=== PATIENT | male | born 1950 | race Caucasian/White ===

== ENCOUNTER 2021-12-19 16:09 | Inpatient (IN) | payer MEDICARE, MEDICAID, SELFPAY ==
--- NOTE | ~2021-12-19 | XR_ITS ---
EXAMINATION: XR FOOT, LEFT CLINICAL INFORMATION: Left first toe trauma. Red, painful, rule out fracture. COMPARISON: None TECHNIQUE: AP, lateral, and oblique views of the left foot. FINDINGS: There is enthesopathy of the distal Achilles tendon attachment. Small plantar calcaneal osteophyte. No fracture seen. XR/XR foot LT min 3V IMPRESSION: No fracture seen.
[2021-12-19 16:20] VITALS: BP 110/80; BP 158/94; PULSE 71; PULSE 74; RESP 16; TEMP 36.6; O2SAT 95; O2SAT 98; BMI 36.0
--- NOTE | 2021-12-19 16:39 | ED_ITS ---
HPI - Psych General Chief Complaint: Psychiatric Symptoms Stated Complaint: section 12 Time Seen by Provider: 12/19/21 16:18 History of Present Illness HPI Narrative: Patient is a 71-year-old male with a history of bipolar disorder. Patient has not sleeping. Up all night. Not functioning well at home. Denies any suicidal homicidal ideation. Patient had thoughts about different subjects. He was in the question previously. Patient denies any coughing congestion decrea sed the symptoms. He is vaccinated for COVID. Patient was evaluated in the ED. sent in for admission. Related Data Home Medications Medication Instructions Recorded Confirmed amlodipine 10 mg tablet 10 mg PO DAILY 12/19/21 12/19/21 aspirin 81 mg capsule,delayed 81 mg PO DAILY 12/19/21 12/19/21 release citalopram 40 mg tablet 40 mg PO DAILY 12/19/21 12/19/21 fenofibrate 50 mg capsule 200 mg PO DAILY 12/19/21 12/19/21 gabapentin 300 mg tablet 300 mg PO BEDTIME 12/19/21 12/19/21 glimepiride 2 mg tablet 2 mg PO QAM 12/19/21 12/19/21 hydrochlorothiazide 12.5 mg tablet 12.5 mg PO QAM 12/19/21 12/19/21 levothyroxine 50 mcg capsule 50 mcg PO QAM 12/19/21 12/19/21 lisinopril 40 mg tablet 40 mg PO QAM 12/19/21 12/19/21 metformin 1,000 mg tablet 1,000 mg PO QAM 12/19/21 12/19/21 metformin 500 mg tablet 500 mg PO QPM 12/19/21 12/19/21 Allergies Allergy/AdvReac Type Severity Reaction Status Date / Time No Known Allergies Allergy Verified 12/19/21 16:24 Review of Systems Review of Systems: No fever no chills no cough no congestion or respiratory symptoms. All system reviewed otherwise negative Yes all other systems are reviewed and are negative PMFSH Past Medical History Attestation statement: The following information was validated with the patient. Physical Exam Vital Signs: Vital Signs: Last Vital Signs Temp 98 F 12/19/21 16:20 Pulse 71 12/19/21 16:20 Resp 16 12/19/21 16:20 BP 110/80 12/19/21 16:20 Pulse Ox 98 12/19/21 16:20 O2 Del Method 12/19/21 16:20 BMI result Body Mass Index 36.0 Appearance: Alert. Oriented X3. No acute distress. Eyes: Pupils equal, round and reactive to light. ENT: Pharynx normal. Neck: Normal inspection. Neck supple. No lymph nodes noted. No crepitus CVS: Normal heart rate and rhythm. Pulses normal. Normal S1 and S2 Respiratory: No respiratory distress. Breath sounds normal. No Wheezing. No rales Abdomen: Soft and nontender. No rigidity. No distention. good BS x4 Skin: Skin warm and dry. Normal skin color. Normal skin turgor. Extremities: No lower extremity edema. Neurovascular intact to all extremities. No Lacerations. No Rash Neuro: Oriented X 3. No motor deficit. No sensory deficit. Moving all extermities. No slurred speech. Cranial nerves 2-12 MDM - Psych MDM Narrative Medical decision making narrative: well-appearing no acute distress. Denies any suicidal homicidal ideation at this time. [facility] unaware. Patient is in place. Currently in stable condition. Discharge Plan Discharge Clinical Impression: Bipolar disorder Patient Disposition: Still a Patient Prescriptions: No Action citalopram 40 mg Tablet 40 mg PO DAILY amlodipine 10 mg Tablet 10 mg PO DAILY aspirin 81 mg Capsule,Delayed Release(Dr/Ec) 81 mg PO DAILY fenofibrate 50 mg Capsule 200 mg PO DAILY gabapentin 300 mg Tablet 300 mg PO BEDTIME glimepiride 2 mg Tablet 2 mg PO QAM Rx Instructions: administer with breakfast metformin 1,000 mg Tablet 1,000 mg PO QAM lisinopril 40 mg Tablet 40 mg PO QAM hydrochlorothiazide 12.5 mg Tablet 12.5 mg PO QAM levothyroxine 50 mcg Capsule 50 mcg PO QAM metformin 500 mg Tablet 500 mg PO QPM
[2021-12-19 16:54] LABS: MANUAL DIFF FLAG NO
[2021-12-19 16:55] LABS: COVID-19 Test Negative (Negative)
[2021-12-19 17:03] LABS: Basophils Absolute Auto 0.1 X10*3/uL (0.0-0.2); Basophils Percent Auto 0.8 % (0-2); Eosinophils Absolute Auto 0.4 X10*3/uL (0.0-0.4); Eosinophils Percent Auto 5.8 % (0-4); Hematocrit 35.6 % (42.0-52.0); Imm Gran Abs Auto 0.02 X10*3/uL (0.00-0.03); Imm Gran Pct Auto 0.3 % (0.0-0.4); Lymphocytes Absolute Auto 2.9 X10*3/uL (1.2-4.9); Lymphocytes Percent Auto 45.4 % (20-40); Mean Corpuscular HGB Conc 36.5 g/dl (31.0-36.0); Mean Corpuscular Hemoglobin 34.3 pg (27.0-33.0); Mean Corpuscular Volume 93.9 fL (80.0-98.0); Mean Platelet Volume 11.1 fL (9.4-12.4); Monocytes Absolute Auto 0.6 X10*3/uL (0.1-1.2); Monocytes Percent Auto 8.9 % (2-11); Neutrophils Absolute Auto 2.5 x10*3/uL (2.0-8.3); Neutrophils Percent Auto 38.8 % (45-73); Platelet Count 175 X10*3/uL (160-400); Red Blood Count 3.79 X10*6/uL (4.60-5.80); Red Cell Distribution Width 12.4 % (11.0-16.0); White Blood Count 6.4 X10*3/uL (4.8-10.8)
[2021-12-19 17:11] LABS: Alanine Aminotransferase 59 U/L (0-40); Albumin Level 4.6 g/dL (3.5-5.0); Alkaline Phosphatase 28 U/L (39-117); Anion Gap 18 (12-20); Aspartate Amino Transferase 85 U/L (5-37); Bilirubin Direct 0.2 mg/dL (0.0-0.5); Bilirubin Total 0.5 mg/dL (0.0-1.0); Blood Urea Nitrogen 27 mg/dL (9-16); Calcium 9.8 mg/dL (8.4-10.2); Carbon Dioxide 23 mmol/L (22-29); Chloride 105 mmol/L (96-108); Creatinine Clr Calc Pharmacy 58.5; Estimated Glomerular Filt Rate 52; Glucose Random 80 mg/dL (60-115); Potassium 4.3 mmol/L (3.3-5.1); Sodium 142 mmol/L (135-145); Total Protein 7.8 g/dL (6.5-8.0)
[2021-12-19 17:31] LABS: TSH reflex Free T4 1.84 uIU/mL (0.32-4.0)
--- OUTSIDE RECORDS SUMMARY | 2021-12-19 17:41 | XMS_ITS | Continuity of Care Document ---
:1950 Author Organization [facility] Address [address] [place] [address] Drive [address] [place] [address]- Care Team Providers Name Role Phone OsmanyhildaMadonna Bhandari DO Primary Care Physician [place] [facility] [place](s): 11/16/21 - 12/16/[address] [place], [place] [address] Attending Physician: Afia Mallory Admitting Physician: Afia Mallory Referring Physician: AdmtrAfia Allergies, Adverse Reactions, Alerts No Known Allergies Immunizations Given and Recorded Vaccine Date Status Refusal Reason tetanus/diphtheria/pertussis, acel(Tdap) 06/13/11 Given Medications amLODIPine 5 mg oral tablet 5 mg, 1, tablet, By Mouth, Daily, # 30 tablet, Refills 0, Maintenance, 05/17/21 13:56:00 EDT, Partial fill upon patient request if the prescription is for a schedule II opioid drug. Start Date: 05/17/21 Status: Orderedaspirin 81 mg oral delayed release tablet 81 mg, 1, tablet, By Mouth, Daily, # 30 tablet, Refills 0, Maintenance, 05/17/21 13:56:00 EDT, Partial fill upon patient request if the prescription is for a schedule II opioid drug. Start Date: 05/17/21 Status: Orderedcarbamazepine 200 mg oral capsule, extended release 1 capsule = 200 mg, By Mouth, Daily at bedtime, 0 Refills, Maintenance, 07/18/21 17:20:00 EDT, Partial fill upon patient request if the prescription is for a schedule II opioid drug. Start Date: 07/18/21 Status: Orderedcitalopram 20 mg oral tablet 20 mg, 1, tablet, By Mouth, Daily, # 90 tablet, Refills 0, Maintenance, 05/17/21 13:54:00 EDT, Partial fill upon patient request if the prescription is for a schedule II opioid drug. Start Date: 05/17/21 Status: Orderedfenofibrate 40 mg oral tablet 2 tablet = 80 mg, By Mouth, Daily, 0 Refills, Maintenance, 07/18/21 16:41:00 EDT, Partial fill upon patient request if the prescription is for a schedule II opioid drug. Start Date: 07/18/21 Status: OrderedFish Oil 500 mg oral capsule 2 capsule = 1,000 mg, By Mouth, 2 times a day, 0 Refills, Maintenance, 05/17/21 13:56:00 EDT, Capsule, Partial fill upon patient request if the prescription is for a schedule II opioid drug. Start Date: 05/17/21 Status: Orderedgabapentin 100 mg oral capsule See Instructions, 1 capsule by mouth daily x 1 wk, then 2 capsule daily x 1 wk , then 3 capsule daily, # 90 capsule, Refills 5, Tot. Refills 5, Maintenance, 11/01/21 9:41:00 EDT, Instructions Replace Required Details, Route to Pharmacy Electronic... Start Date: 11/01/21 Status: OrderedGlimepiride = 2 mg, By Mouth, Daily, 0 Refills, Maintenance, 07/18/21 16:46:00 EDT, Partial fill upon patient request if the prescription is for a schedule II opioid drug. Start Date: 07/18/21 Status: OrderedhydroCHLOROthiazide 12.5 mg oral capsule 1 capsule = 12.5 mg, By Mouth, Daily, # 30 capsule, 0 Refills, Maintenance, 05/17/21 13:57:00 EDT, Capsule, Partial fill upon patient request if the prescription is for a schedule II opioid drug. Start Date: 05/17/21 Status: Orderedlevothyroxine 0.05 mg oral tablet 1 tablet = 50 mcg, By Mouth, Daily, # 30 tablet, 0 Refills, Maintenance, 05/17/21 13:57:00 EDT, Tablet, Partial fill upon patient request if the prescription is for a schedule II opioid drug. Start Date: 05/17/21 Status: Orderedlisinopril 10 mg oral tablet 10 mg, 1, tablet, By Mouth, Daily, # 90 tablet, Refills 0, Maintenance, 05/17/21 13:55:00 EDT, Partial fill upon patient request if the prescription is for a schedule II opioid drug. Start Date: 05/17/21 Status: Orderedlisinopril 40 mg oral tablet 1 tablet = 40 mg, By Mouth, Daily, # 30 tablet, 0 Refills, Maintenance, 11/01/21 9:03:00 EDT, Tablet, Partial fill upon patient request if the prescription is for a schedule II opioid drug. Start Date: 11/01/21 Status: OrderedmetFORMIN 500 mg oral tablet 1 tablet = 500 mg, By Mouth, Daily, with meals, # 30 tablet, 0 Refills, Maintenance, 05/17/21 13:56:00 EDT, Tablet, Partial fill upon patient request if the prescription is for a schedule II opioid drug. Start Date: 05/17/21 Status: Orderedmetoprolol 200 mg oral tablet, extended release 1 tablet = 200 mg, By Mouth, Daily, # 30 tablet, 0 Refills, Maintenance, 11/01/21 9:04:00 EDT, ER Tablet, Partial fill upon patient request if the prescription is for a schedule II opioid drug. Start Date: 11/01/21 Status: Orderedmetoprolol 50 mg oral tablet 50 mg, 1, tablet, By Mouth, 2 times a day, # 60 tablet, Refills 0, Maintenance, 05/17/21 13:55:00 EDT, Partial fill upon patient request if the prescription is for a schedule II opioid drug. Start Date: 05/17/21 Status: OrderedQUEtiapine 50 mg oral tablet, extended release 2 tablet = 100 mg, By Mouth, Daily, # 60 tablet, 0 Refills, Maintenance, 05/17/21 13:54:00 EDT, ER Tablet, Partial fill upon patient request if the prescription is for a schedule II opioid drug. Start Date: 05/17/21 Status: Orderedsimvastatin 20 mg/5 mL oral suspension 5 mL = 20 mg, By Mouth, Daily in PM, on an empty stomach, # 150 mL, 0 Refills, Maintenance, 05/17/2212:56:00 EDT, Suspension, Partial fill upon patient request if the prescription is for a schedule IIopioid drug. Start Date: 05/17/21 Status: OrderedVitamin D3 400 intl units/mL oral liquid 1 mL = 10 mcg, By Mouth, Daily, with food, # 50 mL, 0 Refills, Maintenance, 05/17/21 13:57:00 EDT, Liquid, Partial fill upon patient request if the prescription is for a schedule II opioid drug. Start Date: 05/17/21 Status: Ordered Problem List Condition Confirmation Course Effective Status Health Informa nt Dates Status Bipolar disorder Confirmed Active Morbid obesity with BMI Confirmed Active of 40.0-44.9, adult Diabetes Confirmed Active GERD (gastroesophageal Confirmed Active reflux disease) HTN (hypertension) Confirmed Active Hypertriglyceridemia Confirmed Active Hypothyroidism Confirmed Active Severe obesity Confirmed Active Social History Social History Type Response Smoking Status Former smoker, quit more francisca n 30 days ago; Other: < 1 pack a day for 30 yrs; entered on: 06/05/21 Sex Implantable Device List Procedure Provider Procedure Date Device Type Site Repair Hernia Inguinal Tresa AMAYA, 07/20/21 Unknown Gr oin Left Laparoscopic Audi Device Serial Lot or Manufacturing Expiration Distinct MRI Implan table Assigning Identifier Number Batch Date Date Identification Safety Status Authority Number Code Unknown [id number] [email or web address] Unknown 10/21/25 Unknown Unknown Active Unknown [id number] Procedure Provider Procedure Date Device Type Site Repair Hernia Inguinal Tresa AMAYA, 07/20/21 Unknown Gr oin Right Laparoscopic Audi Device Serial Lot or Manufacturing Expiration Distinct MRI Implan table Assigning Identifier Number Batch Date Date Identification Safety Status Authority Number Code Unknown [id number] [email or web address] Unknown 10/21/25 Unknown Unknown Active Unknown [id number] Patient Care team information PersonnelName: Madonna Louis DO Address: Address: [address] [place] [address]
--- OUTSIDE RECORDS SUMMARY | 2021-12-19 17:41 | XMS_ITS | Continuity of Care Document ---
:1950 Author Organization [facility] Address Unavailable , Care Team Providers Name Role Phone NehalibiaMadonna Bhandari DO Primary Care Physician [place] [facility] [place] 06/12/21 - 07/12/21 [facility] Allergies, Adverse Reactions, Alerts No Known Allergies [...] II opioid drug. Start Date: 05/17/21 Status: Orderedcitalopram 20 mg oral tablet 20 mg, 1, tablet, By Mouth, Daily, # 90 tablet, Refills 0, Maintenance, 05/17/21 13:54:00 EDT, Partial fill upon patient request if the prescription is for a schedule II opioid drug. Start Date: 05/17/21 Status: OrderedFish Oil 500 mg oral capsule 2 capsule = 1,000 mg, By Mouth, 2 times a day, 0 Refills, Maintenance, 05/17/21 13:56:00 EDT, Capsule, Partial fill upon patient request if the prescription is for a schedule II opioid drug. Start Date: 05/17/21 Status: OrderedhydroCHLOROthiazide 12.5 mg oral capsule 1 [...] II opioid drug. Start Date: 05/17/21 Status: OrderedmetFORMIN 500 mg oral tablet 1 tablet = 500 mg, By Mouth, Daily, with meals, # 30 tablet, 0 Refills, Maintenance, 05/17/21 13:56:00 EDT, Tablet, Partial fill upon patient request if the prescription is for a schedule II opioid drug. Start Date: 05/17/21 Status: Orderedmetoprolol 50 mg oral tablet 50 [...] Date: 05/17/21 Status: Ordered Problem List Condition Effective Dates Status Health Status Informant Bipolar disorder(Confirmed) Active Morbid obesity with BMI of 40.0-44.9, Active adult(Confirmed) Diabetes(Confirmed) Active GERD (gastroesophageal reflux Active disease)(Confirmed) HTN (hypertension)(Confirmed) Active Hypertriglyceridemia(Confirmed) Active Hypothyroidism(Confirmed) Active Severe obesity(Confirmed) Active Social History Social History Type Response Smoking Status Former smoker, quit more francisca n 30 days ago; Other: < 1 pack a day for 30 yrs; entered on: 06/05/21 Sex
--- OUTSIDE RECORDS SUMMARY | 2021-12-19 17:41 | XMS_ITS | Continuity of Care Document ---
:1950 Author Organization [facility] Address [address] [facility], 3rd Floor, [address] [place] [address]- Care Team Providers Name Role Phone Madonna Louis DO Primary Care Physician [place] [facility] [place] 11/01/21 - 12/01/21 [facility] [address] [facility], [address]rd Floor, [address] [place] [id number] Attending Physician: Afia Mallory [...] Identification Safety Status Authority Number Code Unknown [id number] [email or web address] Unknown 10/21/25 Unknown Unknown Active Unknown [id number] Procedure Provider Procedure Date Device Type Site Repair Hernia Inguinal Tresa AMAYA, 07/20/21 Unknown Gr oin Right Laparoscopic Audi Device Serial Lot or Manufacturing Expiration Distinct MRI Implan table Assigning Identifier Number Batch Date Date Identification Safety Status Authority Number Code Unknown [id number] [email or web address] Unknown 10/21/25 Unknown Unknown Active Unknown [id number] Patient Care team information PersonnelName: Ryan Louis DOla Address: Address: [address] [place] [address]
--- OUTSIDE RECORDS SUMMARY | 2021-12-19 17:41 | XMS_ITS | Continuity of Care Document ---
:1950 Author Organization [facility] Address [address] [place] [address]- Care Team Providers Name Role Phone OsmanyhildaMadonna Bhandari DO Primary Care Physician Encounter [facility] [place] Date(s): 07/20/21 - 07/20/[address] [address] Discharge Disposition: A-D/C Home Attending Physician: Audi Gtz MD Admitting Physician: Audi Gtz MD Referring Physician: Audi Gtz MD Allergies, Adverse Reactions, Alerts No Known Allergies [...] II opioid drug. Start Date: 05/17/21 Status: OrderedGlimepiride = 2 mg, By Mouth, [...] II opioid drug. Start Date: 05/17/21 Status: Orderedibuprofen 800 mg oral tablet 800 mg, 1, tablet, By Mouth, 3 times a day, for 3 days, # 9 tablet, Refills 0, Tot. Refills 0, Acute07/23/21 11:30:00 EDT, 07/20/21 11:30:00 EDT, Print Requisition, Partial fill upon patient request if the prescription is for a schedule II opioid drug. Start Date: 07/20/21 Stop Date: 07/23/21 Status: Orderedlevothyroxine 0.05 mg oral tablet 1 [...] II opioid drug. Start Date: 05/17/21 Status: OrderedoxyCODONE 5 mg oral tablet 5 mg, 1, tablet, By Mouth, Every 6 hours, PRN, for 3 days, # 12 tablet, Refills 0, Tot. Refills 0, Acute 07/23/21 11:30:00 EDT, Pain , Severe, 07/20/21 11:30:00 EDT, Print Requisition, Partial fill upon patient request if the prescription is for a su... Start Date: 07/20/21 Stop Date: 07/23/21 Status: OrderedQUEtiapine 50 mg oral tablet, extended [...] schedule IIopioid drug. Start Date: 05/17/21 Status: OrderedTylenol 325 mg oral tablet 975 mg, 3, tablet, By Mouth, 3 times a day, for 3 days, # 27 tablet, Refills 0, Tot. Refills 0, Acute 07/23/21 11:30:00 EDT, 07/20/21 11:30:00 EDT, Print Requisition, Partial fill upon patient request if the prescription is for a schedule II opioid drug. Start Date: 07/20/21 Stop Date: 07/23/21 Status: OrderedVitamin D3 400 intl units/mL oral [...] Hypertriglyceridemia(Confirmed) Active Hypothyroidism(Confirmed) Active Severe obesity(Confirmed) Active Procedures Procedure Date Related Diagnosis Body Site Status Laparoscopy, surgical; repair initial Completed inguinal hernia bilateral Vital Signs Most recent to oldest 1 2 3 [Reference Range]: Height 170.18 cm 170.18 cm (07/20/21 6:34 AM) (07/18/21 4:35 PM) Weight 122.73 kg 122.73 kg (07/20/21 6:34 AM) (07/18/21 4:35 PM) Oxygen Saturation [94-100 95 % 95 % 92 % %] (07/20/21 12:30 PM) (07/20/21 12:15 PM) *L* (07/20/21 12:00 P M) Pulse Rate [55-90 bpm] 65 bpm (07/20/21 6:34 AM) Body Mass Index 42.38 42.38 [18.5-24.99] *>HHI* *>HHI* (07/20/21 6:34 AM) (07/18/21 4:35 PM) Blood Pressure 146/86 mm Hg 143/85 mm Hg 131/79 mm Hg [90-138/55-84 mm Hg] *H* *H* (07/20/21 12 :00 PM) (07/20/21 12:30 PM) (07/20/21 12:15 PM) Respiratory Rate [16-30 16 br/min 21 br/min 18 br/mi n br/min] (07/20/21 12:30 PM) (07/20/21 12:15 PM) (07/20/21 1 2:00 PM) Temperature [96.8-100.4 99.6 DegF 97.4 DegF 97.4 Deg F DegF] (07/20/21 2:00 PM) (07/20/21 11:30 AM) (07/20/21 6: 34 AM) Liters per Minute 3 L/min (07/20/21 11:45 AM) Mode of Delivery (Oxygen) Room air Nasal cannula Shovel mask (07/20/21 12:30 PM) (07/20/21 11:45 AM) (07/20/21 1 1:30 AM) Blood pressure sites Arm, left (07/20/21 6:34 AM) Temperature Route Temporal Temporal (07/20/21 11:30 AM) (07/20/21 6:34 AM) Dry Weight 122.73 kg (07/18/21 4:35 PM) Dry Weight Obtained Via Patient/family stated (07/18/21 4:35 PM) Social History Social History Type Response Smoking Status Former smoker, quit more francisca n 30 days ago; Other: < 1 pack a day for 30 yrs; entered on: 06/05/21 Sex Medical Equipment Implanted Date:07/20/21 Target Site:Groin Right Description Quantity MRI Core Oncology Model MESH 3D MAX MID LG RT 4X6IN - BARD ([id number]) 1 Bard Unknown EMMANUEL: No Information Assigning Authority: FDA Implanted Date:07/20/21 Target Site:Groin Left Description Quantity MRI Core Oncology Model MESH 3D MAX MID X-LG LT 5X7IN - BARD ([id number]) 1 Bard Unknown EMMANUEL: No Information Assigning Authority: FDA
--- OUTSIDE RECORDS SUMMARY | 2021-12-19 17:41 | XMS_ITS | Continuity of Care Document ---
:1950 Author Organization [facility] Address Unavailable , Care Team Providers Name Role Phone Madonna Louis DO Primary Care Physician Encounter [facility] [place] Date(s): 08/06/21 - 08/13/21 [facility] Attending Physician: Huang Martínez Referring Physician: Madonna Louis DO Allergies, Adverse Reactions, Alerts No Known Allergies [...] Hypertriglyceridemia(Confirmed) Active Hypothyroidism(Confirmed) Active Severe obesity(Confirmed) Active Vital Signs Most recent to oldest [Reference Range]: 1 Height 170.18 cm (08/06/21 10:32 AM) Weight 125.1 kg (08/06/21 10:32 AM) Pulse Rate [55-90 bpm] 62 bpm (08/06/21 10:32 AM) Body Mass Index [18.5-24.99] 43.2 *>HHI* (08/06/21 10:32 AM) Blood Pressure [90-138/55-84 mm Hg] 131/86 mm Hg (08/06/21 10:32 AM) Temperature [96.8-100.4 DegF] 97.5 DegF (08/06/21 10:32 AM) Blood pressure sites Arm, left (08/06/21 10:32 AM) Temperature Route Temporal (08/06/21 10:32 AM) Weight Obtained Via Standing scale (08/06/21 10:32 AM) Social History Social History Type Response Smoking Status Former smoker, quit more francisca n 30 days ago; Other: < 1 pack a day for 30 yrs; entered on: 06/05/21 Sex Medical Equipment Implanted Date:07/20/21 Target Site:Groin Right Description Quantity MRI [employer] Model MESH 3D MAX MID LG RT 4X6IN - BARD ([id number]) 1 Bard Unknown EMMANUEL: No Information Assigning Authority: FDA Implanted Date:07/20/21 Target Site:Groin Left Description Quantity MRI [employer] Model MESH 3D MAX MID X-LG LT 5X7IN - BARD ([id number]) 1 Bard Unknown EMMANUEL: No Information Assigning Authority: FDA
--- OUTSIDE RECORDS SUMMARY | 2021-12-19 17:41 | XMS_ITS | Continuity of Care Document ---
:1950 Author Organization [facility] Address Unavailable , Care Team Providers Name Role Phone Madonna Louis DO Primary Care Physician Encounter [facility] [place] Date(s): 05/17/21 - 06/16/21 [facility] Attending Physician: Afia Mallory Admitting Physician: Afia Mallory Referring Physician: Afia Mallory Allergies, Adverse Reactions, Alerts No Known Allergies [...]
--- OUTSIDE RECORDS SUMMARY | 2021-12-19 17:41 | XMS_ITS | Continuity of Care Document ---
:1950 Author Organization [facility] Address [address] [place] [address]- Care Team Providers Name Role Phone NehalibiaMadonna Bhandari DO Primary Care Physician Encounter [facility] [place] [place] Date(s): 06/05/21 - 07/05/21 [facility] [address] [place], [place] [address] Attending Physician: Afia Mallory Admitting Physician: [...]
--- OUTSIDE RECORDS SUMMARY | 2021-12-19 17:41 | XMS_ITS | Continuity of Care Document ---
:1950 Author Organization [facility] Address [address] [place] [address] Drive [address] [place] [address]- Care Team Providers Name Role Phone Brian Madonna Ferrara DO Primary Care Physician Encounter [facility] [place] Date(s): 11/16/21 - 11/23/[address] [place], [place] [address] Attending Physician: Huang Martníez Allergies, Adverse Reactions, Alerts No Known Allergies [...] Identification Safety Status Authority Number Code Unknown [id number] [email or web address] Unknown 10/21/25 Unknown Unknown Active Unknown [id number] Procedure Provider Procedure Date Device Type Site Repair Hernia Inguinal Tresa AMAYA, 07/20/21 Unknown Gr oin Right Laparoscopic Audi Device Serial Lot or Manufacturing Expiration Distinct MRI Implan table Assigning Identifier Number Batch Date Date Identification Safety Status Authority Number Code Unknown [id number] [email or web address] Unknown 10/21/25 Unknown Unknown Active Unknown [id number] Patient Care team information PersonnelName: Madonna Louis DO Address: Address: [address] [place] [address]
--- OUTSIDE RECORDS SUMMARY | 2021-12-19 17:42 | XMS_ITS | Continuity of Care Document ---
:1950 Author Organization [facility] Address Unavailable , Care Team Providers Name Role Phone Madonna Louis DO Primary Care Physician [place] [facility] [place](s): 08/06/21 - 10/12/21 [facility] Attending Physician: Huang Martínez Referring Physician: Madonna [...] Date:07/20/21 Target Site:Groin Right Description Quantity MRI Consulted Model MESH 3D MAX MID LG RT 4X6IN - BARD ([id number]) 1 Bard Unknown EMMANUEL: No Information Assigning Authority: FDA Implanted Date:07/20/21 Target Site:Groin Left Description Quantity MRI Consulted Model MESH 3D MAX MID X-LG LT 5X7IN - BARD ([id number]) 1 Bard Unknown EMMANUEL: No Information Assigning Authority: FDA
--- OUTSIDE RECORDS SUMMARY | 2021-12-19 17:42 | XMS_ITS | Continuity of Care Document ---
:1950 Author Organization [facility] Address [address] [place] [address] Drive [address] [place] [address]- Care Team Providers Name Role Phone Madonna Louis DO Primary Care Physician Encounter [facility] Date(s): 10/09/21 - 10/16/[address] [place], [place] [address] Attending Physician: Huang Martínez Referring Physician: Madonna [...] oldest [Reference Range]: 1 Height 170.18 cm (10/09/21 3:38 PM) Weight 126.5 kg (10/09/21 3:38 PM) Pulse Rate [55-90 bpm] 60 bpm (10/09/21 3:38 PM) Body Mass Index [18.5-24.99] 43.68 *>HHI* (10/09/21 3:38 PM) Blood Pressure [90-138/55-84 mm Hg] 132/82 mm Hg (10/09/21 3:38 PM) Temperature [96.8-100.4 DegF] 95.1 DegF *L* (10/09/21 3:38 PM) Blood pressure sites Arm, left (10/09/21 3:38 PM) Temperature Route Temporal (10/09/21 3:38 PM) Social History Social History Type Response Smoking Status Former smoker, quit more francisca n 30 days ago; Other: < 1 pack a day for 30 yrs; entered on: 06/05/21 Sex Medical Equipment Implanted Date:07/20/21 Target Site:Groin Right Description Quantity MRI Grocio Model MESH 3D MAX MID LG RT 4X6IN - BARD ([id number]) 1 Bard Unknown EMMANUEL: No Information Assigning Authority: FDA Implanted Date:07/20/21 Target Site:Groin Left Description Quantity MRI Grocio Model MESH 3D MAX MID X-LG LT 5X7IN - BARD ([id number]) 1 Bard Unknown EMMANUEL: No Information Assigning Authority: FDA
--- OUTSIDE RECORDS SUMMARY | 2021-12-19 17:42 | XMS_ITS | Continuity of Care Document ---
:1950 Author Organization [facility] Address Unavailable , Care Team Providers Name Role Phone Madonna Louis DO Primary Care Physician Encounter [facility] Date(s): 05/17/21 - 05/24/21 [facility] Encounter Diagnosis Bilateral inguinal hernia (Discharge Diagnosis) - 05/17/21 Attending Physician: Huang Martínez Referring Physician: Ruben Lozano MD Allergies, Adverse Reactions, Alerts No Known [...] Hypertriglyceridemia(Confirmed) Active Hypothyroidism(Confirmed) Active Severe obesity(Confirmed) Active Diagnosis Diagnosis Type Effective Dates Health Status Clinical In formant Service Bilateral Discharge 05/17/21 inguinal hernia Diagnosis Vital Signs Most recent to oldest [Reference Range]: 1 Height 173.00 cm (05/17/21 1:49 PM) Weight 124 kg (05/17/21 1:49 PM) Pulse Rate [55-90 bpm] 61 bpm (05/17/21 1:49 PM) Body Mass Index [18.5-24.99] 41.43 *>HHI* (05/17/21 1:49 PM) Blood Pressure [90-138/55-84 mm Hg] 146/96 mm Hg *H* (05/17/21 1:49 PM) Temperature [96.8-100.4 DegF] 97.1 DegF (05/17/21 1:49 PM) Blood pressure sites Arm, left (05/17/21 1:49 PM) Temperature Route Temporal (05/17/21 1:49 PM) Social History Social History Type Response Smoking Status Never (less than 100 in life time) entered on: 05/17/21 Sex
--- OUTSIDE RECORDS SUMMARY | 2021-12-19 17:42 | XMS_ITS | Continuity of Care Document ---
:1950 Author Organization [facility] Address Unavailable , Care Team Providers Name Role Phone NehalibiaMadonna Bhandari DO Primary Care Physician Encounter [facility] Date(s): 06/15/21 - 07/15/21 [facility] Allergies, Adverse Reactions, Alerts No Known [...]
[2021-12-19 21:15] LABS: Amphetamine Screen Urine Not Detected (Not Detect); Barbiturates, Urine Not Detected (Not Detect); Benzodiazepines Screen Urine Not Detected (Not Detect); Cannabinoid Screen Urine Not Detected (Not Detect); Cocaine Screen Urine Not Detected (Not Detect); Fentanyl, urine Not Detected (Not Detect); Opiate Screen Urine Not Detected (Not Detect); Phencyclidine Screen Urine Not Detected (Not Detect)
[2021-12-19 21:21] VITALS: BP 140/70; PULSE 77; RESP 18; O2SAT 95
[2021-12-19] MEDS: Metoprolol Succinate ER 100 MG TAB.ER.24H 200 MG PO (21:26)
[2021-12-19] MEDS: Atorvastatin Calcium 10 MG TABLET PO (21:26)
[2021-12-19] MEDS: QUEtiapine Fumarate 300 MG TABLET 600 MG PO (21:26)
[2021-12-19] MEDS: Gabapentin 300 MG CAPSULE PO (21:26)
[2021-12-20 02:25] VITALS: BP 116/69; PULSE 68; RESP 17; TEMP 36.9; O2SAT 97
[2021-12-20] MEDS: Levothyroxine Sodium 50 MCG TABLET PO (06:48)
--- NOTE | 2021-12-20 07:11 | PC.NURSE ---
Patient remained awake most part of the night, no distress observed/reported, medication compliant, disposition per [facility] is section 12 inpatient bed search, VSS, behavior non concerning, will continue to monitor.
[2021-12-20] MEDS: lisinopriL 40 MG TABLET PO (08:47)
[2021-12-20] MEDS: Aspirin Enteric Coated 81 MG TABLET.DR PO (08:48)
[2021-12-20] MEDS: metFORMIN HCl 1,000 MG TABLET 1000 MG PO (08:48)
[2021-12-20] MEDS: Cholecalciferol (Vitamin D3) 25 MCG TABLET PO (08:48)
[2021-12-20] MEDS: amLODIPine Besylate 10 MG TABLET PO (08:48)
[2021-12-20] MEDS: Escitalopram Oxalate 20 MG TABLET PO (08:48)
[2021-12-20] MEDS: hydroCHLOROthiazide 12.5 MG TABLET PO (08:48)
--- NOTE | 2021-12-20 09:15 | PC.NURSE ---
pt seen by N. Inpatient bed search recommended. pt aware of plan. no behavioral issues observed/reported.
[2021-12-20] MEDS: Fenofibrate 160 MG TABLET PO (09:34)
[2021-12-20] MEDS: glipiZIDE 5 MG TABLET PO (09:34)
--- NOTE | 2021-12-20 09:48 | ECG_ITS ---
Test Reason : med clearance Blood Pressure : / mmHG Vent. Rate : 059 BPM Atrial Rate : 059 BPM P-R Int : 206 ms QRS Dur : 116 ms QT Int : 452 ms P-R-T Axes : 050 -35 020 degrees QTc Int : 447 ms Sinus bradycardia Left anterior fascicular block Abnormal ECG No previous ECGs available Referred By: Cinda Izquierdo Electronically Signed By:SANTA FIELD MD
[2021-12-20 11:16] VITALS: BP 142/77; PULSE 67; TEMP 36.8; O2SAT 97
[2021-12-20 14:27] LABS: Glucose, Whole Blood 151 mg/dL (60-115)
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
[2021-12-20 21:30] VITALS: BP 142/77; PULSE 67; TEMP 36.8; O2SAT 97
[2021-12-20] MEDS: Metoprolol Succinate ER 100 MG TAB.ER.24H 200 MG PO (21:42)
[2021-12-20] MEDS: QUEtiapine Fumarate 300 MG TABLET 600 MG PO (21:42)
[2021-12-20] MEDS: Gabapentin 300 MG CAPSULE PO (21:42)
[2021-12-20] MEDS: Atorvastatin Calcium 10 MG TABLET PO (21:44)
[2021-12-21] MEDS: hydrOXYzine HCL 25 MG TABLET PO ×3 (00:59→21:14)
[2021-12-21] MEDS: traZODone HCL 50 MG TABLET PO ×2 (00:59→21:14)
[2021-12-21] MEDS: Mineral Oil/Petrolatum,White 106 GM Tube 1 APPL TOPICAL ×3 (04:14→21:13)
[2021-12-21 09:08] LABS: Glucose, Whole Blood 169 mg/dL (60-115)
[2021-12-21] MEDS: metFORMIN HCl 1,000 MG TABLET 1000 MG PO (09:08)
[2021-12-21] MEDS: Cholecalciferol (Vitamin D3) 25 MCG TABLET PO (09:08)
[2021-12-21] MEDS: Levothyroxine Sodium 50 MCG TABLET PO (09:08)
[2021-12-21] MEDS: glipiZIDE 5 MG TABLET PO (09:09)
[2021-12-21] MEDS: amLODIPine Besylate 10 MG TABLET PO (09:09)
[2021-12-21] MEDS: Aspirin Enteric Coated 81 MG TABLET.DR PO (09:09)
[2021-12-21] MEDS: Fenofibrate 160 MG TABLET PO (09:09)
[2021-12-21] MEDS: hydroCHLOROthiazide 12.5 MG TABLET PO (09:09)
[2021-12-21] MEDS: lisinopriL 40 MG TABLET PO (09:09)
[2021-12-21] MEDS: Escitalopram Oxalate 5 MG TABLET 15 MG PO (09:09)
[2021-12-21 09:26] LABS: Estimated Average Glucose 148 mg/dL; Hemoglobin A1c % 6.8 %
[2021-12-21 09:48] LABS: Alanine Aminotransferase 54 U/L (0-40); Albumin Level 4.2 g/dL (3.5-5.0); Alkaline Phosphatase 26 U/L (39-117); Anion Gap 15 (12-20); Aspartate Amino Transferase 71 U/L (5-37); Bilirubin Direct 0.3 mg/dL (0.0-0.5); Bilirubin Total 0.5 mg/dL (0.0-1.0); Blood Urea Nitrogen 22 mg/dL (9-16); Calcium 9.6 mg/dL (8.4-10.2); Carbon Dioxide 25 mmol/L (22-29); Chloride 102 mmol/L (96-108); Cholesterol 114 mg/dL; Creatinine Clr Calc Pharmacy 55.3; Estimated Glomerular Filt Rate 48; Glucose Fasting 201 mg/dL (60-99); HDL Cholesterol 25 mg/dL; LDL Cholesterol Calculated 56 mg/dl; Potassium 4.3 mmol/L (3.3-5.1); Sodium 138 mmol/L (135-145); Total Protein 7.1 g/dL (6.5-8.0); Triglycerides 169 mg/dL
[2021-12-21 10:08] LABS: Free T4 (Free Thyroxine) 0.76 ng/dL (0.71-1.85); Thyroid Stimulating Hormone 3.28 uIU/mL (0.32-4.0)
[2021-12-21 10:59] LABS: Vitamin B12 382 pg/mL (200-900)
[2021-12-21 11:15] VITALS: BP 125/72; PULSE 67; RESP 16; TEMP 36.2; O2SAT 95
[2021-12-21] MEDS: carBAMazepine ER 200 MG TAB.ER.12H PO (11:24)
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
[2021-12-21] MEDS: Magnesium Hydrox/Alum Hydrox 30 ML ORAL.SUSP PO ×2 (16:44→20:27)
[2021-12-21] MEDS: carBAMazepine ER 200 MG TAB.ER.12H 400 MG PO (21:14)
[2021-12-21] MEDS: Gabapentin 300 MG CAPSULE PO (21:14)
[2021-12-21] MEDS: Metoprolol Succinate ER 100 MG TAB.ER.24H 200 MG PO (21:14)
[2021-12-21] MEDS: Atorvastatin Calcium 10 MG TABLET PO (21:14)
[2021-12-21] MEDS: QUEtiapine Fumarate 300 MG TABLET 600 MG PO (21:14)
[2021-12-21 21:30] VITALS: BP 123/78; PULSE 74; RESP 18; TEMP 35.9; O2SAT 97
[2021-12-21 21:58] LABS: Glucose, Whole Blood 125 mg/dL (60-115)
[2021-12-22 08:13] LABS: Glucose, Whole Blood 168 mg/dL (60-115)
[2021-12-22] MEDS: Escitalopram Oxalate 5 MG TABLET 15 MG PO (08:41)
[2021-12-22] MEDS: Levothyroxine Sodium 50 MCG TABLET PO (08:41)
[2021-12-22] MEDS: Aspirin Enteric Coated 81 MG TABLET.DR PO (08:42)
[2021-12-22] MEDS: metFORMIN HCl 1,000 MG TABLET 1000 MG PO (08:42)
[2021-12-22] MEDS: carBAMazepine ER 200 MG TAB.ER.12H PO (08:42)
[2021-12-22] MEDS: glipiZIDE 5 MG TABLET PO (08:42)
[2021-12-22] MEDS: Cholecalciferol (Vitamin D3) 25 MCG TABLET PO (08:42)
[2021-12-22] MEDS: hydroCHLOROthiazide 12.5 MG TABLET PO (08:42)
[2021-12-22] MEDS: amLODIPine Besylate 10 MG TABLET PO (08:42)
[2021-12-22] MEDS: Fenofibrate 160 MG TABLET PO (08:42)
[2021-12-22] MEDS: lisinopriL 40 MG TABLET PO (08:43)
[2021-12-22 09:05] VITALS: BP 120/73; PULSE 67; RESP 16; TEMP 36.3; O2SAT 97
[2021-12-22] MEDS: Mineral Oil/Petrolatum,White 106 GM Tube 1 APPL TOPICAL ×2 (09:14→21:55)
--- NOTE | 2021-12-22 14:50 | HO.PSYCHPN ---
Subjective Subjective Date of Service: 12/22/21 Reason For Visit: perla Subjective Notes: Conditional Voluntary Interim History: Pt writing on journal. 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 He draws timeline of times he has been in hospital throughout his life. Pt irritable at times. He states I'm in custodial. I don't need to be here. Per staff, pt slept through the night. He continues on one to one due to poor boundaries, especially with females. He stayed mostly in his room. Medication Compliance: Yes Side effects from medications: No Review of Systems Review of Systems CVS: No c/o chest pain, palpitations, no SOB HEADSTART TEACHER: No c/o dizziness, headache GI: No c/o Nausea, Vomiting, diarrhea, constipation or heartburn Yes all other systems are reviewed and are negative Mental Status Exam Mental Status Exam Narrative: Alert. He is overweight/ obese, adequately dressed and groomed. poor eye contact, attentive. No Tics or Tremors. No abnormal involuntary movements. calm, cooperative. Non-pressured speech, spontaneous with regular rate and rhythm, normal volume and prosody. No prolonged speech latency or dysarthria. Affect is irritable. no SI/SIB/HI/AVH expressed. Thoughts are linear in brief interaction. Insight/ Judgment impaired x 2. Diagnostics Vital Signs (24Hr): Vital Signs - 24 hr 12/23/21 09:33 12/23/21 21:00 Temperature 97.6 F 97.1 F Pulse Rate 61 70 Respiratory Rate 15 18 Blood Pressure 144/70 H 125/60 Pulse Oximetry 95 97 Oxygen Delivery Method Room Air Room Air BMI result Body Mass Index 36.0 Labs Results: 12/19/21 16:50 12/21/21 08:40 Labs: Laboratory Results - last 48 hr 12/22/21 12/22/21 12/23/21 07:58 22:02 08:47 POC Glucose 168 H 193 H 131 H 12/23/21 21:11 POC Glucose 162 H Imaging Radiology Impressions: ITS Impressions Foot X-Ray 12/21/21 13:55 IMPRESSION: No fracture seen. Medications Medications Current Medications Acetaminophen (Acetaminophen 325 Mg Tablet) 650 mg PO Q6H PRN PRN Reason: Headache/Pain Mild Scale (1-3) Al Hydroxide/Mg Hydroxide (Magnesium Hydrox/Alum Hydrox 30 Ml Oral.Susp) 30 ml PO Q6H PRN PRN Reason: Heartburn/Nausea Last Admin: 12/21/21 20:27 Dose: 30 ml Amlodipine Besylate (Amlodipine Besylate 10 Mg Tablet) 10 mg PO DAILY [facility]; Protocol Last Admin: 12/23/21 09:40 Dose: 10 mg Aspirin (Aspirin Enteric Coated 81 Mg Tablet.Dr) 81 mg PO DAILY [facility] Last Admin: 12/23/21 09:40 Dose: 81 mg Atorvastatin Calcium (Atorvastatin Calcium 10 Mg Tablet) 10 mg PO BEDTIME [facility] Last Admin: 12/23/21 21:04 Dose: 10 mg Carbamazepine (Carbamazepine Er 200 Mg Tab.Er.12h) 200 mg PO DAILY [facility] Last Admin: 12/23/21 09:40 Dose: 200 mg Carbamazepine (Carbamazepine Er 200 Mg Tab.Er.12h) 400 mg PO BEDTIME [facility] Last Admin: 12/23/21 21:05 Dose: 400 mg Fenofibrate (Fenofibrate 160 Mg Tablet) 160 mg PO DAILY [facility] Last Admin: 12/23/21 09:41 Dose: 160 mg Gabapentin (Gabapentin 300 Mg Capsule) 300 mg PO BEDTIME [facility] Last Admin: 12/23/21 21:05 Dose: 300 mg Glipizide (Glipizide 5 Mg Tablet) 5 mg PO DAILY [facility] Last Admin: 12/23/21 09:40 Dose: 5 mg Hydrochlorothiazide (Hydrochlorothiazide 12.5 Mg Tablet) 12.5 mg PO DAILY [facility]; Protocol Last Admin: 12/23/21 09:40 Dose: 12.5 mg Hydroxyzine HCl (Hydroxyzine Hcl 25 Mg Tablet) 25 mg PO Q6H PRN PRN Reason: Anxiety Last Admin: 12/22/21 21:56 Dose: 25 mg Levothyroxine Sodium (Levothyroxine Sodium 50 Mcg Tablet) 50 mcg PO DAILY@0630 [facility] Last Admin: 12/23/21 09:41 Dose: 50 mcg Lisinopril (Lisinopril 40 Mg Tablet) 40 mg PO DAILY [facility]; Protocol Last Admin: 12/23/21 09:40 Dose: 40 mg Magnesium Hydroxide (Milk Of Magnesia 30 Ml Oral.Susp) 30 ml PO DAILY PRN PRN Reason: Constipation Metformin HCl (Metformin Hcl 1,000 Mg Tablet) 1,000 mg PO DAILY [facility] Last Admin: 12/23/21 09:40 Dose: 1,000 mg Metoprolol Succinate (Metoprolol Succinate Er 100 Mg Tab.Er.24h) 200 mg PO BEDTIME ED; Protocol Last Admin: 12/23/21 21:04 Dose: 200 mg Multi-Ingred Cream/Lotion/Oil/Oint (Mineral Oil/Petrolatum,White 106 Gm Tube) 1 appl TOPICAL BID ED Last Admin: 12/23/21 21:44 Dose: Not Given Nicotine Polacrilex (Nicotine Polacrilex 2 Mg Gum) 2 mg BUCCAL Q2H PRN PRN Reason: Nicotine Cravings Quetiapine Fumarate (Quetiapine Fumarate 300 Mg Tablet) 600 mg PO BEDTIME ED Last Admin: 12/23/21 21:04 Dose: 600 mg Trazodone HCl (Trazodone Hcl 50 Mg Tablet) 50 mg PO BEDTIME PRN PRN Reason: Insomnia Last Admin: 12/22/21 21:55 Dose: 50 mg Vitamin D (Cholecalciferol (Vitamin D3) 25 Mcg Tablet) 25 mcg PO DAILY ED Last Admin: 12/23/21 09:41 Dose: 25 mcg Allergies Allergies Allergy/AdvReac Type Severity Reaction Status Date / Time No Known Allergies Allergy Verified 12/19/21 16:24 Assessment & Plan Assessment & Plan (1) Bipolar 1 disorder: Status: Acute Code(s): F31.9 - Bipolar disorder, unspecified Plan Wade is a 71 y.o. male who carries a dx of bipolar I disorder. He is [place]ibian speaking. He presented to [facility] on 12/19/21 upon son?s request due to manic presentation x 1 week i.e. not sleeping, up all night, hyperactive, bizarre behaviors (flooded the bathroom, rearranging things in the home, talking to his family as if 30 years have passed, drawing on the [place]), and disinhibition. He has been med adherent. Unclear precipitating factor. Hx of multiple psych inpatient admissions and long hx of bipolar symptomatology. 12/20: obtain MOCA from OT once perla has resolved. decreased lexapro to 15 mg HS due to relative contraindication for bipolar spectrum disorder. Obtain further collateral info. 12/21: pt Rxed tegretol 200/400 outpt, which he apparently has not been taking. restart. watch cells counts, Na, and LFTs. some renal impairment as well. 10/29 stop lexapro. continue other medications I spent minutes with the patient and/or on the patient floor today, greater than?50% of which was spent counseling/coordinating care. Reason for contiued inpatient stay Substantial Risk for: harm to others and inability to function
[2021-12-22] MEDS: traZODone HCL 50 MG TABLET PO (21:55)
[2021-12-22] MEDS: QUEtiapine Fumarate 300 MG TABLET 600 MG PO (21:55)
[2021-12-22] MEDS: Gabapentin 300 MG CAPSULE PO (21:55)
[2021-12-22] MEDS: carBAMazepine ER 200 MG TAB.ER.12H 400 MG PO (21:55)
[2021-12-22] MEDS: Metoprolol Succinate ER 100 MG TAB.ER.24H 200 MG PO (21:56)
[2021-12-22] MEDS: hydrOXYzine HCL 25 MG TABLET PO (21:56)
[2021-12-22] MEDS: Atorvastatin Calcium 10 MG TABLET PO (21:56)
[2021-12-22 22:06] LABS: Glucose, Whole Blood 193 mg/dL (60-115)
[2021-12-22 22:09] VITALS: BP 131/86; PULSE 71; RESP 16; TEMP 35.9; O2SAT 95
[2021-12-23 08:52] LABS: Glucose, Whole Blood 131 mg/dL (60-115)
[2021-12-23 09:33] VITALS: BP 144/70; PULSE 61; RESP 15; TEMP 36.4; O2SAT 95
[2021-12-23] MEDS: lisinopriL 40 MG TABLET PO (09:40)
[2021-12-23] MEDS: Escitalopram Oxalate 5 MG TABLET 15 MG PO (09:40)
[2021-12-23] MEDS: glipiZIDE 5 MG TABLET PO (09:40)
[2021-12-23] MEDS: metFORMIN HCl 1,000 MG TABLET 1000 MG PO (09:40)
[2021-12-23] MEDS: hydroCHLOROthiazide 12.5 MG TABLET PO (09:40)
[2021-12-23] MEDS: amLODIPine Besylate 10 MG TABLET PO (09:40)
[2021-12-23] MEDS: Aspirin Enteric Coated 81 MG TABLET.DR PO (09:40)
[2021-12-23] MEDS: carBAMazepine ER 200 MG TAB.ER.12H PO (09:40)
[2021-12-23] MEDS: Fenofibrate 160 MG TABLET PO (09:41)
[2021-12-23] MEDS: Cholecalciferol (Vitamin D3) 25 MCG TABLET PO (09:41)
[2021-12-23] MEDS: Levothyroxine Sodium 50 MCG TABLET PO (09:41)
[2021-12-23] MEDS: Mineral Oil/Petrolatum,White 106 GM Tube 1 APPL TOPICAL (09:45)
--- NOTE | 2021-12-23 13:34 | HO.PSYCHPN ---
Subjective Subjective Date of Service: 12/23/21 Reason For Visit: perla Subjective Notes: Conditional Voluntary Interim History: Pt calmer, less intrusive behaviors towards female individuals. Pt continues on due to inappropriate boundaries. Pt somewhat irritable but less than days prior. He is taking medications as prescribed. No SI/HI. Slept last night. Taking medications. Medication Compliance: Yes Side effects from medications: No Attending Groups: No Review of Systems Review of Systems CVS: No c/o chest pain, palpitations, no SOB INTERMEDIATE MANAGER: No c/o dizziness, headache GI: No c/o Nausea, Vomiting, diarrhea, constipation or heartburn Yes all other systems are reviewed and are negative Mental Status Exam Mental Status Exam Narrative: Alert. He is overweight/ obese, adequately dressed and groomed. poor eye contact, attentive. No Tics or Tremors. No abnormal involuntary movements. calm, cooperative. Non-pressured speech, spontaneous with regular rate and rhythm, normal volume and prosody. No prolonged speech latency or dysarthria. Affect is irritable. no SI/SIB/HI/AVH expressed. Thoughts are linear in brief interaction. Insight/ Judgment impaired x 2. Diagnostics Vital Signs (24Hr): Vital Signs - 24 hr 12/23/21 09:33 12/23/21 21:00 Temperature 97.6 F 97.1 F Pulse Rate 61 70 Respiratory Rate 15 18 Blood Pressure 144/70 H 125/60 Pulse Oximetry 95 97 Oxygen Delivery Method Room Air Room Air BMI result Body Mass Index 36.0 Labs Results: 12/19/21 16:50 12/21/21 08:40 Labs: Laboratory Results - last 48 hr 12/22/21 12/22/21 12/23/21 07:58 22:02 08:47 POC Glucose 168 H 193 H 131 H 12/23/21 21:11 POC Glucose 162 H Imaging Radiology Impressions: ITS Impressions Foot X-Ray 12/21/21 13:55 IMPRESSION: No fracture seen. Medications Medications Current Medications Acetaminophen (Acetaminophen 325 Mg Tablet) 650 mg PO Q6H PRN PRN Reason: Headache/Pain Mild Scale (1-3) Al Hydroxide/Mg Hydroxide (Magnesium Hydrox/Alum Hydrox 30 Ml Oral.Susp) 30 ml PO Q6H PRN PRN Reason: Heartburn/Nausea Last Admin: 12/21/21 20:27 Dose: 30 ml Amlodipine Besylate (Amlodipine Besylate 10 Mg Tablet) 10 mg PO DAILY [facility]; Protocol Last Admin: 12/23/21 09:40 Dose: 10 mg Aspirin (Aspirin Enteric Coated 81 Mg Tablet.Dr) 81 mg PO DAILY [facility] Last Admin: 12/23/21 09:40 Dose: 81 mg Atorvastatin Calcium (Atorvastatin Calcium 10 Mg Tablet) 10 mg PO BEDTIME [facility] Last Admin: 12/23/21 21:04 Dose: 10 mg Carbamazepine (Carbamazepine Er 200 Mg Tab.Er.12h) 200 mg PO DAILY [facility] Last Admin: 12/23/21 09:40 Dose: 200 mg Carbamazepine (Carbamazepine Er 200 Mg Tab.Er.12h) 400 mg PO BEDTIME ED Last Admin: 12/23/21 21:05 Dose: 400 mg Fenofibrate (Fenofibrate 160 Mg Tablet) 160 mg PO DAILY [facility] Last Admin: 12/23/21 09:41 Dose: 160 mg Gabapentin (Gabapentin 300 Mg Capsule) 300 mg PO BEDTIME [facility] Last Admin: 12/23/21 21:05 Dose: 300 mg Glipizide (Glipizide 5 Mg Tablet) 5 mg PO DAILY [facility] Last Admin: 12/23/21 09:40 Dose: 5 mg Hydrochlorothiazide (Hydrochlorothiazide 12.5 Mg Tablet) 12.5 mg PO DAILY [facility]; Protocol Last Admin: 12/23/21 09:40 Dose: 12.5 mg Hydroxyzine HCl (Hydroxyzine Hcl 25 Mg Tablet) 25 mg PO Q6H PRN PRN Reason: Anxiety Last Admin: 12/22/21 21:56 Dose: 25 mg Levothyroxine Sodium (Levothyroxine Sodium 50 Mcg Tablet) 50 mcg PO DAILY@0630 [facility] Last Admin: 12/23/21 09:41 Dose: 50 mcg Lisinopril (Lisinopril 40 Mg Tablet) 40 mg PO DAILY [facility]; Protocol Last Admin: 12/23/21 09:40 Dose: 40 mg Magnesium Hydroxide (Milk Of Magnesia 30 Ml Oral.Susp) 30 ml PO DAILY PRN PRN Reason: Constipation Metformin HCl (Metformin Hcl 1,000 Mg Tablet) 1,000 mg PO DAILY [facility] Last Admin: 12/23/21 09:40 Dose: 1,000 mg Metoprolol Succinate (Metoprolol Succinate Er 100 Mg Tab.Er.24h) 200 mg PO BEDTIME [facility]; Protocol Last Admin: 12/23/21 21:04 Dose: 200 mg Multi-Ingred Cream/Lotion/Oil/Oint (Mineral Oil/Petrolatum,White 106 Gm Tube) 1 appl TOPICAL BID [facility] Last Admin: 12/23/21 21:44 Dose: Not Given Nicotine Polacrilex (Nicotine Polacrilex 2 Mg Gum) 2 mg BUCCAL Q2H PRN PRN Reason: Nicotine Cravings Quetiapine Fumarate (Quetiapine Fumarate 300 Mg Tablet) 600 mg PO BEDTIME [facility] Last Admin: 12/23/21 21:04 Dose: 600 mg Trazodone HCl (Trazodone Hcl 50 Mg Tablet) 50 mg PO BEDTIME PRN PRN Reason: Insomnia Last Admin: 12/22/21 21:55 Dose: 50 mg Vitamin D (Cholecalciferol (Vitamin D3) 25 Mcg Tablet) 25 mcg PO DAILY [facility] Last Admin: 12/23/21 09:41 Dose: 25 mcg Allergies Allergies Allergy/AdvReac Type Severity Reaction Status Date / Time No Known Allergies Allergy Verified 12/19/21 16:24 Assessment & Plan Assessment & Plan (1) Bipolar 1 disorder: Status: Acute Code(s): F31.9 - Bipolar disorder, unspecified Plan Wade is a 71 y.o. male who carries a dx of bipolar I disorder. He is [place]ore[place] speaking. He presented to [facility] on 12/19/21 upon son?s request due to manic presentation x 1 week i.e. not sleeping, up all night, hyperactive, bizarre behaviors (flooded the bathroom, rearranging things in the home, talking to his family as if 30 years have passed, drawing on the medina), and disinhibition. He has been med adherent. Unclear precipitating factor. Hx of multiple psych inpatient admissions and long hx of bipolar symptomatology. 12/20: obtain MOCA from OT once perla has resolved. decreased lexapro to 15 mg HS due to relative contraindication for bipolar spectrum disorder. Obtain further collateral info. 12/21: pt Rxed tegretol 200/400 outpt, which he apparently has not been taking. restart. watch cells counts, Na, and LFTs. some renal impairment as well. 12/22 stop lexapro. continue other medications 12/23 continue tx. I spent minutes with the patient and/or on the patient floor today, greater than?50% of which was spent counseling/coordinating care. Reason for contiued inpatient stay Substantial Risk for: harm to others and inability to function
[2021-12-23 21:00] VITALS: BP 125/60; PULSE 70; RESP 18; TEMP 36.2; O2SAT 97
[2021-12-23] MEDS: QUEtiapine Fumarate 300 MG TABLET 600 MG PO (21:04)
[2021-12-23] MEDS: Metoprolol Succinate ER 100 MG TAB.ER.24H 200 MG PO (21:04)
[2021-12-23] MEDS: Atorvastatin Calcium 10 MG TABLET PO (21:04)
[2021-12-23] MEDS: Gabapentin 300 MG CAPSULE PO (21:05)
[2021-12-23] MEDS: carBAMazepine ER 200 MG TAB.ER.12H 400 MG PO (21:05)
[2021-12-23 21:39] LABS: Glucose, Whole Blood 162 mg/dL (60-115)
[2021-12-24 08:15] VITALS: BP 136/65; PULSE 61; RESP 16; TEMP 35.7; O2SAT 99
[2021-12-24] MEDS: lisinopriL 40 MG TABLET PO (08:30)
[2021-12-24] MEDS: carBAMazepine ER 200 MG TAB.ER.12H PO (08:31)
[2021-12-24] MEDS: Fenofibrate 160 MG TABLET PO (08:31)
[2021-12-24] MEDS: amLODIPine Besylate 10 MG TABLET PO (08:31)
[2021-12-24] MEDS: hydroCHLOROthiazide 12.5 MG TABLET PO (08:31)
[2021-12-24] MEDS: Cholecalciferol (Vitamin D3) 25 MCG TABLET PO (08:32)
[2021-12-24] MEDS: glipiZIDE 5 MG TABLET PO (08:32)
[2021-12-24] MEDS: Levothyroxine Sodium 50 MCG TABLET PO (08:32)
[2021-12-24] MEDS: metFORMIN HCl 1,000 MG TABLET 1000 MG PO (08:32)
[2021-12-24] MEDS: Aspirin Enteric Coated 81 MG TABLET.DR PO (08:33)
[2021-12-24] MEDS: Mineral Oil/Petrolatum,White 106 GM Tube 1 APPL TOPICAL (08:35)
[2021-12-24 09:40] LABS: Glucose, Whole Blood 176 mg/dL (60-115)
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
[2021-12-24] MEDS: Magnesium Hydrox/Alum Hydrox 30 ML ORAL.SUSP PO (17:54)
[2021-12-24 20:52] LABS: Glucose, Whole Blood 213 mg/dL (60-115)
[2021-12-24] MEDS: QUEtiapine Fumarate 300 MG TABLET 600 MG PO (20:59)
[2021-12-24] MEDS: carBAMazepine ER 200 MG TAB.ER.12H 400 MG PO (20:59)
[2021-12-24 21:00] VITALS: BP 125/67; PULSE 70; RESP 18; TEMP 36.7; O2SAT 97
[2021-12-24] MEDS: Gabapentin 300 MG CAPSULE PO (21:00)
[2021-12-24] MEDS: Atorvastatin Calcium 10 MG TABLET PO (21:00)
[2021-12-24] MEDS: Metoprolol Succinate ER 100 MG TAB.ER.24H 200 MG PO (21:00)
[2021-12-25 08:35] VITALS: BP 147/87; PULSE 58; RESP 17; TEMP 36.1; O2SAT 99
[2021-12-25] MEDS: metFORMIN HCl 1,000 MG TABLET 1000 MG PO (08:37)
[2021-12-25] MEDS: Fenofibrate 160 MG TABLET PO (08:37)
[2021-12-25] MEDS: hydroCHLOROthiazide 12.5 MG TABLET PO (08:37)
[2021-12-25] MEDS: Levothyroxine Sodium 50 MCG TABLET PO (08:37)
[2021-12-25] MEDS: Aspirin Enteric Coated 81 MG TABLET.DR PO (08:38)
[2021-12-25] MEDS: carBAMazepine ER 200 MG TAB.ER.12H PO (08:38)
[2021-12-25] MEDS: amLODIPine Besylate 10 MG TABLET PO (08:38)
[2021-12-25] MEDS: lisinopriL 40 MG TABLET PO (08:38)
[2021-12-25] MEDS: glipiZIDE 5 MG TABLET PO (08:38)
[2021-12-25] MEDS: Cholecalciferol (Vitamin D3) 25 MCG TABLET PO (08:39)
[2021-12-25 09:37] LABS: Glucose, Whole Blood 116 mg/dL (60-115)
--- NOTE | 2021-12-25 12:13 | P.PNPSI_ITS ---
Subjective Subjective Date of Service: 12/25/21 Reason For Visit: perla Interim History: calm, cooperative. smelling some cream he has in his possession, offers for MD and GIACOMO to smell. states he feels imprisoned and wants to go home. ambivalent when told he needs to stay. props his de-stockinged foot on the table and asserts his left great toe is crooked (it appears normal to GIACOMO thebrandi and this display card writer) due to a trip and fall about a week ago. record reviewed, negative xray discussed, pt appeared reassured and was advised to take NSAIDs as needed. no other requests or complaints. per staff, remains on 1:1 for inappropriate language with female staff. requiring redirection. demanding and rude at times. did not touch anyone yesterday. refused MoCA with OT. Mental Status Exam Mental Status Exam Narrative: Alert. He is overweight/ obese, adequately dressed and groomed. good eye contact, attentive. No Tics or Tremors. No abnormal involuntary movements. calm, cooperative. Non-pressured speech, spontaneous with regular rate and rhythm, normal volume and prosody. No prolonged speech latency or dysarthria. Mood is down, affect is consistent. no SI/SIB/HI/AVH expressed. Thoughts are linear in brief interaction. cognitive impairment is suspected but has not been diagnosed. Insight/ Judgment poor. Diagnostics Vital Signs (24Hr): Vital Signs - 24 hr 12/24/21 21:00 12/25/21 08:35 Temperature 98.1 F 96.9 F Pulse Rate 70 58 Respiratory Rate 18 17 Blood Pressure 125/67 147/87 H Pulse Oximetry 97 99 Oxygen Delivery Method Room Air Room Air BMI result Body Mass Index 36.0 Labs Results: 12/19/21 16:50 12/21/21 08:40 Labs: Laboratory Results - last 48 hr 12/23/21 12/24/21 12/24/21 21:11 09:37 20:46 POC Glucose 162 H 176 H 213 H 12/25/21 09:34 POC Glucose 116 H Imaging Radiology Impressions: ITS Impressions Foot X-Ray 12/21/21 13:55 IMPRESSION: No fracture seen. Medications Medications Current Medications Acetaminophen (Acetaminophen 325 Mg Tablet) 650 mg PO Q6H PRN PRN Reason: Headache/Pain Mild Scale (1-3) Al Hydroxide/Mg Hydroxide (Magnesium Hydrox/Alum Hydrox 30 Ml Oral.Susp) 30 ml PO Q6H PRN PRN Reason: Heartburn/Nausea Last Admin: 12/24/21 17:54 Dose: 30 ml Amlodipine Besylate (Amlodipine Besylate 10 Mg Tablet) 10 mg PO DAILY [facility]; Protocol Last Admin: 12/25/21 08:38 Dose: 10 mg Aspirin (Aspirin Enteric Coated 81 Mg Tablet.Dr) 81 mg PO DAILY [facility] Last Admin: 12/25/21 08:38 Dose: 81 mg Atorvastatin Calcium (Atorvastatin Calcium 10 Mg Tablet) 10 mg PO BEDTIME [facility] Last Admin: 12/24/21 21:00 Dose: 10 mg Carbamazepine (Carbamazepine Er 200 Mg Tab.Er.12h) 200 mg PO DAILY [facility] Last Admin: 12/25/21 08:38 Dose: 200 mg Carbamazepine (Carbamazepine Er 200 Mg Tab.Er.12h) 400 mg PO BEDTIME [facility] Last Admin: 12/24/21 20:59 Dose: 400 mg Fenofibrate (Fenofibrate 160 Mg Tablet) 160 mg PO DAILY [facility] Last Admin: 12/25/21 08:37 Dose: 160 mg Gabapentin (Gabapentin 300 Mg Capsule) 300 mg PO BEDTIME [facility] Last Admin: 12/24/21 21:00 Dose: 300 mg Glipizide (Glipizide 5 Mg Tablet) 5 mg PO DAILY [facility] Last Admin: 12/25/21 08:38 Dose: 5 mg Hydrochlorothiazide (Hydrochlorothiazide 12.5 Mg Tablet) 12.5 mg PO DAILY [facility]; Protocol Last Admin: 12/25/21 08:37 Dose: 12.5 mg Hydroxyzine HCl (Hydroxyzine Hcl 25 Mg Tablet) 25 mg PO Q6H PRN PRN Reason: Anxiety Last Admin: 12/22/21 21:56 Dose: 25 mg Levothyroxine Sodium (Levothyroxine Sodium 50 Mcg Tablet) 50 mcg PO DAILY@0630 [facility] Last Admin: 12/25/21 08:37 Dose: 50 mcg Lisinopril (Lisinopril 40 Mg Tablet) 40 mg PO DAILY [facility]; Protocol Last Admin: 12/25/21 08:38 Dose: 40 mg Magnesium Hydroxide (Milk Of Magnesia 30 Ml Oral.Susp) 30 ml PO DAILY PRN PRN Reason: Constipation Metformin HCl (Metformin Hcl 1,000 Mg Tablet) 1,000 mg PO DAILY [facility] Last Admin: 12/25/21 08:37 Dose: 1,000 mg Metoprolol Succinate (Metoprolol Succinate Er 100 Mg Tab.Er.24h) 200 mg PO BEDTIME [facility]; Protocol Last Admin: 12/24/21 21:00 Dose: 200 mg Multi-Ingred Cream/Lotion/Oil/Oint (Mineral Oil/Petrolatum,White 106 Gm Tube) 1 appl TOPICAL BID [facility] Last Admin: 12/25/21 10:07 Dose: Not Given Nicotine Polacrilex (Nicotine Polacrilex 2 Mg Gum) 2 mg BUCCAL Q2H PRN PRN Reason: Nicotine Cravings Quetiapine Fumarate (Quetiapine Fumarate 300 Mg Tablet) 600 mg PO BEDTIME ED Last Admin: 12/24/21 20:59 Dose: 600 mg Trazodone HCl (Trazodone Hcl 50 Mg Tablet) 50 mg PO BEDTIME PRN PRN Reason: Insomnia Last Admin: 12/22/21 21:55 Dose: 50 mg Vitamin D (Cholecalciferol (Vitamin D3) 25 Mcg Tablet) 25 mcg PO DAILY [facility] Last Admin: 12/25/21 08:39 Dose: 25 mcg Allergies Allergies Allergy/AdvReac Type Severity Reaction Status Date / Time No Known Allergies Allergy Verified 12/19/21 16:24 Assessment & Plan Assessment & Plan (1) Bipolar 1 disorder: Status: Acute Code(s): F31.9 - Bipolar disorder, unspecified Plan Wade is a 71 y.o. male who carries a dx of bipolar I disorder. He is Mozambican speaking. He presented to [facility] on 12/19/21 upon son?s request due to manic presentation x 1 week i.e. not sleeping, up all night, hyperactive, bizarre behaviors (flooded the bathroom, rearranging things in the home, talking to his family as if 30 years have passed, drawing on the medina), and disinhibition. He has been med adherent. Unclear precipitating factor. Hx of multiple psych inpatient admissions and long hx of bipolar symptomatology. 12/20: obtain MOCA from OT once perla has resolved. decreased lexapro to 15 mg HS due to relative contraindication for bipolar spectrum disorder. Obtain further collateral info. 12/21: pt Rxed tegretol 200/400 outpt, which he apparently has not been taking. watch cells counts, Na, and LFTs. some renal impairment as well. 12/22 stop lexapro. continue other medications 12/23 continue tx. 12/24: continue current mgmt. contact collateral for opinion of nearness to baseline. remains impulsive with poor boundaries, apparently having touched male peer's abd and asked him if he is . 12/25: yesterday pt made inappropriate comments to SW regarding her physical person. no touching in the past 24H. calm and cooperative. declined MoCA with OT. I spent ___25___ minutes with the patient and/or on the patient floor today, greater than?50% of which was spent counseling/coordinating care. Patient educated on: diagnosis and medication risk/benefits Reason for contiued inpatient stay Substantial Risk for: harm to self, harm to others, inability to function and rapid decompensation
[2021-12-25] MEDS: QUEtiapine Fumarate 300 MG TABLET 600 MG PO (21:33)
[2021-12-25] MEDS: Metoprolol Succinate ER 100 MG TAB.ER.24H 200 MG PO (21:33)
[2021-12-25] MEDS: carBAMazepine ER 200 MG TAB.ER.12H 400 MG PO (21:33)
[2021-12-25] MEDS: Gabapentin 300 MG CAPSULE PO (21:34)
[2021-12-25] MEDS: Atorvastatin Calcium 10 MG TABLET PO (21:34)
[2021-12-25 21:37] VITALS: BP 149/76; PULSE 64; TEMP 36.5; O2SAT 95
[2021-12-25] MEDS: Mineral Oil/Petrolatum,White 106 GM Tube 1 APPL TOPICAL (21:45)
[2021-12-25 21:48] LABS: Glucose, Whole Blood 181 mg/dL (60-115)
[2021-12-26 06:00] VITALS: BP 147/78; PULSE 62; RESP 20; TEMP 36.6; O2SAT 97
[2021-12-26] MEDS: Cholecalciferol (Vitamin D3) 25 MCG TABLET PO (09:23)
[2021-12-26] MEDS: hydroCHLOROthiazide 12.5 MG TABLET PO (09:23)
[2021-12-26] MEDS: Fenofibrate 160 MG TABLET PO (09:23)
[2021-12-26] MEDS: Aspirin Enteric Coated 81 MG TABLET.DR PO (09:23)
[2021-12-26] MEDS: amLODIPine Besylate 10 MG TABLET PO (09:23)
[2021-12-26] MEDS: glipiZIDE 5 MG TABLET PO (09:23)
[2021-12-26] MEDS: carBAMazepine ER 200 MG TAB.ER.12H PO (09:23)
[2021-12-26] MEDS: Levothyroxine Sodium 50 MCG TABLET PO (09:23)
[2021-12-26] MEDS: lisinopriL 40 MG TABLET PO (09:23)
[2021-12-26] MEDS: metFORMIN HCl 1,000 MG TABLET 1000 MG PO (09:24)
[2021-12-26 11:29] LABS: Glucose, Whole Blood 112 mg/dL (60-115)
[2021-12-26] MEDS: Mineral Oil/Petrolatum,White 106 GM Tube 1 APPL TOPICAL (11:50)
--- NOTE | 2021-12-26 13:36 | P.PNPSI_ITS ---
Subjective Subjective Date of Service: 12/26/21 Reason For Visit: perla Interim History: calm, cooperative. asking about discharge, educated re 3-day notice process. says he will think about it. was hoping for friday discharge, accuses MD of playing with his mind, saying he is sure MD told him before that he would be discharged on friday. MD tells him he will have labs drawn on friday. no other notable complaints or requests. per staff, remains on 1:1. remains sexually inappropriate, trying to get female staff alone withhim in his room with the door closed. threatened to punch 1:1 staff on eves for redirecting him from female peers. entered peer's room and refused to leave. Mental Status Exam Mental Status Exam Narrative: Alert. He is overweight/ obese, adequately dressed and groomed. good eye contact, attentive. No Tics or Tremors. No abnormal involuntary movements. calm, cooperative. Non-pressured speech, spontaneous with regular rate and rhythm, normal volume and prosody. No prolonged speech latency or dysarthria. Mood is down, affect is consistent. no SI/SIB/HI/AVH expressed. Thoughts are linear in brief interaction. cognitive impairment is suspected but has not been diagnosed. Insight/ Judgment poor. Diagnostics Vital Signs (24Hr): Vital Signs - 24 hr 12/25/21 21:37 12/26/21 06:00 Temperature 97.7 F 97.8 F Pulse Rate 64 62 Respiratory Rate 20 Blood Pressure 149/76 H 147/78 H Pulse Oximetry 95 97 Oxygen Delivery Method Room Air Room Air BMI result Body Mass Index 36.0 Labs Results: 12/19/21 16:50 12/21/21 08:40 Labs: Laboratory Results - last 48 hr 12/24/21 12/25/21 12/25/21 20:46 09:34 21:43 POC Glucose 213 H 116 H 181 H 12/26/21 11:25 POC Glucose 112 Imaging Radiology Impressions: ITS Impressions Foot X-Ray 12/21/21 13:55 IMPRESSION: No fracture seen. Medications Medications Current Medications Acetaminophen (Acetaminophen 325 Mg Tablet) 650 mg PO Q6H PRN PRN Reason: Headache/Pain Mild Scale (1-3) Al Hydroxide/Mg Hydroxide (Magnesium Hydrox/Alum Hydrox 30 Ml Oral.Susp) 30 ml PO Q6H PRN PRN Reason: Heartburn/Nausea Last Admin: 12/24/21 17:54 Dose: 30 ml Amlodipine Besylate (Amlodipine Besylate 10 Mg Tablet) 10 mg PO DAILY [facility]; Protocol Last Admin: 12/26/21 09:23 Dose: 10 mg Aspirin (Aspirin Enteric Coated 81 Mg Tablet.Dr) 81 mg PO DAILY [facility] Last Admin: 12/26/21 09:23 Dose: 81 mg Atorvastatin Calcium (Atorvastatin Calcium 10 Mg Tablet) 10 mg PO BEDTIME [facility] Last Admin: 12/25/21 21:34 Dose: 10 mg Carbamazepine (Carbamazepine Er 200 Mg Tab.Er.12h) 200 mg PO DAILY [facility] Last Admin: 12/26/21 09:23 Dose: 200 mg Carbamazepine (Carbamazepine Er 200 Mg Tab.Er.12h) 400 mg PO BEDTIME [facility] Last Admin: 12/25/21 21:33 Dose: 400 mg Fenofibrate (Fenofibrate 160 Mg Tablet) 160 mg PO DAILY [facility] Last Admin: 12/26/21 09:23 Dose: 160 mg Gabapentin (Gabapentin 300 Mg Capsule) 300 mg PO BEDTIME [facility] Last Admin: 12/25/21 21:34 Dose: 300 mg Glipizide (Glipizide 5 Mg Tablet) 5 mg PO DAILY [facility] Last Admin: 12/26/21 09:23 Dose: 5 mg Hydrochlorothiazide (Hydrochlorothiazide 12.5 Mg Tablet) 12.5 mg PO DAILY [facility]; Protocol Last Admin: 12/26/21 09:23 Dose: 12.5 mg Hydroxyzine HCl (Hydroxyzine Hcl 25 Mg Tablet) 25 mg PO Q6H PRN PRN Reason: Anxiety Last Admin: 12/22/21 21:56 Dose: 25 mg Levothyroxine Sodium (Levothyroxine Sodium 50 Mcg Tablet) 50 mcg PO DAILY@0630 [facility] Last Admin: 12/26/21 09:23 Dose: 50 mcg Lisinopril (Lisinopril 40 Mg Tablet) 40 mg PO DAILY [facility]; Protocol Last Admin: 12/26/21 09:23 Dose: 40 mg Magnesium Hydroxide (Milk Of Magnesia 30 Ml Oral.Susp) 30 ml PO DAILY PRN PRN Reason: Constipation Metformin HCl (Metformin Hcl 1,000 Mg Tablet) 1,000 mg PO DAILY [facility] Last Admin: 12/26/21 09:24 Dose: 1,000 mg Metoprolol Succinate (Metoprolol Succinate Er 100 Mg Tab.Er.24h) 200 mg PO BEDTIME ED; Protocol Last Admin: 12/25/21 21:33 Dose: 200 mg Multi-Ingred Cream/Lotion/Oil/Oint (Mineral Oil/Petrolatum,White 106 Gm Tube) 1 appl TOPICAL BID ED Last Admin: 12/26/21 11:50 Dose: 1 appl Nicotine Polacrilex (Nicotine Polacrilex 2 Mg Gum) 2 mg BUCCAL Q2H PRN PRN Reason: Nicotine Cravings Quetiapine Fumarate (Quetiapine Fumarate 300 Mg Tablet) 600 mg PO BEDTIME ED Last Admin: 12/25/21 21:33 Dose: 600 mg Trazodone HCl (Trazodone Hcl 50 Mg Tablet) 50 mg PO BEDTIME PRN PRN Reason: Insomnia Last Admin: 12/22/21 21:55 Dose: 50 mg Vitamin D (Cholecalciferol (Vitamin D3) 25 Mcg Tablet) 25 mcg PO DAILY [facility] Last Admin: 12/26/21 09:23 Dose: 25 mcg Allergies Allergies Allergy/AdvReac Type Severity Reaction Status Date / Time No Known Allergies Allergy Verified 12/19/21 16:24 Assessment & Plan Assessment & Plan (1) Bipolar 1 disorder: Status: Acute Code(s): F31.9 - Bipolar disorder, unspecified Plan Wade is a 71 y.o. male who carries a dx of bipolar I disorder. He is Syrian speaking. He presented to [facility] on 12/19/21 upon son?s request due to manic presentation x 1 week i.e. not sleeping, up all night, hyperactive, bizarre behaviors (flooded the bathroom, rearranging things in the home, talking to his family as if 30 years have passed, drawing on the [place]), and disinhibition. He has been med adherent. Unclear precipitating factor. Hx of multiple psych inpatient admissions and long hx of bipolar symptomatology. 12/20: obtain MOCA from OT once perla has resolved. decreased lexapro to 15 mg HS due to relative contraindication for bipolar spectrum disorder. Obtain further collateral info. 12/21: pt Rxed tegretol 200/400 outpt, which he apparently has not been taking. watch cells counts, Na, and LFTs. some renal impairment as well. 12/22 stop lexapro. continue other medications 12/23 continue tx. 12/24: continue current mgmt. contact collateral for opinion of nearness to baseline. remains impulsive with poor boundaries, apparently having touched male peer's abd and asked him if he is . 12/25: yesterday pt made inappropriate comments to SW regarding her physical person. no touching in the past 24H. calm and cooperative. declined MoCA with OT. 12/26: stable, hypersexual approach to females continues. med-compliant. threatened to punch male staff who was on 1:1 with him for remaining within [address] of him. check labs friday. I spent ___25___ minutes with the patient and/or on the patient floor today, greater than?50% of which was spent counseling/coordinating care. Reason for contiued inpatient stay Substantial Risk for: harm to self, harm to others, inability to function and rapid decompensation
[2021-12-26] MEDS: carBAMazepine ER 200 MG TAB.ER.12H 400 MG PO (21:16)
[2021-12-26] MEDS: Metoprolol Succinate ER 100 MG TAB.ER.24H 200 MG PO (21:16)
[2021-12-26] MEDS: QUEtiapine Fumarate 300 MG TABLET 600 MG PO (21:16)
[2021-12-26] MEDS: Atorvastatin Calcium 10 MG TABLET PO (21:16)
[2021-12-26] MEDS: traZODone HCL 50 MG TABLET PO (21:16)
[2021-12-26] MEDS: Gabapentin 300 MG CAPSULE PO (21:16)
[2021-12-26 21:19] VITALS: BP 183/88; PULSE 72; TEMP 36.6; O2SAT 98
[2021-12-26 21:56] LABS: Glucose, Whole Blood 138 mg/dL (60-115)
--- NOTE | 2021-12-26 22:55 | PC.NURSE ---
PT ASKED THIS PEAR PICKER IF THEY HAD SEX LATELY AND IF THEY WOULD LIKE TO HAVE SEX. IF
--- NOTE | 2021-12-26 22:59 | PC.NURSE ---
PT ASKED THIS VISUAL AID EXPERT IF THEY HAVE HAD SEX RECENTLY AND ASKED IF THEY WANTED TO HAVE SEX. THIS VISUAL AID EXPERT REDIRECTED PT AND TOLD THIS VISUAL AID EXPERT THAT IT WAS INAPPROPRIATE FOR HIM TO ASK STAFF THAT QUESTION. PT TOLD THIS VISUAL AID EXPERT THAT ALL WOMEN ARE STUPID AND THAT IT WAS STUPID THAT THIS VISUAL AID EXPERT TOLD HIM THAT THE QUESTIONS THAT HE ASKED WERE PERSONAL.
[2021-12-27 08:50] VITALS: BP 166/82; PULSE 64; RESP 20; TEMP 36.5; O2SAT 98
[2021-12-27 08:53] LABS: Glucose, Whole Blood 129 mg/dL (60-115)
[2021-12-27] MEDS: Levothyroxine Sodium 50 MCG TABLET PO (09:03)
[2021-12-27] MEDS: metFORMIN HCl 1,000 MG TABLET 1000 MG PO (09:03)
[2021-12-27] MEDS: hydroCHLOROthiazide 12.5 MG TABLET PO (09:03)
[2021-12-27] MEDS: amLODIPine Besylate 10 MG TABLET PO (09:04)
[2021-12-27] MEDS: glipiZIDE 5 MG TABLET PO (09:04)
[2021-12-27] MEDS: Aspirin Enteric Coated 81 MG TABLET.DR PO (09:04)
[2021-12-27] MEDS: carBAMazepine ER 200 MG TAB.ER.12H PO (09:04)
[2021-12-27] MEDS: lisinopriL 40 MG TABLET PO (09:05)
[2021-12-27] MEDS: Fenofibrate 160 MG TABLET PO (09:05)
[2021-12-27] MEDS: Cholecalciferol (Vitamin D3) 25 MCG TABLET PO (09:05)
[2021-12-27 10:30] VITALS: BMI 41.1
[2021-12-27] MEDS: Mineral Oil/Petrolatum,White 106 GM Tube 1 APPL TOPICAL ×2 (11:54→21:52)
--- NOTE | 2021-12-27 15:35 | P.PNPSI_ITS ---
Subjective Subjective Date of Service: 12/27/21 Reason For Visit: perla Interim History: calm, cooperative. no overt change in presentation. asks MD about his jew and ethnic background. MD does observe pt commenting inappropriately on female staff's physical appearance (something along the lines of, your legs, oh what beautiful legs ). per staff, pleasant. mostly keeping to himself. wondering why he has 1:1 staffing. feeling spied on. some redirection required regarding approaching women. sleeps naked, exposed himself to roommate and female RN who was present to care for his roommate. Mental Status Exam Mental Status Exam Narrative: Alert. He is overweight/ obese, adequately dressed and groomed. good eye contact, attentive. No Tics or Tremors. No abnormal involuntary movements. calm, cooperative. Non-pressured speech, spontaneous with regular rate and rhythm, normal volume and prosody. No prolonged speech latency or dysarthria. Mood is normally bad, affect is inconsistent, normo-intense, flexible and full range. no SI/SIB/HI/AVH expressed. Thoughts are linear in brief interaction. cognitive impairment is suspected but has not been diagnosed. Insight/ Judgment poor. Diagnostics Vital Signs (24Hr): Vital Signs - 24 hr 12/26/21 21:19 12/27/21 08:50 Temperature 97.8 F 97.7 F Pulse Rate 72 64 Respiratory Rate 20 Blood Pressure 183/88 H 166/82 H Pulse Oximetry 98 98 Oxygen Delivery Method Room Air Room Air BMI result Body Mass Index 41.1 Labs Results: 12/19/21 16:50 12/21/21 08:40 Labs: Laboratory Results - last 48 hr 12/25/21 12/26/21 12/26/21 21:43 11:25 21:02 POC Glucose 181 H 112 138 H 12/27/21 08:48 POC Glucose 129 H Imaging Radiology Impressions: ITS Impressions Foot X-Ray 12/21/21 13:55 IMPRESSION: No fracture seen. Medications Medications Current Medications Acetaminophen (Acetaminophen 325 Mg Tablet) 650 mg PO Q6H PRN PRN Reason: Headache/Pain Mild Scale (1-3) Al Hydroxide/Mg Hydroxide (Magnesium Hydrox/Alum Hydrox 30 Ml Oral.Susp) 30 ml PO Q6H PRN PRN Reason: Heartburn/Nausea Last Admin: 12/24/21 17:54 Dose: 30 ml Amlodipine Besylate (Amlodipine Besylate 10 Mg Tablet) 10 mg PO DAILY [facility]; Protocol Last Admin: 12/27/21 09:04 Dose: 10 mg Aspirin (Aspirin Enteric Coated 81 Mg Tablet.Dr) 81 mg PO DAILY [facility] Last Admin: 12/27/21 09:04 Dose: 81 mg Atorvastatin Calcium (Atorvastatin Calcium 10 Mg Tablet) 10 mg PO BEDTIME ED Last Admin: 12/26/21 21:16 Dose: 10 mg Carbamazepine (Carbamazepine Er 200 Mg Tab.Er.12h) 200 mg PO DAILY [facility] Last Admin: 12/27/21 09:04 Dose: 200 mg Carbamazepine (Carbamazepine Er 200 Mg Tab.Er.12h) 400 mg PO BEDTIME ED Last Admin: 12/26/21 21:16 Dose: 400 mg Fenofibrate (Fenofibrate 160 Mg Tablet) 160 mg PO DAILY [facility] Last Admin: 12/27/21 09:05 Dose: 160 mg Gabapentin (Gabapentin 300 Mg Capsule) 300 mg PO BEDTIME ED Last Admin: 12/26/21 21:16 Dose: 300 mg Glipizide (Glipizide 5 Mg Tablet) 5 mg PO DAILY [facility] Last Admin: 12/27/21 09:04 Dose: 5 mg Hydrochlorothiazide (Hydrochlorothiazide 25 Mg Tablet) 25 mg PO DAILY [facility]; Protocol Hydroxyzine HCl (Hydroxyzine Hcl 25 Mg Tablet) 25 mg PO Q6H PRN PRN Reason: Anxiety Last Admin: 12/22/21 21:56 Dose: 25 mg Levothyroxine Sodium (Levothyroxine Sodium 50 Mcg Tablet) 50 mcg PO DAILY@0630 [facility] Last Admin: 12/27/21 09:03 Dose: 50 mcg Lisinopril (Lisinopril 40 Mg Tablet) 40 mg PO DAILY [facility]; Protocol Last Admin: 12/27/21 09:05 Dose: 40 mg Magnesium Hydroxide (Milk Of Magnesia 30 Ml Oral.Susp) 30 ml PO DAILY PRN PRN Reason: Constipation Metformin HCl (Metformin Hcl 1,000 Mg Tablet) 1,000 mg PO DAILY [facility] Last Admin: 12/27/21 09:03 Dose: 1,000 mg Metoprolol Succinate (Metoprolol Succinate Er 100 Mg Tab.Er.24h) 200 mg PO BEDTIME [facility]; Protocol Last Admin: 12/26/21 21:16 Dose: 200 mg Multi-Ingred Cream/Lotion/Oil/Oint (Mineral Oil/Petrolatum,White 106 Gm Tube) 1 appl TOPICAL BID [facility] Last Admin: 12/27/21 11:54 Dose: 1 appl Nicotine Polacrilex (Nicotine Polacrilex 2 Mg Gum) 2 mg BUCCAL Q2H PRN PRN Reason: Nicotine Cravings Quetiapine Fumarate (Quetiapine Fumarate 300 Mg Tablet) 600 mg PO BEDTIME ED Last Admin: 12/26/21 21:16 Dose: 600 mg Trazodone HCl (Trazodone Hcl 50 Mg Tablet) 50 mg PO BEDTIME PRN PRN Reason: Insomnia Last Admin: 12/26/21 21:16 Dose: 50 mg Vitamin D (Cholecalciferol (Vitamin D3) 25 Mcg Tablet) 25 mcg PO DAILY [facility] Last Admin: 12/27/21 09:05 Dose: 25 mcg Allergies Allergies Allergy/AdvReac Type Severity Reaction Status Date / Time No Known Allergies Allergy Verified 12/19/21 16:24 Assessment & Plan Assessment & Plan (1) Bipolar 1 disorder: Status: Acute Code(s): F31.9 - Bipolar disorder, unspecified Plan Wade is a 71 y.o. male who carries a dx of bipolar I disorder. He is Citizen [place] speaking. [place] [facility] [place] upon son?s request due to manic presentation x 1 week i.e. not sleeping, up all night, hyperactive, bizarre behaviors (flooded the bathroom, rearranging things in the home, talking to his family as if 30 years have passed, drawing on the [place]), and disinhibition. He has been med adherent. Unclear precipitating factor. Hx of multiple psych inpatient admissions and long hx of bipolar symptomatology. 12/20: obtain MOCA from OT once perla has resolved. decreased lexapro to 15 mg HS due to relative contraindication for bipolar spectrum disorder. Obtain further collateral info. 12/21: pt Rxed tegretol 200/400 outpt, which he apparently has not been taking. watch cells counts, Na, and LFTs. some renal impairment as well. 12/22 stop lexapro. continue other medications 12/23 continue tx. 12/24: continue current mgmt. contact collateral for opinion of nearness to baseline. remains impulsive with poor boundaries, apparently having touched male peer's abd and asked him if he is . 12/25: yesterday pt made inappropriate comments to SW regarding her physical person. no touching in the past 24H. calm and cooperative. declined MoCA with OT. 12/26: stable, hypersexual approach to females continues. med-compliant. threatened to punch male staff who was on 1:1 with him for remaining within 1 meter of him. check labs friday. 12/27: inappropriate comments to female staff re her body, exposed himself to roommate and female RN last night. single room with 1:1 when outside of room, otherwise continue current mgmt. check tegretol level and associated labs tomorrow. I spent ___25___ minutes with the patient and/or on the patient floor today, greater than?50% of which was spent counseling/coordinating care. Reason for contiued inpatient stay Substantial Risk for: harm to self, harm to others and rapid decompensation
[2021-12-27 21:37] VITALS: BP 138/72; PULSE 76; RESP 18; TEMP 36.6; O2SAT 93
[2021-12-27 21:38] LABS: Glucose, Whole Blood 154 mg/dL (60-115)
[2021-12-27] MEDS: traZODone HCL 50 MG TABLET PO (21:41)
[2021-12-27] MEDS: carBAMazepine ER 200 MG TAB.ER.12H 400 MG PO (21:41)
[2021-12-27] MEDS: Gabapentin 300 MG CAPSULE PO (21:41)
[2021-12-27] MEDS: Atorvastatin Calcium 10 MG TABLET PO (21:42)
[2021-12-27] MEDS: Metoprolol Succinate ER 100 MG TAB.ER.24H 200 MG PO (21:42)
[2021-12-27] MEDS: QUEtiapine Fumarate 300 MG TABLET 600 MG PO (21:42)
[2021-12-28] MEDS: Cholecalciferol (Vitamin D3) 25 MCG TABLET PO (08:27)
[2021-12-28] MEDS: Levothyroxine Sodium 50 MCG TABLET PO (08:27)
[2021-12-28] MEDS: Aspirin Enteric Coated 81 MG TABLET.DR PO (08:27)
[2021-12-28] MEDS: hydroCHLOROthiazide 25 MG TABLET PO (08:27)
[2021-12-28] MEDS: amLODIPine Besylate 10 MG TABLET PO (08:28)
[2021-12-28] MEDS: Fenofibrate 160 MG TABLET PO (08:28)
[2021-12-28] MEDS: carBAMazepine ER 200 MG TAB.ER.12H PO ×2 (08:28→13:38)
[2021-12-28] MEDS: glipiZIDE 5 MG TABLET PO (08:29)
[2021-12-28] MEDS: metFORMIN HCl 1,000 MG TABLET 1000 MG PO (08:29)
[2021-12-28] MEDS: lisinopriL 40 MG TABLET PO (08:29)
[2021-12-28 08:44] LABS: Glucose, Whole Blood 128 mg/dL (60-115)
[2021-12-28 09:00] VITALS: BP 156/86; PULSE 60; RESP 18; TEMP 36.3; O2SAT 96
[2021-12-28 09:04] LABS: MANUAL DIFF FLAG NO
[2021-12-28 09:06] LABS: Basophils Percent Auto 0.6 % (0-2); Eosinophils Absolute Auto 0.3 X10*3/uL (0.0-0.4); Eosinophils Percent Auto 4.1 % (0-4); Hematocrit 40.8 % (42.0-52.0); Hemoglobin 14.1 g/dl (14.0-18.0); Imm Gran Abs Auto 0.02 X10*3/uL (0.00-0.03); Imm Gran Pct Auto 0.3 % (0.0-0.4); Lymphocytes Absolute Auto 3.1 X10*3/uL (1.2-4.9); Lymphocytes Percent Auto 49.4 % (20-40); Mean Corpuscular HGB Conc 34.6 g/dl (31.0-36.0); Mean Corpuscular Hemoglobin 32.1 pg (27.0-33.0); Mean Corpuscular Volume 92.9 fL (80.0-98.0); Mean Platelet Volume 10.5 fL (9.4-12.4); Monocytes Absolute Auto 0.6 X10*3/uL (0.1-1.2); Monocytes Percent Auto 9.2 % (2-11); Neutrophils Absolute Auto 2.3 x10*3/uL (2.0-8.3); Neutrophils Percent Auto 36.4 % (45-73); Platelet Count 235 X10*3/uL (160-400); Red Blood Count 4.39 X10*6/uL (4.60-5.80); Red Cell Distribution Width 12.4 % (11.0-16.0); White Blood Count 6.3 X10*3/uL (4.8-10.8)
[2021-12-28 10:14] LABS: Alanine Aminotransferase 51 U/L (0-40); Albumin Level 4.5 g/dL (3.5-5.0); Alkaline Phosphatase 30 U/L (39-117); Anion Gap 16 (12-20); Aspartate Amino Transferase 44 U/L (5-37); Bilirubin Direct 0.2 mg/dL (0.0-0.5); Bilirubin Total 0.5 mg/dL (0.0-1.0); Blood Urea Nitrogen 23 mg/dL (9-16); Calcium 9.2 mg/dL (8.4-10.2); Carbon Dioxide 26 mmol/L (22-29); Chloride 102 mmol/L (96-108); Creatinine Clr Calc Pharmacy 59.4; Estimated Glomerular Filt Rate 48; Glucose Random 129 mg/dL (60-115); Potassium 4.5 mmol/L (3.3-5.1); Sodium 139 mmol/L (135-145); Total Protein 7.7 g/dL (6.5-8.0)
[2021-12-28 10:55] LABS: Carbamazepine Tegretol 7.7 mcg/mL (5.0-12.0)
--- NOTE | 2021-12-28 15:43 | P.PNPSI_ITS ---
Subjective Subjective Date of Service: 12/28/21 Reason For Visit: perla Interim History: greets pt in [place] as pt ambulates past. he replies, fuck you, to , explaining MD promised to discharge him today (inaccurate) but didn't and is a liar. pt met with GIACOMO and later and repeated his accusation but broadened it to a class-wide trait: all doctors are liars. lab results reviewed, intent to increase tegretol dosing stated. pt was ambivalent. per staff, not attending groups. irritable re 1:1. sleeping, eating well. family visits. VS OK. slept 10 p to 8 am. Mental Status Exam Mental Status Exam Narrative: Alert. He is overweight/ obese, adequately dressed and groomed. good eye contact, attentive. No Tics or Tremors. No abnormal involuntary movements. calm, cooperative. Non-pressured speech, spontaneous with regular rate and rhythm, normal volume and prosody. No prolonged speech latency or dysarthria. affect is flexible, normo-intense, insoucient, and full range. no SI/SIB/HI/AVH expressed. Thoughts are linear in brief interaction. cognitive impairment is suspected but has not been diagnosed. Insight/ Judgment poor. Diagnostics Vital Signs (24Hr): Vital Signs - 24 hr 12/27/21 21:37 12/28/21 09:00 Temperature 97.9 F 97.3 F Pulse Rate 76 60 Respiratory Rate 18 18 Blood Pressure 138/72 156/86 H Pulse Oximetry 93 96 Oxygen Delivery Method Room Air Room Air BMI result Body Mass Index 41.1 Labs Results: 12/28/21 08:44 12/28/21 08:44 Labs: Laboratory Results - last 48 hr 12/26/21 12/27/21 12/27/21 21:02 08:48 21:31 WBC RBC Hgb Hct MCV MCH MCHC RDW Plt Count MPV Immature Gran % (Auto) Neut % (Auto) Lymph % (Auto) Barron % (Auto) Eos % (Auto) Baso % (Auto) Lymph # (Auto) Barron # (Auto) Eos # (Auto) Baso # (Auto) Abs Immat Gran (auto) Absolute Neuts (auto) Absolute Nucleated RBC Nucleated RBC % (auto) Sodium Potassium Chloride Carbon Dioxide Anion Gap BUN Creatinine Estim Creat Clear Calc Estimated GFR POC Glucose 138 H 129 H 154 H Random Glucose Calcium Total Bilirubin Direct Bilirubin AST ALT Alkaline Phosphatase Total Protein Albumin Carbamazepine 12/28/21 12/28/21 12/28/21 08:38 08:44 08:44 WBC 6.3 RBC 4.39 L Hgb 14.1 Hct 40.8 L MCV 92.9 MCH 32.1 MCHC 34.6 RDW 12.4 Plt Count 235 D MPV 10.5 Immature Gran % (Auto) 0.3 Neut % (Auto) 36.4 L Lymph % (Auto) 49.4 H Barron % (Auto) 9.2 Eos % (Auto) 4.1 H Baso % (Auto) 0.6 Lymph # (Auto) 3.1 Barron # (Auto) 0.6 Eos # (Auto) 0.3 Baso # (Auto) 0.0 Abs Immat Gran (auto) 0.02 Absolute Neuts (auto) 2.3 Absolute Nucleated RBC 0.000 Nucleated RBC % (auto) 0.0 Sodium 139 Potassium 4.5 Chloride 102 Carbon Dioxide 26 Anion Gap 16 BUN 23 H Creatinine 1.45 H Estim Creat Clear Calc 59.4 Estimated GFR 48 POC Glucose 128 H Random Glucose 129 H D Calcium 9.2 Total Bilirubin 0.5 Direct Bilirubin 0.2 AST 44 H ALT 51 H Alkaline Phosphatase 30 L Total Protein 7.7 Albumin 4.5 Carbamazepine 7.7 Imaging Radiology Impressions: ITS Impressions Foot X-Ray 12/21/21 13:55 IMPRESSION: No fracture seen. Medications Medications Current Medications Acetaminophen (Acetaminophen 325 Mg Tablet) 650 mg PO Q6H PRN PRN Reason: Headache/Pain Mild Scale (1-3) Al Hydroxide/Mg Hydroxide (Magnesium Hydrox/Alum Hydrox 30 Ml Oral.Susp) 30 ml PO Q6H PRN PRN Reason: Heartburn/Nausea Last Admin: 12/24/21 17:54 Dose: 30 ml Amlodipine Besylate (Amlodipine Besylate 10 Mg Tablet) 10 mg PO DAILY [facility]; Protocol Last Admin: 12/28/21 08:28 Dose: 10 mg Aspirin (Aspirin Enteric Coated 81 Mg Tablet.Dr) 81 mg PO DAILY [facility] Last Admin: 12/28/21 08:27 Dose: 81 mg Atorvastatin Calcium (Atorvastatin Calcium 10 Mg Tablet) 10 mg PO BEDTIME [facility] Last Admin: 12/27/21 21:42 Dose: 10 mg Carbamazepine (Carbamazepine Er 200 Mg Tab.Er.12h) 400 mg PO BID [facility] Fenofibrate (Fenofibrate 160 Mg Tablet) 160 mg PO DAILY [facility] Last Admin: 12/28/21 08:28 Dose: 160 mg Gabapentin (Gabapentin 300 Mg Capsule) 300 mg PO BEDTIME ED Last Admin: 12/27/21 21:41 Dose: 300 mg Glipizide (Glipizide 5 Mg Tablet) 5 mg PO DAILY [facility] Last Admin: 12/28/21 08:29 Dose: 5 mg Hydrochlorothiazide (Hydrochlorothiazide 25 Mg Tablet) 25 mg PO DAILY [facility]; Protocol Last Admin: 12/28/21 08:27 Dose: 25 mg Hydroxyzine HCl (Hydroxyzine Hcl 25 Mg Tablet) 25 mg PO Q6H PRN PRN Reason: Anxiety Last Admin: 12/22/21 21:56 Dose: 25 mg Levothyroxine Sodium (Levothyroxine Sodium 50 Mcg Tablet) 50 mcg PO DAILY@0630 [facility] Last Admin: 12/28/21 08:27 Dose: 50 mcg Lisinopril (Lisinopril 40 Mg Tablet) 40 mg PO DAILY [facility]; Protocol Last Admin: 12/28/21 08:29 Dose: 40 mg Magnesium Hydroxide (Milk Of Magnesia 30 Ml Oral.Susp) 30 ml PO DAILY PRN PRN Reason: Constipation Metformin HCl (Metformin Hcl 1,000 Mg Tablet) 1,000 mg PO DAILY [facility] Last Admin: 12/28/21 08:29 Dose: 1,000 mg Metoprolol Succinate (Metoprolol Succinate Er 100 Mg Tab.Er.24h) 200 mg PO BEDTIME [facility]; Protocol Last Admin: 12/27/21 21:42 Dose: 200 mg Multi-Ingred Cream/Lotion/Oil/Oint (Mineral Oil/Petrolatum,White 106 Gm Tube) 1 appl TOPICAL BID [facility] Last Admin: 12/28/21 12:35 Dose: Not Given Nicotine Polacrilex (Nicotine Polacrilex 2 Mg Gum) 2 mg BUCCAL Q2H PRN PRN Reason: Nicotine Cravings Quetiapine Fumarate (Quetiapine Fumarate 300 Mg Tablet) 600 mg PO BEDTIME [facility] Last Admin: 12/27/21 21:42 Dose: 600 mg Trazodone HCl (Trazodone Hcl 50 Mg Tablet) 50 mg PO BEDTIME PRN PRN Reason: Insomnia Last Admin: 12/27/21 21:41 Dose: 50 mg Vitamin D (Cholecalciferol (Vitamin D3) 25 Mcg Tablet) 25 mcg PO DAILY ED Last Admin: 12/28/21 08:27 Dose: 25 mcg Allergies Allergies Allergy/AdvReac Type Severity Reaction Status Date / Time No Known Allergies Allergy Verified 12/19/21 16:24 Assessment & Plan Assessment & Plan (1) Bipolar 1 disorder: Status: Acute Code(s): F31.9 - Bipolar disorder, unspecified Plan Wade is a 71 y.o. male who carries a dx of bipolar I disorder. He is [place] speaking. [place] [facility] [place] son?s request due to manic presentation x 1 week i.e. not sleeping, up all night, hyperactive, bizarre behaviors (flooded the bathroom, rearranging things in the home, talking to his family as if 30 years have passed, drawing on the [place]), and disinhibition. He has been med adherent. Unclear precipitating factor. Hx of multiple psych inpatient admissions and long hx of bipolar symptomatology. 12/20: obtain MOCA from OT once perla has resolved. decreased lexapro to 15 mg HS due to relative contraindication for bipolar spectrum disorder. Obtain further collateral info. 12/21: pt Rxed tegretol 200/400 outpt, which he apparently has not been taking. watch cells counts, Na, and LFTs. some renal impairment as well. 12/22 stop lexapro. continue other medications 12/23 continue tx. 12/24: continue current mgmt. contact collateral for opinion of nearness to baseline. remains impulsive with poor boundaries, apparently having touched male peer's abd and asked him if he is . 12/25: yesterday pt made inappropriate comments to SW regarding her physical person. no touching in the past 24H. calm and cooperative. declined MoCA with OT. 12/26: stable, hypersexual approach to females continues. med-compliant. threatened to punch male staff who was on 1:1 with him for remaining within 1 meter of him. check labs friday. 12/27: inappropriate comments to female staff re her body, exposed himself to roommate and female RN last night. single room with 1:1 when outside of room, otherwise continue current mgmt. check tegretol level and associated labs tomorrow. 12/28: labs trending improved from admission labs, tegretol level 7+. increase tegretol to 400 BID. inappropriate remarks to females regarding the attractiveness of their bodies continue. I spent ___35___ minutes with the patient and/or on the patient floor today, greater than?50% of which was spent counseling/coordinating care. Reason for contiued inpatient stay Substantial Risk for: harm to self, inability to function and rapid decompensation
[2021-12-28 20:54] VITALS: BP 154/77; PULSE 70; TEMP 36.6; O2SAT 98
[2021-12-28 20:55] LABS: Glucose, Whole Blood 210 mg/dL (60-115)
[2021-12-28] MEDS: Metoprolol Succinate ER 100 MG TAB.ER.24H 200 MG PO (20:58)
[2021-12-28] MEDS: Gabapentin 300 MG CAPSULE PO (20:58)
[2021-12-28] MEDS: QUEtiapine Fumarate 300 MG TABLET 600 MG PO (20:58)
[2021-12-28] MEDS: carBAMazepine ER 200 MG TAB.ER.12H 400 MG PO (20:59)
[2021-12-28] MEDS: traZODone HCL 50 MG TABLET PO (20:59)
[2021-12-28] MEDS: Mineral Oil/Petrolatum,White 106 GM Tube 1 APPL TOPICAL (21:02)
[2021-12-28] MEDS: Atorvastatin Calcium 10 MG TABLET PO (22:35)
[2021-12-29 09:14] LABS: Glucose, Whole Blood 187 mg/dL (60-115)
[2021-12-29 09:27] VITALS: BP 163/79; PULSE 66; RESP 17; TEMP 36.2; O2SAT 99
[2021-12-29] MEDS: lisinopriL 40 MG TABLET PO (09:29)
[2021-12-29] MEDS: glipiZIDE 5 MG TABLET PO (09:29)
[2021-12-29] MEDS: hydroCHLOROthiazide 25 MG TABLET PO (09:29)
[2021-12-29] MEDS: carBAMazepine ER 200 MG TAB.ER.12H 400 MG PO ×2 (09:29→21:04)
[2021-12-29] MEDS: metFORMIN HCl 1,000 MG TABLET 1000 MG PO (09:30)
[2021-12-29] MEDS: Cholecalciferol (Vitamin D3) 25 MCG TABLET PO (09:30)
[2021-12-29] MEDS: Fenofibrate 160 MG TABLET PO (09:30)
[2021-12-29] MEDS: amLODIPine Besylate 10 MG TABLET PO (09:30)
[2021-12-29] MEDS: Levothyroxine Sodium 50 MCG TABLET PO (09:31)
[2021-12-29] MEDS: Aspirin Enteric Coated 81 MG TABLET.DR PO (09:31)
--- NOTE | 2021-12-29 10:26 | HO.PSYCHPN ---
Subjective Subjective Date of Service: 12/29/21 Reason For Visit: perla Interim History: Pt presenting angry, irritable. Making racist comments. isolative; no insight. denies SI or HI . not attending groups. irritable re 1:1. sleeping well , eating well. family visits. VS OK. slept through the night Medication Compliance: Yes Side effects from medications: No Attending Groups: No Review of Systems Acute medical concerns: No Medical Review of Systems: unchanged Review of Systems Review of Systems CVS: No c/o chest pain, palpitations, no SOB ORTHOTIST PROSTHETIST: No c/o dizziness, headache GI: No c/o Nausea, Vomiting, diarrhea, constipation or heartburn Yes all other systems are reviewed and are negative Mental Status Exam Mental Status Exam Narrative: Alert. He is overweight/ obese, adequately dressed and groomed. good eye contact, attentive. No Tics or Tremors. No abnormal involuntary movements. calm, cooperative. Non-pressured speech, spontaneous with regular rate and rhythm, normal volume and prosody. No prolonged speech latency or dysarthria. affect is flexible, normo-intense, insoucient, and full range. no SI/SIB/HI/AVH expressed. Thoughts are linear in brief interaction. cognitive impairment is suspected but has not been diagnosed. Insight/ Judgment poor. Diagnostics Vital Signs (24Hr): Vital Signs - 24 hr 12/28/21 20:54 12/29/21 09:27 Temperature 97.9 F 97.2 F Pulse Rate 70 66 Respiratory Rate 17 Blood Pressure 154/77 H 163/79 H Pulse Oximetry 98 99 Oxygen Delivery Method Room Air Room Air BMI result Body Mass Index 41.1 Labs Results: 12/28/21 08:44 12/28/21 08:44 Labs: Laboratory Results - last 48 hr 12/27/21 12/28/21 12/28/21 21:31 08:38 08:44 WBC 6.3 RBC 4.39 L Hgb 14.1 Hct 40.8 L MCV 92.9 MCH 32.1 MCHC 34.6 RDW 12.4 Plt Count 235 D MPV 10.5 Immature Gran % (Auto) 0.3 Neut % (Auto) 36.4 L Lymph % (Auto) 49.4 H [place] % (Auto) 9.2 Eos % (Auto) 4.1 H Baso % (Auto) 0.6 Lymph # (Auto) 3.1 [place] # (Auto) 0.6 Eos # (Auto) 0.3 Baso # (Auto) 0.0 Abs Immat Gran (auto) 0.02 Absolute Neuts (auto) 2.3 Absolute Nucleated RBC 0.000 Nucleated RBC % (auto) 0.0 Sodium Potassium Chloride Carbon Dioxide Anion Gap BUN Creatinine Estim Creat Clear Calc Estimated GFR POC Glucose 154 H 128 H Random Glucose Calcium Total Bilirubin Direct Bilirubin AST ALT Alkaline Phosphatase Total Protein Albumin Carbamazepine 12/28/21 12/28/21 12/29/21 08:44 20:48 09:10 WBC RBC Hgb Hct MCV MCH MCHC RDW Plt Count MPV Immature Gran % (Auto) Neut % (Auto) Lymph % (Auto) [place] % (Auto) Eos % (Auto) Baso % (Auto) Lymph # (Auto) [place] # (Auto) Eos # (Auto) Baso # (Auto) Abs Immat Gran (auto) Absolute Neuts (auto) Absolute Nucleated RBC Nucleated RBC % (auto) Sodium 139 Potassium 4.5 Chloride 102 Carbon Dioxide 26 Anion Gap 16 BUN 23 H Creatinine 1.45 H Estim Creat Clear Calc 59.4 Estimated GFR 48 POC Glucose 210 H 187 H Random Glucose 129 H D Calcium 9.2 Total Bilirubin 0.5 Direct Bilirubin 0.2 AST 44 H ALT 51 H Alkaline Phosphatase 30 L Total Protein 7.7 Albumin 4.5 Carbamazepine 7.7 Imaging Radiology Impressions: ITS Impressions Foot X-Ray 12/21/21 13:55 IMPRESSION: No fracture seen. Medications Medications Current Medications Acetaminophen (Acetaminophen 325 Mg Tablet) 650 mg PO Q6H PRN PRN Reason: Headache/Pain Mild Scale (1-3) Al Hydroxide/Mg Hydroxide (Magnesium Hydrox/Alum Hydrox 30 Ml Oral.Susp) 30 ml PO Q6H PRN PRN Reason: Heartburn/Nausea Last Admin: 12/24/21 17:54 Dose: 30 ml Amlodipine Besylate (Amlodipine Besylate 10 Mg Tablet) 10 mg PO DAILY [facility]; Protocol Last Admin: 12/29/21 09:30 Dose: 10 mg Aspirin (Aspirin Enteric Coated 81 Mg Tablet.) 81 mg PO DAILY [facility] Last Admin: 12/29/21 09:31 Dose: 81 mg Atorvastatin Calcium (Atorvastatin Calcium 10 Mg Tablet) 10 mg PO BEDTIME [facility] Last Admin: 12/28/21 22:35 Dose: 10 mg Carbamazepine (Carbamazepine Er 200 Mg Tab.Er.12h) 400 mg PO BID [facility] Last Admin: 12/29/21 09:29 Dose: 400 mg Fenofibrate (Fenofibrate 160 Mg Tablet) 160 mg PO DAILY [facility] Last Admin: 12/29/21 09:30 Dose: 160 mg Gabapentin (Gabapentin 300 Mg Capsule) 300 mg PO BEDTIME [facility] Last Admin: 12/28/21 20:58 Dose: 300 mg Glipizide (Glipizide 5 Mg Tablet) 5 mg PO DAILY [facility] Last Admin: 12/29/21 09:29 Dose: 5 mg Hydrochlorothiazide (Hydrochlorothiazide 25 Mg Tablet) 25 mg PO DAILY [facility]; Protocol Last Admin: 12/29/21 09:29 Dose: 25 mg Hydroxyzine HCl (Hydroxyzine Hcl 25 Mg Tablet) 25 mg PO Q6H PRN PRN Reason: Anxiety Last Admin: 12/22/21 21:56 Dose: 25 mg Levothyroxine Sodium (Levothyroxine Sodium 50 Mcg Tablet) 50 mcg PO DAILY@0630 [facility] Last Admin: 12/29/21 09:31 Dose: 50 mcg Lisinopril (Lisinopril 40 Mg Tablet) 40 mg PO DAILY [facility]; Protocol Last Admin: 12/29/21 09:29 Dose: 40 mg Magnesium Hydroxide (Milk Of Magnesia 30 Ml Oral.Susp) 30 ml PO DAILY PRN PRN Reason: Constipation Metformin HCl (Metformin Hcl 1,000 Mg Tablet) 1,000 mg PO DAILY [facility] Last Admin: 12/29/21 09:30 Dose: 1,000 mg Metoprolol Succinate (Metoprolol Succinate Er 100 Mg Tab.Er.24h) 200 mg PO BEDTIME [facility]; Protocol Last Admin: 12/28/21 20:58 Dose: 200 mg Multi-Ingred Cream/Lotion/Oil/Oint (Mineral Oil/Petrolatum,White 106 Gm Tube) 1 appl TOPICAL BID [facility] Last Admin: 12/29/21 09:32 Dose: Not Given Nicotine Polacrilex (Nicotine Polacrilex 2 Mg Gum) 2 mg BUCCAL Q2H PRN PRN Reason: Nicotine Cravings Quetiapine Fumarate (Quetiapine Fumarate 300 Mg Tablet) 600 mg PO BEDTIME [facility] Last Admin: 12/28/21 20:58 Dose: 600 mg Trazodone HCl (Trazodone Hcl 50 Mg Tablet) 50 mg PO BEDTIME PRN PRN Reason: Insomnia Last Admin: 12/28/21 20:59 Dose: 50 mg Vitamin D (Cholecalciferol (Vitamin D3) 25 Mcg Tablet) 25 mcg PO DAILY ED Last Admin: 12/29/21 09:30 Dose: 25 mcg Allergies Allergies Allergy/AdvReac Type Severity Reaction Status Date / Time No Known Allergies Allergy Verified 12/19/21 16:24 Assessment & Plan Assessment & Plan (1) Bipolar 1 disorder: Status: Acute Code(s): F31.9 - Bipolar disorder, unspecified Plan Wade is a 71 y.o. male who carries a dx of bipolar I disorder. He is Indian speaking. He presented to [facility] on 12/19/21 upon son?s request due to manic presentation x 1 week i.e. not sleeping, up all night, hyperactive, bizarre behaviors (flooded the bathroom, rearranging things in the home, talking to his family as if 30 years have passed, drawing on the medina), and disinhibition. He has been med adherent. Unclear precipitating factor. Hx of multiple psych inpatient admissions and long hx of bipolar symptomatology. 12/20: obtain MOCA from OT once perla has resolved. decreased lexapro to 15 mg HS due to relative contraindication for bipolar spectrum disorder. Obtain further collateral info. 12/21: pt Rxed tegretol 200/400 outpt, which he apparently has not been taking. watch cells counts, Na, and LFTs. some renal impairment as well. 12/22 stop lexapro. continue other medications 12/23 continue tx. 12/24: continue current mgmt. contact collateral for opinion of nearness to baseline. remains impulsive with poor boundaries, apparently having touched male peer's abd and asked him if he is . 12/25: yesterday pt made inappropriate comments to SW regarding her physical person. no touching in the past 24H. calm and cooperative. declined MoCA with OT. 12/26: stable, hypersexual approach to females continues. med-compliant. threatened to punch male staff who was on 1:1 with him for remaining within 1 meter of him. check labs friday. 12/27: inappropriate comments to female staff re her body, exposed himself to roommate and female RN last night. single room with 1:1 when outside of room, otherwise continue current mgmt. check tegretol level and associated labs tomorrow. 12/28: labs trending improved from admission labs, tegretol level 7+. increase tegretol to 400 BID. inappropriate remarks to females regarding the attractiveness of their bodies continue. 12/29 Continue current treatment plan I spent ____15__ minutes with the patient and/or on the patient floor today, greater than?50% of which was spent counseling/coordinating care. Reason for contiued inpatient stay Substantial Risk for: harm to self, harm to others, inability to function and rapid decompensation
[2021-12-29 20:31] LABS: Glucose, Whole Blood 188 mg/dL (60-115)
[2021-12-29] MEDS: Gabapentin 300 MG CAPSULE PO (21:01)
[2021-12-29] MEDS: QUEtiapine Fumarate 300 MG TABLET 600 MG PO (21:04)
[2021-12-29] MEDS: Metoprolol Succinate ER 100 MG TAB.ER.24H 200 MG PO (21:05)
[2021-12-29] MEDS: Atorvastatin Calcium 10 MG TABLET PO (21:05)
[2021-12-29 21:09] VITALS: BP 138/77; PULSE 83; TEMP 36.6; O2SAT 96
[2021-12-30 08:12] VITALS: BP 127/75; PULSE 60; RESP 18; TEMP 36.6; O2SAT 98
[2021-12-30] MEDS: hydroCHLOROthiazide 25 MG TABLET PO (08:13)
[2021-12-30] MEDS: Cholecalciferol (Vitamin D3) 25 MCG TABLET PO (08:13)
[2021-12-30] MEDS: Aspirin Enteric Coated 81 MG TABLET.DR PO (08:13)
[2021-12-30] MEDS: Fenofibrate 160 MG TABLET PO (08:13)
[2021-12-30] MEDS: lisinopriL 40 MG TABLET PO (08:13)
[2021-12-30] MEDS: Levothyroxine Sodium 50 MCG TABLET PO (08:14)
[2021-12-30] MEDS: amLODIPine Besylate 10 MG TABLET PO (08:14)
[2021-12-30] MEDS: carBAMazepine ER 200 MG TAB.ER.12H 400 MG PO ×2 (08:14→20:59)
[2021-12-30] MEDS: metFORMIN HCl 1,000 MG TABLET 1000 MG PO (08:14)
[2021-12-30] MEDS: glipiZIDE 5 MG TABLET PO (08:15)
[2021-12-30 08:29] LABS: Glucose, Whole Blood 138 mg/dL (60-115)
--- NOTE | 2021-12-30 17:58 | P.PNPSI_ITS ---
Subjective Subjective Date of Service: 12/30/21 Reason For Visit: perla Interim History: Pt presenting still irritable. isolative; no insight. denies SI or HI . not attending groups. irritable re 1:1. sleeping well , eating well. medication adherent. VS OK. 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 He is overweight/ obese, adequately dressed and groomed. good eye contact, attentive. No Tics or Tremors. No abnormal involuntary movements. calm, cooperative. Non-pressured speech, spontaneous with regular rate and rhythm, normal volume and prosody. No prolonged speech latency or dysarthria. affect is flexible, normo-intense, insoucient, and full range. no SI/SIB/HI/AVH expressed. Thoughts are linear in brief interaction. cognitive impairment is suspected but has not been diagnosed. Insight/ Judgment poor. Diagnostics Vital Signs (24Hr): Vital Signs - 24 hr 12/29/21 21:09 12/30/21 08:12 Temperature 97.8 F 97.8 F Pulse Rate 83 60 Respiratory Rate 18 Blood Pressure 138/77 127/75 Pulse Oximetry 96 98 Oxygen Delivery Method Room Air Room Air BMI result Body Mass Index 41.1 Labs Results: 12/28/21 08:44 12/28/21 08:44 Labs: Laboratory Results - last 48 hr 12/28/21 12/29/21 12/29/21 20:48 09:10 20:23 POC Glucose 210 H 187 H 188 H 12/30/21 08:23 POC Glucose 138 H Imaging Radiology Impressions: ITS Impressions Foot X-Ray 12/21/21 13:55 IMPRESSION: No fracture seen. Medications Medications Current Medications Acetaminophen (Acetaminophen 325 Mg Tablet) 650 mg PO Q6H PRN PRN Reason: Headache/Pain Mild Scale (1-3) Al Hydroxide/Mg Hydroxide (Magnesium Hydrox/Alum Hydrox 30 Ml Oral.Susp) 30 ml PO Q6H PRN PRN Reason: Heartburn/Nausea Last Admin: 12/24/21 17:54 Dose: 30 ml Amlodipine Besylate (Amlodipine Besylate 10 Mg Tablet) 10 mg PO DAILY [facility]; Protocol Last Admin: 12/30/21 08:14 Dose: 10 mg Aspirin (Aspirin Enteric Coated 81 Mg Tablet.Dr) 81 mg PO DAILY [facility] Last Admin: 12/30/21 08:13 Dose: 81 mg Atorvastatin Calcium (Atorvastatin Calcium 10 Mg Tablet) 10 mg PO BEDTIME [facility] Last Admin: 12/29/21 21:05 Dose: 10 mg Carbamazepine (Carbamazepine Er 200 Mg Tab.Er.12h) 400 mg PO BID [facility] Last Admin: 12/30/21 08:14 Dose: 400 mg Fenofibrate (Fenofibrate 160 Mg Tablet) 160 mg PO DAILY [facility] Last Admin: 12/30/21 08:13 Dose: 160 mg Gabapentin (Gabapentin 300 Mg Capsule) 300 mg PO BEDTIME [facility] Last Admin: 12/29/21 21:01 Dose: 300 mg Glipizide (Glipizide 5 Mg Tablet) 5 mg PO DAILY [facility] Last Admin: 12/30/21 08:15 Dose: 5 mg Hydrochlorothiazide (Hydrochlorothiazide 25 Mg Tablet) 25 mg PO DAILY [facility]; Protocol Last Admin: 12/30/21 08:13 Dose: 25 mg Hydroxyzine HCl (Hydroxyzine Hcl 25 Mg Tablet) 25 mg PO Q6H PRN PRN Reason: Anxiety Last Admin: 12/22/21 21:56 Dose: 25 mg Levothyroxine Sodium (Levothyroxine Sodium 50 Mcg Tablet) 50 mcg PO DAILY@0630 [facility] Last Admin: 12/30/21 08:14 Dose: 50 mcg Lisinopril (Lisinopril 40 Mg Tablet) 40 mg PO DAILY [facility]; Protocol Last Admin: 12/30/21 08:13 Dose: 40 mg Magnesium Hydroxide (Milk Of Magnesia 30 Ml Oral.Susp) 30 ml PO DAILY PRN PRN Reason: Constipation Metformin HCl (Metformin Hcl 1,000 Mg Tablet) 1,000 mg PO DAILY [facility] Last Admin: 12/30/21 08:14 Dose: 1,000 mg Metoprolol Succinate (Metoprolol Succinate Er 100 Mg Tab.Er.24h) 200 mg PO BE DTIME [facility]; Protocol Last Admin: 12/29/21 21:05 Dose: 200 mg Multi-Ingred Cream/Lotion/Oil/Oint (Mineral Oil/Petrolatum,White 106 Gm Tube) 1 appl TOPICAL BID ED Last Admin: 12/30/21 08:15 Dose: Not Given Nicotine Polacrilex (Nicotine Polacrilex 2 Mg Gum) 2 mg BUCCAL Q2H PRN PRN Reason: Nicotine Cravings Quetiapine Fumarate (Quetiapine Fumarate 300 Mg Tablet) 600 mg PO BEDTIME ED Last Admin: 12/29/21 21:04 Dose: 600 mg Trazodone HCl (Trazodone Hcl 50 Mg Tablet) 50 mg PO BEDTIME PRN PRN Reason: Insomnia Last Admin: 12/28/21 20:59 Dose: 50 mg Vitamin D (Cholecalciferol (Vitamin D3) 25 Mcg Tablet) 25 mcg PO DAILY ED Last Admin: 12/30/21 08:13 Dose: 25 mcg Allergies Allergies Allergy/AdvReac Type Severity Reaction Status Date / Time No Known Allergies Allergy Verified 12/19/21 16:24 Assessment & Plan Assessment & Plan (1) Bipolar 1 disorder: Status: Acute Code(s): F31.9 - Bipolar disorder, unspecified Plan Wade is a 71 y.o. male who carries a dx of bipolar I disorder. He is Montene[place]in speaking. He presented to [facility] on 12/19/21 upon son?s request due to manic presentation x 1 week i.e. not sleeping, up all night, hyperactive, bizarre behaviors (flooded the bathroom, rearranging things in the home, talking to his family as if 30 years have passed, drawing on the [place]), and disinhibition. He has been med adherent. Unclear precipitating factor. Hx of multiple psych inpatient admissions and long hx of bipolar symptomatology. 12/20: obtain MOCA from OT once perla has resolved. decreased lexapro to 15 mg HS due to relative contraindication for bipolar spectrum disorder. Obtain further collateral info. 12/21: pt Rxed tegretol 200/400 outpt, which he apparently has not been taking. watch cells counts, Na, and LFTs. some renal impairment as well. 12/22 stop lexapro. continue other medications 12/23 continue tx. 12/24: continue current mgmt. contact collateral for opinion of nearness to baseline. remains impulsive with poor boundaries, apparently having touched male peer's abd and asked him if he is . 12/25: yesterday pt made inappropriate comments to SW regarding her physical person. no touching in the past 24H. calm and cooperative. declined MoCA with OT. 12/26: stable, hypersexual approach to females continues. med-compliant. threatened to punch male staff who was on 1:1 with him for remaining within 1 meter of him. check labs friday. 12/27: inappropriate comments to female staff re her body, exposed himself to roommate and female RN last night. single room with 1:1 when outside of room, otherwise continue current mgmt. check tegretol level and associated labs tomorrow. 12/28: labs trending improved from admission labs, tegretol level 7+. increase tegretol to 400 BID. inappropriate remarks to females regarding the attractiveness of their bodies continue. 12/29 Continue current treatment plan 12/30 Continue with treatment plan I spent __15____ minutes with the patient and/or on the patient floor today, greater than?50% of which was spent counseling/coordinating care. Reason for contiued inpatient stay Substantial Risk for: harm to self, harm to others, inability to function and rapid decompensation
[2021-12-30 20:50] VITALS: BP 175/89; PULSE 65; RESP 18; TEMP 36.3; O2SAT 100
[2021-12-30] MEDS: QUEtiapine Fumarate 300 MG TABLET 600 MG PO (20:59)
[2021-12-30] MEDS: Atorvastatin Calcium 10 MG TABLET PO (20:59)
[2021-12-30] MEDS: Gabapentin 300 MG CAPSULE PO (20:59)
[2021-12-30] MEDS: Metoprolol Succinate ER 100 MG TAB.ER.24H 200 MG PO (20:59)
[2021-12-30 21:02] LABS: Glucose, Whole Blood 195 mg/dL (60-115)
[2021-12-31 08:29] VITALS: BP 130/83; PULSE 66; RESP 18; TEMP 36.2; O2SAT 98
[2021-12-31] MEDS: metFORMIN HCl 1,000 MG TABLET 1000 MG PO (08:31)
[2021-12-31] MEDS: amLODIPine Besylate 10 MG TABLET PO (08:31)
[2021-12-31] MEDS: Aspirin Enteric Coated 81 MG TABLET.DR PO (08:31)
[2021-12-31] MEDS: lisinopriL 40 MG TABLET PO (08:31)
[2021-12-31] MEDS: Fenofibrate 160 MG TABLET PO (08:32)
[2021-12-31] MEDS: glipiZIDE 5 MG TABLET PO (08:32)
[2021-12-31] MEDS: Cholecalciferol (Vitamin D3) 25 MCG TABLET PO (08:32)
[2021-12-31] MEDS: hydroCHLOROthiazide 25 MG TABLET PO (08:32)
[2021-12-31] MEDS: carBAMazepine ER 200 MG TAB.ER.12H 400 MG PO ×2 (08:32→22:21)
[2021-12-31] MEDS: Levothyroxine Sodium 50 MCG TABLET PO (08:33)
[2021-12-31 09:02] LABS: Glucose, Whole Blood 132 mg/dL (60-115)
--- NOTE | 2021-12-31 15:56 | HO.PSYCHPN ---
Subjective Subjective Date of Service: 12/31/21 Reason For Visit: perla Interim History: calm, cooperative. complaining about being on 1:1, denying any problem with his salacious proposals and comments. son called MD and let MD know this behavior is very uncharacteristic for his father, whom he describes as normally extremely reserved. per staff, saying this morning he is going to rape females on the unit, angry about 1:1. irritable, pacing. agitated the TV was turned off during group time. guarded. not attending groups. minimal engagement. eves happier. proposed to shag female staff, also saying, i'm hungry, can i bite you? overnight RNs also reporting inappropriate language. med-compliant, sleeping well. Mental Status Exam Mental Status Exam Narrative: Alert. He is overweight/ obese, adequately dressed and groomed. good eye contact, attentive. No Tics or Tremors. No abnormal involuntary movements. calm, cooperative. Non-pressured speech, spontaneous with regular rate and rhythm, normal volume and prosody. No prolonged speech latency or dysarthria. affect is flexible, normo-intense, insoucient, and full range. no SI/SIB/HI/AVH expressed. Thoughts are linear in brief interaction, hypersexual. cognitive impairment is suspected but has not been diagnosed. Insight/ Judgment poor. Diagnostics Vital Signs (24Hr): Vital Signs - 24 hr 12/30/21 20:50 12/31/21 08:29 Temperature 97.4 F 97.2 F Pulse Rate 65 66 Respiratory Rate 18 18 Blood Pressure 175/89 H 130/83 Pulse Oximetry 100 98 Oxygen Delivery Method Room Air Room Air BMI result Body Mass Index 41.1 Labs Results: 12/28/21 08:44 12/28/21 08:44 Labs: Laboratory Results - last 48 hr 12/29/21 12/30/21 12/30/21 20:23 08:23 20:54 POC Glucose 188 H 138 H 195 H 12/31/21 08:46 POC Glucose 132 H Imaging Radiology Impressions: ITS Impressions Foot X-Ray 12/21/21 13:55 IMPRESSION: No fracture seen. Medications Medications Current Medications Acetaminophen (Acetaminophen 325 Mg Tablet) 650 mg PO Q6H PRN PRN Reason: Headache/Pain Mild Scale (1-3) Al Hydroxide/Mg Hydroxide (Magnesium Hydrox/Alum Hydrox 30 Ml Oral.Susp) 30 ml PO Q6H PRN PRN Reason: Heartburn/Nausea Last Admin: 12/24/21 17:54 Dose: 30 ml Amlodipine Besylate (Amlodipine Besylate 10 Mg Tablet) 10 mg PO DAILY [facility]; Protocol Last Admin: 12/31/21 08:31 Dose: 10 mg Aspirin (Aspirin Enteric Coated 81 Mg Tablet.Dr) 81 mg PO DAILY [facility] Last Admin: 12/31/21 08:31 Dose: 81 mg Atorvastatin Calcium (Atorvastatin Calcium 10 Mg Tablet) 10 mg PO BEDTIME ED Last Admin: 12/30/21 20:59 Dose: 10 mg Carbamazepine (Carbamazepine Er 200 Mg Tab.Er.12h) 400 mg PO BID [facility] Last Admin: 12/31/21 08:32 Dose: 400 mg Fenofibrate (Fenofibrate 160 Mg Tablet) 160 mg PO DAILY [facility] Last Admin: 12/31/21 08:32 Dose: 160 mg Gabapentin (Gabapentin 300 Mg Capsule) 300 mg PO BEDTIME [facility] Last Admin: 12/30/21 20:59 Dose: 300 mg Glipizide (Glipizide 5 Mg Tablet) 5 mg PO DAILY [facility] Last Admin: 12/31/21 08:32 Dose: 5 mg Hydrochlorothiazide (Hydrochlorothiazide 25 Mg Tablet) 25 mg PO DAILY [facility]; Protocol Last Admin: 12/31/21 08:32 Dose: 25 mg Hydroxyzine HCl (Hydroxyzine Hcl 25 Mg Tablet) 25 mg PO Q6H PRN PRN Reason: Anxiety Last Admin: 12/22/21 21:56 Dose: 25 mg Levothyroxine Sodium (Levothyroxine Sodium 50 Mcg Tablet) 50 mcg PO DAILY@0630 [facility] Last Admin: 12/31/21 08:33 Dose: 50 mcg Lisinopril (Lisinopril 40 Mg Tablet) 40 mg PO DAILY [facility]; Protocol Last Admin: 12/31/21 08:31 Dose: 40 mg Magnesium Hydroxide (Milk Of Magnesia 30 Ml Oral.Susp) 30 ml PO DAILY PRN PRN Reason: Constipation Metformin HCl (Metformin Hcl 1,000 Mg Tablet) 1,000 mg PO DAILY [facility] Last Admin: 12/31/21 08:31 Dose: 1,000 mg Metoprolol Succinate (Metoprolol Succinate Er 100 Mg Tab.Er.24h) 200 mg PO BEDTIME [facility]; Protocol Last Admin: 12/30/21 20:59 Dose: 200 mg Multi-Ingred Cream/Lotion/Oil/Oint (Mineral Oil/Petrolatum,White 106 Gm Tube) 1 appl TOPICAL BID [facility] Last Admin: 12/31/21 08:33 Dose: Not Given Nicotine Polacrilex (Nicotine Polacrilex 2 Mg Gum) 2 mg BUCCAL Q2H PRN PRN Reason: Nicotine Cravings Quetiapine Fumarate (Quetiapine Fumarate 300 Mg Tablet) 600 mg PO BEDTIME [facility] Last Admin: 12/30/21 20:59 Dose: 600 mg Trazodone HCl (Trazodone Hcl 50 Mg Tablet) 50 mg PO BEDTIME PRN PRN Reason: Insomnia Last Admin: 12/28/21 20:59 Dose: 50 mg Vitamin D (Cholecalciferol (Vitamin D3) 25 Mcg Tablet) 25 mcg PO DAILY [facility] Last Admin: 12/31/21 08:32 Dose: 25 mcg Allergies Allergies Allergy/AdvReac Type Severity Reaction Status Date / Time No Known Allergies Allergy Verified 12/19/21 16:24 Assessment & Plan Assessment & Plan (1) Bipolar 1 disorder: Status: Acute Code(s): F31.9 - Bipolar disorder, unspecified Plan Wade is a 71 y.o. male who carries a dx of bipolar I disorder. He is Norwegian speaking. He presented to [facility] on 12/19/21 upon son?s request due to manic presentation x 1 week i.e. not sleeping, up all night, hyperactive, bizarre behaviors (flooded the bathroom, rearranging things in the home, talking to his family as if 30 years have passed, drawing on the [place]), and disinhibition. He has been med adherent. Unclear precipitating factor. Hx of multiple psych inpatient admissions and long hx of bipolar symptomatology. 12/20: obtain MOCA from OT once perla has resolved. decreased lexapro to 15 mg HS due to relative contraindication for bipolar spectrum disorder. Obtain further collateral info. 12/21: pt Rxed tegretol 200/400 outpt, which he apparently has not been taking. watch cells counts, Na, and LFTs. some renal impairment as well. 12/22 stop lexapro. continue other medications 12/23 continue tx. 12/24: continue current mgmt. contact collateral for opinion of nearness to baseline. remains impulsive with poor boundaries, apparently having touched male peer's abd and asked him if he is . 12/25: yesterday pt made inappropriate comments to SW regarding her physical person. no touching in the past 24H. calm and cooperative. declined MoCA with OT. 12/26: stable, hypersexual approach to females continues. med-compliant. threatened to punch male staff who was on 1:1 with him for remaining within 1 meter of him. check labs friday. 12/27: inappropriate comments to female staff re her body, exposed himself to roommate and female RN last night. single room with 1:1 when outside of room, otherwise continue current mgmt. check tegretol level and associated labs tomorrow. 12/28: labs trending improved from admission labs, tegretol level 7+. increase tegretol to 400 BID. inappropriate remarks to females regarding the attractiveness of their bodies continue. 12/29 Continue current treatment plan 12/30 Continue with treatment plan 12/31: continue current mgmt. son sharonda provided collateral info to . salacious proposals and comments continue. I spent __25____ minutes with the patient and/or on the patient floor today, greater than?50% of which was spent counseling/coordinating care. Reason for contiued inpatient stay Substantial Risk for: harm to self, harm to others, inability to function and rapid decompensation
[2021-12-31 22:10] VITALS: BP 140/87; PULSE 80; RESP 18; TEMP 36.2; O2SAT 99
[2021-12-31] MEDS: Atorvastatin Calcium 10 MG TABLET PO (22:21)
[2021-12-31] MEDS: QUEtiapine Fumarate 300 MG TABLET 600 MG PO (22:21)
[2021-12-31] MEDS: Gabapentin 300 MG CAPSULE PO (22:21)
[2021-12-31] MEDS: Metoprolol Succinate ER 100 MG TAB.ER.24H 200 MG PO (22:21)
[2022-01-01 08:45] VITALS: BP 131/81; PULSE 63; RESP 16; TEMP 36.4; O2SAT 100
[2022-01-01 08:55] LABS: Glucose, Whole Blood 109 mg/dL (60-115)
[2022-01-01] MEDS: carBAMazepine ER 200 MG TAB.ER.12H 400 MG PO ×2 (09:13→20:50)
[2022-01-01] MEDS: Levothyroxine Sodium 50 MCG TABLET PO (09:13)
[2022-01-01] MEDS: hydroCHLOROthiazide 25 MG TABLET PO (09:14)
[2022-01-01] MEDS: metFORMIN HCl 1,000 MG TABLET 1000 MG PO (09:14)
[2022-01-01] MEDS: amLODIPine Besylate 10 MG TABLET PO (09:14)
[2022-01-01] MEDS: Fenofibrate 160 MG TABLET PO (09:14)
[2022-01-01] MEDS: Aspirin Enteric Coated 81 MG TABLET.DR PO (09:14)
[2022-01-01] MEDS: glipiZIDE 5 MG TABLET PO (09:14)
[2022-01-01] MEDS: Cholecalciferol (Vitamin D3) 25 MCG TABLET PO (09:14)
[2022-01-01] MEDS: lisinopriL 40 MG TABLET PO (09:14)
--- NOTE | 2022-01-01 15:50 | P.PNPSI_ITS ---
Subjective Subjective Date of Service: 01/01/22 Reason For Visit: perla Interim History: calm, cooperative. angry. seeking out MD fuchs he says MD promised him something yesterday. MD reviews RN notes, no mention of sexualized behaviors in the past 24H; agrees to decrease obs level to CO for now. pt asking why he remains in the hospital, notes for safety and stability. pt states he will lobby his son, sharonda, for discharge. per staff, pt was noted to have said something shay to i'm going to rape all the girls on the unit yesterday (he reported today it was a sarcastic comment). attending groups. worse than long-term. guarded, isolative. threatened to throw shoe at staff. eating, sleeping, irritable. Mental Status Exam Mental Status Exam Narrative: Alert. He is overweight/ obese, adequately dressed and groomed. good eye contact, attentive. No Tics or Tremors. No abnormal involuntary movements. calm, cooperative. Non-pressured speech, spontaneous with regular rate and rhythm, normal volume and prosody. No prolonged speech latency or dysarthria. affect is flexible, normo-intense, insoucient, and full range. no SI/SIB/HI/AVH expressed. Thoughts are linear and logical. cognitive impairment is suspected but has not been diagnosed; pt does not recall his concerning behaviors of earlier in the stay. Insight/ Judgment poor. Diagnostics Vital Signs (24Hr): Vital Signs - 24 hr 12/31/21 22:10 01/01/22 08:45 Temperature 97.2 F 97.5 F Pulse Rate 80 63 Respiratory Rate 18 16 Blood Pressure 140/87 H 131/81 Pulse Oximetry 99 100 Oxygen Delivery Method Room Air Room Air BMI result Body Mass Index 41.1 Labs Results: 12/28/21 08:44 12/28/21 08:44 Labs: Laboratory Results - last 48 hr 12/30/21 12/31/21 01/01/22 20:54 08:46 08:48 POC Glucose 195 H 132 H 109 Imaging Radiology Impressions: ITS Impressions Foot X-Ray 12/21/21 13:55 IMPRESSION: No fracture seen. Medications Medications Current Medications Acetaminophen (Acetaminophen 325 Mg Tablet) 650 mg PO Q6H PRN PRN Reason: Headache/Pain Mild Scale (1-3) Al Hydroxide/Mg Hydroxide (Magnesium Hydrox/Alum Hydrox 30 Ml Oral.Susp) 30 ml PO Q6H PRN PRN Reason: Heartburn/Nausea Last Admin: 12/24/21 17:54 Dose: 30 ml Amlodipine Besylate (Amlodipine Besylate 10 Mg Tablet) 10 mg PO DAILY [facility]; Protocol Last Admin: 01/01/22 09:14 Dose: 10 mg Aspirin (Aspirin Enteric Coated 81 Mg Tablet.Dr) 81 mg PO DAILY [facility] Last Admin: 01/01/22 09:14 Dose: 81 mg Atorvastatin Calcium (Atorvastatin Calcium 10 Mg Tablet) 10 mg PO BEDTIME ED Last Admin: 12/31/21 22:21 Dose: 10 mg Carbamazepine (Carbamazepine Er 200 Mg Tab.Er.12h) 400 mg PO BID [facility] Last Admin: 01/01/22 09:13 Dose: 400 mg Fenofibrate (Fenofibrate 160 Mg Tablet) 160 mg PO DAILY [facility] Last Admin: 01/01/22 09:14 Dose: 160 mg Gabapentin (Gabapentin 300 Mg Capsule) 300 mg PO BEDTIME ED Last Admin: 12/31/21 22:21 Dose: 300 mg Glipizide (Glipizide 5 Mg Tablet) 5 mg PO DAILY [facility] Last Admin: 01/01/22 09:14 Dose: 5 mg Hydrochlorothiazide (Hydrochlorothiazide 25 Mg Tablet) 25 mg PO DAILY [facility]; Protocol Last Admin: 01/01/22 09:14 Dose: 25 mg Hydroxyzine HCl (Hydroxyzine Hcl 25 Mg Tablet) 25 mg PO Q6H PRN PRN Reason: Anxiety Last Admin: 12/22/21 21:56 Dose: 25 mg Levothyroxine Sodium (Levothyroxine Sodium 50 Mcg Tablet) 50 mcg PO DAILY@0630 [facility] Last Admin: 01/01/22 09:13 Dose: 50 mcg Lisinopril (Lisinopril 40 Mg Tablet) 40 mg PO DAILY [facility]; Protocol Last Admin: 01/01/22 09:14 Dose: 40 mg Magnesium Hydroxide (Milk Of Magnesia 30 Ml Oral.Susp) 30 ml PO DAILY PRN PRN Reason: Constipation Metformin HCl (Metformin Hcl 1,000 Mg Tablet) 1,000 mg PO DAILY [facility] Last Admin: 01/01/22 09:14 Dose: 1,000 mg Metoprolol Succinate (Metoprolol Succinate Er 100 Mg Tab.Er.24h) 200 mg PO BEDTIME [facility]; Protocol Last Admin: 12/31/21 22:21 Dose: 200 mg Multi-Ingred Cream/Lotion/Oil/Oint (Mineral Oil/Petrolatum,White 106 Gm Tube) 1 appl TOPICAL BID [facility] Last Admin: 01/01/22 09:49 Dose: Not Given Nicotine Polacrilex (Nicotine Polacrilex 2 Mg Gum) 2 mg BUCCAL Q2H PRN PRN Reason: Nicotine Cravings Quetiapine Fumarate (Quetiapine Fumarate 300 Mg Tablet) 600 mg PO BEDTIME [facility] Last Admin: 12/31/21 22:21 Dose: 600 mg Trazodone HCl (Trazodone Hcl 50 Mg Tablet) 50 mg PO BEDTIME PRN PRN Reason: Insomnia Last Admin: 12/28/21 20:59 Dose: 50 mg Vitamin D (Cholecalciferol (Vitamin D3) 25 Mcg Tablet) 25 mcg PO DAILY [facility] Last Admin: 01/01/22 09:14 Dose: 25 mcg Allergies Allergies Allergy/AdvReac Type Severity Reaction Status Date / Time No Known Allergies Allergy Verified 12/19/21 16:24 Assessment & Plan Assessment & Plan (1) Bipolar 1 disorder: Status: Acute Code(s): F31.9 - Bipolar disorder, unspecified Plan Wade is a 71 y.o. male who carries a dx of bipolar I disorder. He is [place] speaking. He presented to [facility] on 12/19/21 upon son?s request due to manic presentation x 1 week i.e. not sleeping, up all night, hyperactive, bizarre behaviors (flooded the bathroom, rearranging things in the home, talking to his family as if 30 years have passed, drawing on the [place]), and disinhibition. He has been med adherent. Unclear precipitating factor. Hx of multiple psych inpatient admissions and long hx of bipolar symptomatology. 12/20: obtain MOCA from OT once perla has resolved. decreased lexapro to 15 mg HS due to relative contraindication for bipolar spectrum disorder. Obtain further collateral info. 12/21: pt Rxed tegretol 200/400 outpt, which he apparently has not been taking. watch cells counts, Na, and LFTs. some renal impairment as well. 12/22 stop lexapro. continue other medications 12/23 continue tx. 12/24: continue current mgmt. contact collateral for opinion of nearness to baseline. remains impulsive with poor boundaries, apparently having touched male peer's abd and asked him if he is . 12/25: yesterday pt made inappropriate comments to SW regarding her physical person. no touching in the past 24H. calm and cooperative. declined MoCA with OT. 12/26: stable, hypersexual approach to females continues. med-compliant. threatened to punch male staff who was on 1:1 with him for remaining within 1 meter of him. check labs friday. 12/27: inappropriate comments to female staff re her body, exposed himself to roommate and female RN last night. single room with 1:1 when outside of room, otherwise continue current mgmt. check tegretol level and associated labs tomorrow. 12/28: labs trending improved from admission labs, tegretol level 7+. increase tegretol to 400 BID. inappropriate remarks to females regarding the attractiveness of their bodies continue. 12/29 Continue current treatment plan 12/30 Continue with treatment plan 12/31: continue current mgmt. son sharonda provided collateral info to . salacious proposals and comments continue. 01/01: change OBS to CO. otherwise continue current mgmt. no sexualized talk/behavior in the past day. I spent ___25___ minutes with the patient and/or on the patient floor today, greater than?50% of which was spent counseling/coordinating care. Reason for contiued inpatient stay Substantial Risk for: harm to self, harm to others, inability to function and rapid decompensation
[2022-01-01 20:47] VITALS: BP 120/65; PULSE 83; TEMP 36.4; O2SAT 98
[2022-01-01] MEDS: Atorvastatin Calcium 10 MG TABLET PO (20:51)
[2022-01-01] MEDS: Metoprolol Succinate ER 100 MG TAB.ER.24H 200 MG PO (20:51)
[2022-01-01] MEDS: QUEtiapine Fumarate 300 MG TABLET 600 MG PO (20:51)
[2022-01-01] MEDS: traZODone HCL 50 MG TABLET PO (20:51)
[2022-01-01] MEDS: Gabapentin 300 MG CAPSULE PO (20:53)
[2022-01-01 21:01] LABS: Glucose, Whole Blood 180 mg/dL (60-115)
[2022-01-01] MEDS: Mineral Oil/Petrolatum,White 106 GM Tube 1 APPL TOPICAL (22:15)
[2022-01-02 08:45] VITALS: BP 162/77; PULSE 64; RESP 20; TEMP 36.1; O2SAT 99
[2022-01-02] MEDS: amLODIPine Besylate 10 MG TABLET PO (08:46)
[2022-01-02] MEDS: lisinopriL 40 MG TABLET PO (08:46)
[2022-01-02] MEDS: Aspirin Enteric Coated 81 MG TABLET.DR PO (08:46)
[2022-01-02] MEDS: glipiZIDE 5 MG TABLET PO (08:46)
[2022-01-02] MEDS: carBAMazepine ER 200 MG TAB.ER.12H 400 MG PO ×2 (08:46→21:25)
[2022-01-02] MEDS: Levothyroxine Sodium 50 MCG TABLET PO (08:46)
[2022-01-02] MEDS: hydroCHLOROthiazide 25 MG TABLET PO (08:46)
[2022-01-02] MEDS: Cholecalciferol (Vitamin D3) 25 MCG TABLET PO (08:46)
[2022-01-02] MEDS: metFORMIN HCl 1,000 MG TABLET 1000 MG PO (08:46)
[2022-01-02 08:55] LABS: Glucose, Whole Blood 119 mg/dL (60-115)
[2022-01-02] MEDS: Fenofibrate 160 MG TABLET PO (09:30)
--- NOTE | 2022-01-02 14:10 | HO.PSYCHPN ---
Subjective Subjective Date of Service: 01/02/22 Reason For Visit: perla Interim History: calm, cooperative. appears bored, annoyed. states as much. acknowledges that he has not approached anyone sexually in the past 24H. per staff, refused 1:1 contact in the a.m. pacing halls, watching TV. less inappropriate. isolative. less labile. eating and sleeping. Mental Status Exam Mental Status Exam Narrative: Alert. He is overweight/ obese, adequately dressed and groomed. good eye contact, attentive. No Tics or Tremors. No abnormal involuntary movements. calm, cooperative. Non-pressured speech, spontaneous with regular rate and rhythm, normal volume and prosody. No prolonged speech latency or dysarthria. affect is flexible, normo-intense, insoucient, and full range. no SI/SIB/HI/AVH expressed. Thoughts are linear and logical. cognitive impairment is suspected but has not been diagnosed; pt does not recall his concerning behaviors of earlier in the stay. Insight/ Judgment poor. Diagnostics Vital Signs (24Hr): Vital Signs - 24 hr 01/01/22 20:47 01/02/22 08:45 Temperature 97.6 F 96.9 F Pulse Rate 83 64 Respiratory Rate 20 Blood Pressure 120/65 162/77 H Pulse Oximetry 98 99 Oxygen Delivery Method Room Air Room Air BMI result Body Mass Index 41.1 Labs Results: 12/28/21 08:44 12/28/21 08:44 Labs: Laboratory Results - last 48 hr 01/01/22 01/01/22 01/02/22 08:48 20:50 08:35 POC Glucose 109 180 H 119 H Imaging Radiology Impressions: ITS Impressions Foot X-Ray 12/21/21 13:55 IMPRESSION: No fracture seen. Medications Medications Current Medications Acetaminophen (Acetaminophen 325 Mg Tablet) 650 mg PO Q6H PRN PRN Reason: Headache/Pain Mild Scale (1-3) Al Hydroxide/Mg Hydroxide (Magnesium Hydrox/Alum Hydrox 30 Ml Oral.Susp) 30 ml PO Q6H PRN PRN Reason: Heartburn/Nausea Last Admin: 12/24/21 17:54 Dose: 30 ml Amlodipine Besylate (Amlodipine Besylate 10 Mg Tablet) 10 mg PO DAILY [facility]; Protocol Last Admin: 01/02/22 08:46 Dose: 10 mg Aspirin (Aspirin Enteric Coated 81 Mg Tablet.Dr) 81 mg PO DAILY [facility] Last Admin: 01/02/22 08:46 Dose: 81 mg Atorvastatin Calcium (Atorvastatin Calcium 10 Mg Tablet) 10 mg PO BEDTIME [facility] Last Admin: 01/01/22 20:51 Dose: 10 mg Carbamazepine (Carbamazepine Er 200 Mg Tab.Er.12h) 400 mg PO BID [facility] Last Admin: 01/02/22 08:46 Dose: 400 mg Fenofibrate (Fenofibrate 160 Mg Tablet) 160 mg PO DAILY [facility] Last Admin: 01/02/22 09:30 Dose: 160 mg Gabapentin (Gabapentin 300 Mg Capsule) 300 mg PO BEDTIME [facility] Last Admin: 01/01/22 20:53 Dose: 300 mg Glipizide (Glipizide 5 Mg Tablet) 5 mg PO DAILY [facility] Last Admin: 01/02/22 08:46 Dose: 5 mg Hydrochlorothiazide (Hydrochlorothiazide 25 Mg Tablet) 25 mg PO DAILY [facility]; Protocol Last Admin: 01/02/22 08:46 Dose: 25 mg Hydroxyzine HCl (Hydroxyzine Hcl 25 Mg Tablet) 25 mg PO Q6H PRN PRN Reason: Anxiety Last Admin: 12/22/21 21:56 Dose: 25 mg Levothyroxine Sodium (Levothyroxine Sodium 50 Mcg Tablet) 50 mcg PO DAILY@0630 [facility] Last Admin: 01/02/22 08:46 Dose: 50 mcg Lisinopril (Lisinopril 40 Mg Tablet) 40 mg PO DAILY [facility]; Protocol Last Admin: 01/02/22 08:46 Dose: 40 mg Magnesium Hydroxide (Milk Of Magnesia 30 Ml Oral.Susp) 30 ml PO DAILY PRN PRN Reason: Constipation Metformin HCl (Metformin Hcl 1,000 Mg Tablet) 1,000 mg PO DAILY [facility] Last Admin: 01/02/22 08:46 Dose: 1,000 mg Metoprolol Succinate (Metoprolol Succinate Er 100 Mg Tab.Er.24h) 200 mg PO BEDTIME [facility]; Protocol Last Admin: 01/01/22 20:51 Dose: 200 mg Multi-Ingred Cream/Lotion/Oil/Oint (Mineral Oil/Petrolatum,White 106 Gm Tube) 1 appl TOPICAL BID [facility] Last Admin: 01/02/22 10:07 Dose: Not Given Nicotine Polacrilex (Nicotine Polacrilex 2 Mg Gum) 2 mg BUCCAL Q2H PRN PRN Reason: Nicotine Cravings Quetiapine Fumarate (Quetiapine Fumarate 300 Mg Tablet) 600 mg PO BEDTIME ED Last Admin: 01/01/22 20:51 Dose: 600 mg Trazodone HCl (Trazodone Hcl 50 Mg Tablet) 50 mg PO BEDTIME PRN PRN Reason: Insomnia Last Admin: 01/01/22 20:51 Dose: 50 mg Vitamin D (Cholecalciferol (Vitamin D3) 25 Mcg Tablet) 25 mcg PO DAILY ED Last Admin: 01/02/22 08:46 Dose: 25 mcg Allergies Allergies Allergy/AdvReac Type Severity Reaction Status Date / Time No Known Allergies Allergy Verified 12/19/21 16:24 Assessment & Plan Assessment & Plan (1) Bipolar 1 disorder: Status: Acute Code(s): F31.9 - Bipolar disorder, unspecified Plan Wade is a 71 y.o. male who carries a dx of bipolar I disorder. He is [place] speaking. He presented [place] [facility] on [place] upon son?s request due to manic presentation x 1 week i.e. not sleeping, up all night, hyperactive, bizarre behaviors (flooded the bathroom, rearranging things in the home, talking to his family as if 30 years have passed, drawing on the [place]), and disinhibition. He has been med adherent. Unclear precipitating factor. Hx of multiple psych inpatient admissions and long hx of bipolar symptomatology. 12/20: obtain MOCA from OT once perla has resolved. decreased lexapro to 15 mg HS due to relative contraindication for bipolar spectrum disorder. Obtain further collateral info. 12/21: pt Rxed tegretol 200/400 outpt, which he apparently has not been taking. watch cells counts, Na, and LFTs. some renal impairment as well. 12/22 stop lexapro. continue other medications 12/23 continue tx. 12/24: continue current mgmt. contact collateral for opinion of nearness to baseline. remains impulsive with poor boundaries, apparently having touched male peer's abd and asked him if he is . 12/25: yesterday pt made inappropriate comments to SW regarding her physical person. no touching in the past 24H. calm and cooperative. declined MoCA with OT. 12/26: stable, hypersexual approach to females continues. med-compliant. threatened to punch male staff who was on 1:1 with him for remaining within 1 meter of him. check labs friday. 12/27: inappropriate comments to female staff re her body, exposed himself to roommate and female RN last night. single room with 1:1 when outside of room, otherwise continue current mgmt. check tegretol level and associated labs tomorrow. 12/28: labs trending improved from admission labs, tegretol level 7+. increase tegretol to 400 BID. inappropriate remarks to females regarding the attractiveness of their bodies continue. 12/29 Continue current treatment plan 12/30 Continue with treatment plan 12/31: continue current mgmt. son sharonda provided collateral info to . salacious proposals and comments continue. 01/01: change OBS to CO. otherwise continue current mgmt. no sexualized talk/behavior in the past day. 01/02: continue CO with plan to move to Q5 min checks tomorrow if current trajectory holds. otherwise continue current mgmt. no sexualized talk/behavior in the past day (now 2 day streak). I spent ___25___ minutes with the patient and/or on the patient floor today, greater than?50% of which was spent counseling/coordinating care. Reason for contiued inpatient stay Substantial Risk for: inability to function and rapid decompensation
[2022-01-02 21:20] VITALS: BP 150/76; PULSE 75; RESP 18; TEMP 36.1; O2SAT 97
[2022-01-02] MEDS: Metoprolol Succinate ER 100 MG TAB.ER.24H 200 MG PO (21:25)
[2022-01-02] MEDS: Gabapentin 300 MG CAPSULE PO (21:25)
[2022-01-02] MEDS: Atorvastatin Calcium 10 MG TABLET PO (21:25)
[2022-01-02] MEDS: QUEtiapine Fumarate 300 MG TABLET 600 MG PO (21:25)
[2022-01-02 21:33] LABS: Glucose, Whole Blood 163 mg/dL (60-115)
[2022-01-03 07:00] VITALS: BMI 40.9
[2022-01-03 09:22] VITALS: BP 133/84; PULSE 61; RESP 20; TEMP 36.3; O2SAT 97
[2022-01-03] MEDS: carBAMazepine ER 200 MG TAB.ER.12H 400 MG PO ×2 (09:23→20:40)
[2022-01-03] MEDS: Cholecalciferol (Vitamin D3) 25 MCG TABLET PO (09:23)
[2022-01-03] MEDS: Fenofibrate 160 MG TABLET PO (09:23)
[2022-01-03] MEDS: hydroCHLOROthiazide 25 MG TABLET PO (09:23)
[2022-01-03] MEDS: Aspirin Enteric Coated 81 MG TABLET.DR PO (09:23)
[2022-01-03] MEDS: amLODIPine Besylate 10 MG TABLET PO (09:23)
[2022-01-03] MEDS: metFORMIN HCl 1,000 MG TABLET 1000 MG PO (09:23)
[2022-01-03] MEDS: lisinopriL 40 MG TABLET PO (09:23)
[2022-01-03] MEDS: glipiZIDE 5 MG TABLET PO (09:23)
[2022-01-03] MEDS: Levothyroxine Sodium 50 MCG TABLET PO (09:24)
[2022-01-03 09:37] LABS: Glucose, Whole Blood 126 mg/dL (60-115)
[2022-01-03] MEDS: Mineral Oil/Petrolatum,White 106 GM Tube 1 APPL TOPICAL (09:47)
--- NOTE | 2022-01-03 13:58 | HO.PSYCHPN ---
Subjective Subjective Date of Service: 01/03/22 Reason For Visit: perla Interim History: calm, cooperative. wanting discharge but agrees with plan to remain into next week. will see son tomorrow. informed labs ordered for tomorrow. per tj, irritable. pacing, safe, withdrawn. no inappropriate behavior noted in the past day. eating and sleeping well. Mental Status Exam Mental Status Exam Narrative: Alert. He is overweight/ obese, adequately dressed and groomed. good eye contact, attentive. No Tics or Tremors. No abnormal involuntary movements. calm, cooperative. Non-pressured speech, spontaneous with regular rate and rhythm, normal volume and prosody. No prolonged speech latency or dysarthria. affect is flexible, normo-intense, insoucient, and full range. no SI/SIB/HI/AVH expressed. Thoughts are linear and logical. cognitive impairment is suspected but has not been diagnosed; pt does not recall his concerning behaviors of earlier in the stay. Insight/ Judgment poor. Diagnostics Vital Signs (24Hr): Vital Signs - 24 hr 01/02/22 21:20 01/03/22 09:22 Temperature 97 F 97.4 F Pulse Rate 75 61 Respiratory Rate 18 20 Blood Pressure 150/76 H 133/84 Pulse Oximetry 97 97 Oxygen Delivery Method Room Air Room Air BMI result Body Mass Index 40.9 Labs Results: 12/28/21 08:44 12/28/21 08:44 Labs: Laboratory Results - last 48 hr 01/01/22 01/02/22 01/02/22 20:50 08:35 21:28 POC Glucose 180 H 119 H 163 H 01/03/22 09:19 POC Glucose 126 H Imaging Radiology Impressions: ITS Impressions Foot X-Ray 12/21/21 13:55 IMPRESSION: No fracture seen. Medications Medications Current Medications Acetaminophen (Acetaminophen 325 Mg Tablet) 650 mg PO Q6H PRN PRN Reason: Headache/Pain Mild Scale (1-3) Al Hydroxide/Mg Hydroxide (Magnesium Hydrox/Alum Hydrox 30 Ml Oral.Susp) 30 ml PO Q6H PRN PRN Reason: Heartburn/Nausea Last Admin: 12/24/21 17:54 Dose: 30 ml Amlodipine Besylate (Amlodipine Besylate 10 Mg Tablet) 10 mg PO DAILY [facility]; Protocol Last Admin: 01/03/22 09:23 Dose: 10 mg Aspirin (Aspirin Enteric Coated 81 Mg Tablet.Dr) 81 mg PO DAILY [facility] Last Admin: 01/03/22 09:23 Dose: 81 mg Atorvastatin Calcium (Atorvastatin Calcium 10 Mg Tablet) 10 mg PO BEDTIME [facility] Last Admin: 01/02/22 21:25 Dose: 10 mg Carbamazepine (Carbamazepine Er 200 Mg Tab.Er.12h) 400 mg PO BID [facility] Last Admin: 01/03/22 09:23 Dose: 400 mg Fenofibrate (Fenofibrate 160 Mg Tablet) 160 mg PO DAILY [facility] Last Admin: 01/03/22 09:23 Dose: 160 mg Gabapentin (Gabapentin 300 Mg Capsule) 300 mg PO BEDTIME [facility] Last Admin: 01/02/22 21:25 Dose: 300 mg Glipizide (Glipizide 5 Mg Tablet) 5 mg PO DAILY [facility] Last Admin: 01/03/22 09:23 Dose: 5 mg Hydrochlorothiazide (Hydrochlorothiazide 25 Mg Tablet) 25 mg PO DAILY [facility]; Protocol Last Admin: 01/03/22 09:23 Dose: 25 mg Hydroxyzine HCl (Hydroxyzine Hcl 25 Mg Tablet) 25 mg PO Q6H PRN PRN Reason: Anxiety Last Admin: 12/22/21 21:56 Dose: 25 mg Levothyroxine Sodium (Levothyroxine Sodium 50 Mcg Tablet) 50 mcg PO DAILY@0630 [facility] Last Admin: 01/03/22 09:24 Dose: 50 mcg Lisinopril (Lisinopril 40 Mg Tablet) 40 mg PO DAILY [facility]; Protocol Last Admin: 01/03/22 09:23 Dose: 40 mg Magnesium Hydroxide (Milk Of Magnesia 30 Ml Oral.Susp) 30 ml PO DAILY PRN PRN Reason: Constipation Metformin HCl (Metformin Hcl 1,000 Mg Tablet) 1,000 mg PO DAILY [facility] Last Admin: 01/03/22 09:23 Dose: 1,000 mg Metoprolol Succinate (Metoprolol Succinate Er 100 Mg Tab.Er.24h) 200 mg PO BEDTIME [facility]; Protocol Last Admin: 01/02/22 21:25 Dose: 200 mg Multi-Ingred Cream/Lotion/Oil/Oint (Mineral Oil/Petrolatum,White 106 Gm Tube) 1 appl TOPICAL BID [facility] Last Admin: 01/03/22 09:47 Dose: 1 appl Nicotine Polacrilex (Nicotine Polacrilex 2 Mg Gum) 2 mg BUCCAL Q2H PRN PRN Reason: Nicotine Cravings Quetiapine Fumarate (Quetiapine Fumarate 300 Mg Tablet) 600 mg PO BEDTIME ED Last Admin: 01/02/22 21:25 Dose: 600 mg Trazodone HCl (Trazodone Hcl 50 Mg Tablet) 50 mg PO BEDTIME PRN PRN Reason: Insomnia Last Admin: 01/01/22 20:51 Dose: 50 mg Vitamin D (Cholecalciferol (Vitamin D3) 25 Mcg Tablet) 25 mcg PO DAILY [facility] Last Admin: 01/03/22 09:23 Dose: 25 mcg Allergies Allergies Allergy/AdvReac Type Severity Reaction Status Date / Time No Known Allergies Allergy Verified 12/19/21 16:24 Assessment & Plan Assessment & Plan (1) Bipolar 1 disorder: Status: Acute Code(s): F31.9 - Bipolar disorder, unspecified Plan Wade is a 71 y.o. male who carries a dx of bipolar I disorder. He is [place] speaking. He presented to [facility] on 12/19/21 upon son?s request due to manic presentation x 1 week i.e. not sleeping, up all night, hyperactive, bizarre behaviors (flooded the bathroom, rearranging things in the home, talking to his family as if 30 years have passed, drawing on the [place]), and disinhibition. He has been med adherent. Unclear precipitating factor. Hx of multiple psych inpatient admissions and long hx of bipolar symptomatology. 12/20: obtain MOCA from OT once perla has resolved. decreased lexapro to 15 mg HS due to relative contraindication for bipolar spectrum disorder. Obtain further collateral info. 12/21: pt Rxed tegretol 200/400 outpt, which he apparently has not been taking. watch cells counts, Na, and LFTs. some renal impairment as well. 12/22 stop lexapro. continue other medications 12/23 continue tx. 12/24: continue current mgmt. contact collateral for opinion of nearness to baseline. remains impulsive with poor boundaries, apparently having touched male peer's abd and asked him if he is . 12/25: yesterday pt made inappropriate comments to SW regarding her physical person. no touching in the past 24H. calm and cooperative. declined MoCA with OT. 12/26: stable, hypersexual approach to females continues. med-compliant. threatened to punch male staff who was on 1:1 with him for remaining within 1 meter of him. check labs friday. 12/27: inappropriate comments to female staff re her body, exposed himself to roommate and female RN last night. single room with 1:1 when outside of room, otherwise continue current mgmt. check tegretol level and associated labs tomorrow. 12/28: labs trending improved from admission labs, tegretol level 7+. increase tegretol to 400 BID. inappropriate remarks to females regarding the attractiveness of their bodies continue. 12/29 Continue current treatment plan 12/30 Continue with treatment plan 12/31: continue current mgmt. son sharonda provided collateral info to . salacious proposals and comments continue. 01/01: change OBS to CO. otherwise continue current mgmt. no sexualized talk/behavior in the past day. 01/02: continue CO with plan to move to Q5 min checks tomorrow if current trajectory holds. otherwise continue current mgmt. no sexualized talk/behavior in the past day (now 2 day streak). 01/03: remains abstinent from sexualized talk or approach behaviors. changed to Q5 min checks. otherwise current mgmt continued. I spent ___25___ minutes with the patient and/or on the patient floor today, greater than?50% of which was spent counseling/coordinating care. Reason for contiued inpatient stay Substantial Risk for: inability to function and rapid decompensation
[2022-01-03] MEDS: Atorvastatin Calcium 10 MG TABLET PO (20:39)
[2022-01-03] MEDS: Metoprolol Succinate ER 100 MG TAB.ER.24H 200 MG PO (20:39)
[2022-01-03] MEDS: Gabapentin 300 MG CAPSULE PO (20:39)
[2022-01-03] MEDS: QUEtiapine Fumarate 300 MG TABLET 600 MG PO (20:39)
[2022-01-03 20:45] VITALS: BP 119/78; PULSE 82; RESP 18; TEMP 36.6; O2SAT 98
[2022-01-03 21:26] LABS: Glucose, Whole Blood 145 mg/dL (60-115)
[2022-01-04 08:50] LABS: MANUAL DIFF FLAG NO
[2022-01-04 08:53] LABS: Glucose, Whole Blood 109 mg/dL (60-115)
[2022-01-04 08:58] LABS: Basophils Percent Auto 0.7 % (0-2); Eosinophils Absolute Auto 0.2 X10*3/uL (0.0-0.4); Eosinophils Percent Auto 4.7 % (0-4); Hematocrit 39.4 % (42.0-52.0); Hemoglobin 13.6 g/dl (14.0-18.0); Imm Gran Abs Auto 0.01 X10*3/uL (0.00-0.03); Imm Gran Pct Auto 0.2 % (0.0-0.4); Lymphocytes Absolute Auto 2.2 X10*3/uL (1.2-4.9); Lymphocytes Percent Auto 50.5 % (20-40); Mean Corpuscular HGB Conc 34.5 g/dl (31.0-36.0); Mean Corpuscular Hemoglobin 32.6 pg (27.0-33.0); Mean Corpuscular Volume 94.5 fL (80.0-98.0); Mean Platelet Volume 10.5 fL (9.4-12.4); Monocytes Absolute Auto 0.5 X10*3/uL (0.1-1.2); Monocytes Percent Auto 10.4 % (2-11); Neutrophils Absolute Auto 1.5 x10*3/uL (2.0-8.3); Neutrophils Percent Auto 33.5 % (45-73); Platelet Count 186 X10*3/uL (160-400); Red Blood Count 4.17 X10*6/uL (4.60-5.80); Red Cell Distribution Width 12.3 % (11.0-16.0); White Blood Count 4.4 X10*3/uL (4.8-10.8)
[2022-01-04 09:12] VITALS: BP 130/80; PULSE 70; RESP 18; TEMP 35.8; O2SAT 100
[2022-01-04] MEDS: carBAMazepine ER 200 MG TAB.ER.12H 400 MG PO ×2 (09:12→21:16)
[2022-01-04] MEDS: lisinopriL 40 MG TABLET PO (09:13)
[2022-01-04] MEDS: hydroCHLOROthiazide 25 MG TABLET PO (09:14)
[2022-01-04] MEDS: Aspirin Enteric Coated 81 MG TABLET.DR PO (09:14)
[2022-01-04] MEDS: Cholecalciferol (Vitamin D3) 25 MCG TABLET PO (09:14)
[2022-01-04] MEDS: Fenofibrate 160 MG TABLET PO (09:14)
[2022-01-04] MEDS: amLODIPine Besylate 10 MG TABLET PO (09:14)
[2022-01-04] MEDS: glipiZIDE 5 MG TABLET PO (09:15)
[2022-01-04] MEDS: metFORMIN HCl 1,000 MG TABLET 1000 MG PO (09:15)
[2022-01-04] MEDS: Levothyroxine Sodium 50 MCG TABLET PO (09:15)
[2022-01-04 09:21] LABS: Alanine Aminotransferase 42 U/L (0-40); Albumin Level 4.1 g/dL (3.5-5.0); Alkaline Phosphatase 29 U/L (39-117); Anion Gap 15 (12-20); Aspartate Amino Transferase 32 U/L (5-37); Bilirubin Direct 0.2 mg/dL (0.0-0.5); Bilirubin Total 0.6 mg/dL (0.0-1.0); Blood Urea Nitrogen 28 mg/dL (9-16); Calcium 9.2 mg/dL (8.4-10.2); Carbon Dioxide 28 mmol/L (22-29); Chloride 104 mmol/L (96-108); Creatinine Clr Calc Pharmacy 63.6; Estimated Glomerular Filt Rate 52; Glucose Random 135 mg/dL (60-115); Potassium 4.6 mmol/L (3.3-5.1); Sodium 142 mmol/L (135-145)
[2022-01-04 10:22] LABS: Carbamazepine Tegretol 7.2 mcg/mL (5.0-12.0)
--- NOTE | 2022-01-04 15:00 | P.PNPSI_ITS ---
Subjective Subjective Date of Service: 01/04/22 Reason For Visit: perla Interim History: calm, cooperative, subdued. lab results reviewed, need to F/U on WBC counts post-discharge. pt asking about having DC summary sent to his MDs. informed pt he seems to be doing well and that if current trend continues we can plan for discharge next friday. pt had minimal reaction to that. per staff, minimal participation, irritable. attend 2 groups yesterday. eating and sleeping well. isolative. less labile, in good control. no sexualized talk/behaviors. Mental Status Exam Mental Status Exam Narrative: Alert. He is overweight/ obese, adequately dressed and groomed. good eye cont act, attentive. No Tics or Tremors. No abnormal involuntary movements. calm, cooperative. Non-pressured speech, spontaneous with regular rate and rhythm, normal volume and prosody. No prolonged speech latency or dysarthria. affect is normo-intense, constricted, non-labile. no SI/SIB/HI/AVH expressed. Thoughts are linear and logical. cognitive impairment is suspected but has not been diagnosed; pt does not recall his concerning behaviors of earlier in the stay. Insight/ Judgment poor. Diagnostics Vital Signs (24Hr): Vital Signs - 24 hr 01/03/22 20:45 01/04/22 09:12 Temperature 97.8 F 96.4 F L Pulse Rate 82 70 Respiratory Rate 18 18 Blood Pressure 119/78 130/80 Pulse Oximetry 98 100 Oxygen Delivery Method Room Air Room Air BMI result Body Mass Index 40.9 Labs Results: 01/04/22 08:45 01/04/22 08:45 Labs: Laboratory Results - last 48 hr 01/02/22 01/03/22 01/03/22 21:28 09:19 20:44 WBC RBC Hgb Hct MCV MCH MCHC RDW Plt Count MPV Immature Gran % (Auto) Neut % (Auto) Lymph % (Auto) [place] % (Auto) Eos % (Auto) Baso % (Auto) Lymph # (Auto) [place] # (Auto) Eos # (Auto) Baso # (Auto) Abs Immat Gran (auto) Absolute Neuts (auto) Absolute Nucleated RBC Nucleated RBC % (auto) Sodium Potassium Chloride Carbon Dioxide Anion Gap BUN Creatinine Estim Creat Clear Calc Estimated GFR POC Glucose 163 H 126 H 145 H Random Glucose Calcium Total Bilirubin Direct Bilirubin AST ALT Alkaline Phosphatase Total Protein Albumin Carbamazepine 01/04/22 01/04/22 01/04/22 08:45 08:45 08:45 WBC 4.4 L RBC 4.17 L Hgb 13.6 L Hct 39.4 L MCV 94.5 MCH 32.6 MCHC 34.5 RDW 12.3 Plt Count 186 MPV 10.5 Immature Gran % (Auto) 0.2 Neut % (Auto) 33.5 L Lymph % (Auto) 50.5 H [place] % (Auto) 10.4 Eos % (Auto) 4.7 H Baso % (Auto) 0.7 Lymph # (Auto) 2.2 [place] # (Auto) 0.5 Eos # (Auto) 0.2 Baso # (Auto) 0.0 Abs Immat Gran (auto) 0.01 Absolute Neuts (auto) 1.5 L Absolute Nucleated RBC 0.000 Nucleated RBC % (auto) 0.0 Sodium 142 Potassium 4.6 Chloride 104 Carbon Dioxide 28 Anion Gap 15 BUN 28 H Creatinine 1.35 Estim Creat Clear Calc 63.6 Estimated GFR 52 POC Glucose Random Glucose 135 H Calcium 9.2 Total Bilirubin 0.6 Direct Bilirubin 0.2 AST 32 ALT 42 H Alkaline Phosphatase 29 L Total Protein 7.0 Albumin 4.1 Carbamazepine 7.2 01/04/22 08:48 WBC RBC Hgb Hct MCV MCH MCHC RDW Plt Count MPV Immature Gran % (Auto) Neut % (Auto) Lymph % (Auto) [place] % (Auto) Eos % (Auto) Baso % (Auto) Lymph # (Auto) [place] # (Auto) Eos # (Auto) Baso # (Auto) Abs Immat Gran (auto) Absolute Neuts (auto) Absolute Nucleated RBC Nucleated RBC % (auto) Sodium Potassium Chloride Carbon Dioxide Anion Gap BUN Creatinine Estim Creat Clear Calc Estimated GFR POC Glucose 109 Random Glucose Calcium Total Bilirubin Direct Bilirubin AST ALT Alkaline Phosphatase Total Protein Albumin Carbamazepine Imaging Radiology Impressions: ITS Impressions Foot X-Ray 12/21/21 13:55 IMPRESSION: No fracture seen. Medications Medications Current Medications Acetaminophen (Acetaminophen 325 Mg Tablet) 650 mg PO Q6H PRN PRN Reason: Headache/Pain Mild Scale (1-3) Al Hydroxide/Mg Hydroxide (Magnesium Hydrox/Alum Hydrox 30 Ml Oral.Susp) 30 ml PO Q6H PRN PRN Reason: Heartburn/Nausea Last Admin: 12/24/21 17:54 Dose: 30 ml Amlodipine Besylate (Amlodipine Besylate 10 Mg Tablet) 10 mg PO DAILY [facility]; Protocol Last Admin: 01/04/22 09:14 Dose: 10 mg Aspirin (Aspirin Enteric Coated 81 Mg Tablet.Dr) 81 mg PO DAILY [facility] Last Admin: 01/04/22 09:14 Dose: 81 mg Atorvastatin Calcium (Atorvastatin Calcium 10 Mg Tablet) 10 mg PO BEDTIME [facility] Last Admin: 01/03/22 20:39 Dose: 10 mg Carbamazepine (Carbamazepine Er 200 Mg Tab.Er.12h) 400 mg PO BID [facility] Last Admin: 01/04/22 09:12 Dose: 400 mg Fenofibrate (Fenofibrate 160 Mg Tablet) 160 mg PO DAILY [facility] Last Admin: 01/04/22 09:14 Dose: 160 mg Gabapentin (Gabapentin 300 Mg Capsule) 300 mg PO BEDTIME [facility] Last Admin: 01/03/22 20:39 Dose: 300 mg Glipizide (Glipizide 5 Mg Tablet) 5 mg PO DAILY [facility] Last Admin: 01/04/22 09:15 Dose: 5 mg Hydrochlorothiazide (Hydrochlorothiazide 25 Mg Tablet) 25 mg PO DAILY [facility]; Protocol Last Admin: 01/04/22 09:14 Dose: 25 mg Hydroxyzine HCl (Hydroxyzine Hcl 25 Mg Tablet) 25 mg PO Q6H PRN PRN Reason: Anxiety Last Admin: 12/22/21 21:56 Dose: 25 mg Levothyroxine Sodium (Levothyroxine Sodium 50 Mcg Tablet) 50 mcg PO DAILY@0630 [facility] Last Admin: 01/04/22 09:15 Dose: 50 mcg Lisinopril (Lisinopril 40 Mg Tablet) 40 mg PO DAILY [facility]; Protocol Last Admin: 01/04/22 09:13 Dose: 40 mg Magnesium Hydroxide (Milk Of Magnesia 30 Ml Oral.Susp) 30 ml PO DAILY PRN PRN Reason: Constipation Metformin HCl (Metformin Hcl 1,000 Mg Tablet) 1,000 mg PO DAILY [facility] Last Admin: 01/04/22 09:15 Dose: 1,000 mg Metoprolol Succinate (Metoprolol Succinate Er 100 Mg Tab.Er.24h) 200 mg PO BEDTIME [facility]; Protocol Last Admin: 01/03/22 20:39 Dose: 200 mg Multi-Ingred Cream/Lotion/Oil/Oint (Mineral Oil/Petrolatum,White 106 Gm Tube) 1 appl TOPICAL BID ED Last Admin: 01/04/22 10:12 Dose: Not Given Nicotine Polacrilex (Nicotine Polacrilex 2 Mg Gum) 2 mg BUCCAL Q2H PRN PRN Reason: Nicotine Cravings Quetiapine Fumarate (Quetiapine Fumarate 300 Mg Tablet) 600 mg PO BEDTIME ED Last Admin: 01/03/22 20:39 Dose: 600 mg Trazodone HCl (Trazodone Hcl 50 Mg Tablet) 50 mg PO BEDTIME PRN PRN Reason: Insomnia Last Admin: 01/01/22 20:51 Dose: 50 mg Vitamin D (Cholecalciferol (Vitamin D3) 25 Mcg Tablet) 25 mcg PO DAILY ED Last Admin: 01/04/22 09:14 Dose: 25 mcg Allergies Allergies Allergy/AdvReac Type Severity Reaction Status Date / Time No Known Allergies Allergy Verified 12/19/21 16:24 Assessment & Plan Assessment & Plan (1) Bipolar 1 disorder: Status: Acute Code(s): F31.9 - Bipolar disorder, unspecified Plan Wade is a 71 y.o. male who carries a dx of bipolar I disorder. He is [place] speaking. He presented to [facility] on 12/19/21 upon son?s request due to manic presentation x 1 week i.e. not sleeping, up all night, hyperactive, bizarre behaviors (flooded the bathroom, rearranging things in the home, talking to his family as if 30 years have passed, drawing on the [place]ina), and disinhibition. He has been med adherent. Unclear precipitating factor. Hx of multiple psych inpatient admissions and long hx of bipolar symptomatology. 12/20: obtain MOCA from OT once perla has resolved. decreased lexapro to 15 mg HS due to relative contraindication for bipolar spectrum disorder. Obtain further collateral info. 12/21: pt Rxed tegretol 200/400 outpt, which he apparently has not been taking. watch cells counts, Na, and LFTs. some renal impairment as well. 12/22 stop lexapro. continue other medications 12/23 continue tx. 12/24: continue current mgmt. contact collateral for opinion of nearness to baseline. remains impulsive with poor boundaries, apparently having touched male peer's abd and asked him if he is . 12/25: yesterday pt made inappropriate comments to SW regarding her physical person. no touching in the past 24H. calm and cooperative. declined MoCA with OT. 12/26: stable, hypersexual approach to females continues. med-compliant. threatened to punch male staff who was on 1:1 with him for remaining within 1 meter of him. check labs friday. 12/27: inappropriate comments to female staff re her body, exposed himself to roommate and female RN last night. single room with 1:1 when outside of room, otherwise continue current mgmt. check tegretol level and associated labs tomorrow. 12/28: labs trending improved from admission labs, tegretol level 7+. increase tegretol to 400 BID. inappropriate remarks to females regarding the attractiveness of their bodies continue. 12/29 Continue current treatment plan 12/30 Continue with treatment plan 12/31: continue current mgmt. son sharonda provided collateral info to . salacious proposals and comments continue. 01/01: change OBS to CO. otherwise continue current mgmt. no sexualized talk/behavior in the past day. 01/02: continue CO with plan to move to Q5 min checks tomorrow if current trajectory holds. otherwise continue current mgmt. no sexualized talk/behavior in the past day (now 2 day streak). 01/03: remains abstinent from sexualized talk or approach behaviors. changed to Q5 min checks. otherwise current mgmt continued. 01/04: more subdued, no sexualized behaviors. daily incremental improvement. discussed discharge next friday if trajectory holds. I spent ___25___ minutes with the patient and/or on the patient floor today, greater than?50% of which was spent counseling/coordinating care. Reason for contiued inpatient stay Substantial Risk for: harm to self, harm to others, inability to function and rapid decompensation
[2022-01-04 21:08] VITALS: BP 145/79; PULSE 76; RESP 18; TEMP 36.3; O2SAT 97
[2022-01-04 21:16] LABS: Glucose, Whole Blood 160 mg/dL (60-115)
[2022-01-04] MEDS: Atorvastatin Calcium 10 MG TABLET PO (21:16)
[2022-01-04] MEDS: Gabapentin 300 MG CAPSULE PO (21:16)
[2022-01-04] MEDS: QUEtiapine Fumarate 300 MG TABLET 600 MG PO (21:16)
[2022-01-04] MEDS: Metoprolol Succinate ER 100 MG TAB.ER.24H 200 MG PO (21:16)
[2022-01-05 06:00] VITALS: BP 133/68; PULSE 72; RESP 18; TEMP 36.8; O2SAT 98
[2022-01-05] MEDS: Cholecalciferol (Vitamin D3) 25 MCG TABLET PO (09:22)
[2022-01-05] MEDS: lisinopriL 40 MG TABLET PO (09:22)
[2022-01-05] MEDS: hydroCHLOROthiazide 25 MG TABLET PO (09:22)
[2022-01-05] MEDS: Aspirin Enteric Coated 81 MG TABLET.DR PO (09:22)
[2022-01-05] MEDS: amLODIPine Besylate 10 MG TABLET PO (09:22)
[2022-01-05 09:23] LABS: Glucose, Whole Blood 134 mg/dL (60-115)
[2022-01-05] MEDS: Levothyroxine Sodium 50 MCG TABLET PO (09:23)
[2022-01-05] MEDS: carBAMazepine ER 200 MG TAB.ER.12H 400 MG PO ×2 (09:23→21:13)
[2022-01-05] MEDS: metFORMIN HCl 1,000 MG TABLET 1000 MG PO (09:23)
[2022-01-05] MEDS: Fenofibrate 160 MG TABLET PO (09:27)
[2022-01-05] MEDS: glipiZIDE 5 MG TABLET PO (09:28)
--- NOTE | 2022-01-05 17:51 | P.PNPSI_ITS ---
Subjective Subjective Date of Service: 01/05/22 Reason For Visit: perla Interim History: calm, cooperative. less irritable. saw yesterday and son today. no complaints or requests. discuss that if current trajectory is maintained, he is likely to discharge on friday. per staff, visible, walking the halls. low mood. safe. no inappropriate comments. Mental Status Exam Mental Status Exam Narrative: Alert. He is overweight/ obese, adequately dressed and groomed. good eye contact, attentive. No Tics or Tremors. No abnormal involuntary movements. calm, cooperative. Non-pressured speech, spontaneous with regular rate and rhythm, normal volume and prosody. No prolonged speech latency or dysarthria. affect is normo-intense, constricted, non-labile. no SI/SIB/HI/AVH expressed. Thoughts are linear and logical. cognitive impairment is suspected but has not been diagnosed; pt does not recall his concerning behaviors of earlier in the stay. Insight/ Judgment poor. Diagnostics Vital Signs (24Hr): Vital Signs - 24 hr 01/04/22 21:08 01/05/22 06:00 Temperature 97.4 F 98.3 F Pulse Rate 76 72 Respiratory Rate 18 18 Blood Pressure 145/79 H 133/68 Pulse Oximetry 97 98 Oxygen Delivery Method Room Air Room Air BMI result Body Mass Index 40.9 Labs Results: 01/04/22 08:45 01/04/22 08:45 Labs: Laboratory Results - last 48 hr 01/03/22 01/04/22 01/04/22 20:44 08:45 08:45 WBC 4.4 L RBC 4.17 L Hgb 13.6 L Hct 39.4 L MCV 94.5 MCH 32.6 MCHC 34.5 RDW 12.3 Plt Count 186 MPV 10.5 Immature Gran % (Auto) 0.2 Neut % (Auto) 33.5 L Lymph % (Auto) 50.5 H [place] % (Auto) 10.4 Eos % (Auto) 4.7 H Baso % (Auto) 0.7 Lymph # (Auto) 2.2 [place] # (Auto) 0.5 Eos # (Auto) 0.2 Baso # (Auto) 0.0 Abs Immat Gran (auto) 0.01 Absolute Neuts (auto) 1.5 L Absolute Nucleated RBC 0.000 Nucleated RBC % (auto) 0.0 Sodium 142 Potassium 4.6 Chloride 104 Carbon Dioxide 28 Anion Gap 15 BUN 28 H Creatinine 1.35 Estim Creat Clear Calc 63.6 Estimated GFR 52 POC Glucose 145 H Random Glucose 135 H Calcium 9.2 Total Bilirubin 0.6 Direct Bilirubin 0.2 AST 32 ALT 42 H Alkaline Phosphatase 29 L Total Protein 7.0 Albumin 4.1 Carbamazepine 01/04/22 01/04/22 01/04/22 08:45 08:48 21:12 WBC RBC Hgb Hct MCV MCH MCHC RDW Plt Count MPV Immature Gran % (Auto) Neut % (Auto) Lymph % (Auto) [place] % (Auto) Eos % (Auto) Baso % (Auto) Lymph # (Auto) [place] # (Auto) Eos # (Auto) Baso # (Auto) Abs Immat Gran (auto) Absolute Neuts (auto) Absolute Nucleated RBC Nucleated RBC % (auto) Sodium Potassium Chloride Carbon Dioxide Anion Gap BUN Creatinine Estim Creat Clear Calc Estimated GFR POC Glucose 109 160 H Random Glucose Calcium Total Bilirubin Direct Bilirubin AST ALT Alkaline Phosphatase Total Protein Albumin Carbamazepine 7.2 01/05/22 09:15 WBC RBC Hgb Hct MCV MCH MCHC RDW Plt Count MPV Immature Gran % (Auto) Neut % (Auto) Lymph % (Auto) [place] % (Auto) Eos % (Auto) Baso % (Auto) Lymph # (Auto) [place] # (Auto) Eos # (Auto) Baso # (Auto) Abs Immat Gran (auto) Absolute Neuts (auto) Absolute Nucleated RBC Nucleated RBC % (auto) Sodium Potassium Chloride Carbon Dioxide Anion Gap BUN Creatinine Estim Creat Clear Calc Estimated GFR POC Glucose 134 H Random Glucose Calcium Total Bilirubin Direct Bilirubin AST ALT Alkaline Phosphatase Total Protein Albumin Carbamazepine Imaging Radiology Impressions: ITS Impressions Foot X-Ray 12/21/21 13:55 IMPRESSION: No fracture seen. Medications Medications Current Medications Acetaminophen (Acetaminophen 325 Mg Tablet) 650 mg PO Q6H PRN PRN Reason: Headache/Pain Mild Scale (1-3) Al Hydroxide/Mg Hydroxide (Magnesium Hydrox/Alum Hydrox 30 Ml Oral.Susp) 30 ml PO Q6H PRN PRN Reason: Heartburn/Nausea Last Admin: 12/24/21 17:54 Dose: 30 ml Amlodipine Besylate (Amlodipine Besylate 10 Mg Tablet) 10 mg PO DAILY ED; Protocol Last Admin: 01/05/22 09:22 Dose: 10 mg Aspirin (Aspirin Enteric Coated 81 Mg Tablet.Dr) 81 mg PO DAILY [facility] Last Admin: 01/05/22 09:22 Dose: 81 mg Atorvastatin Calcium (Atorvastatin Calcium 10 Mg Tablet) 10 mg PO BEDTIME [facility] Last Admin: 01/04/22 21:16 Dose: 10 mg Carbamazepine (Carbamazepine Er 200 Mg Tab.Er.12h) 400 mg PO BID [facility] Last Admin: 01/05/22 09:23 Dose: 400 mg Fenofibrate (Fenofibrate 160 Mg Tablet) 160 mg PO DAILY [facility] Last Admin: 01/05/22 09:27 Dose: 160 mg Gabapentin (Gabapentin 300 Mg Capsule) 300 mg PO BEDTIME [facility] Last Admin: 01/04/22 21:16 Dose: 300 mg Glipizide (Glipizide 5 Mg Tablet) 5 mg PO DAILY [facility] Last Admin: 01/05/22 09:28 Dose: 5 mg Hydrochlorothiazide (Hydrochlorothiazide 25 Mg Tablet) 25 mg PO DAILY [facility]; Protocol Last Admin: 01/05/22 09:22 Dose: 25 mg Hydroxyzine HCl (Hydroxyzine Hcl 25 Mg Tablet) 25 mg PO Q6H PRN PRN Reason: Anxiety Last Admin: 12/22/21 21:56 Dose: 25 mg Levothyroxine Sodium (Levothyroxine Sodium 50 Mcg Tablet) 50 mcg PO DAILY@0630 [facility] Last Admin: 01/05/22 09:23 Dose: 50 mcg Lisinopril (Lisinopril 40 Mg Tablet) 40 mg PO DAILY [facility]; Protocol Last Admin: 01/05/22 09:22 Dose: 40 mg Magnesium Hydroxide (Milk Of Magnesia 30 Ml Oral.Susp) 30 ml PO DAILY PRN PRN Reason: Constipation Metformin HCl (Metformin Hcl 1,000 Mg Tablet) 1,000 mg PO DAILY [facility] Last Admin: 01/05/22 09:23 Dose: 1,000 mg Metoprolol Succinate (Metoprolol Succinate Er 100 Mg Tab.Er.24h) 200 mg PO BEDTIME [facility]; Protocol Last Admin: 01/04/22 21:16 Dose: 200 mg Multi-Ingred Cream/Lotion/Oil/Oint (Mineral Oil/Petrolatum,White 106 Gm Tube) 1 appl TOPICAL BID [facility] Last Admin: 01/05/22 09:28 Dose: Not Given Nicotine Polacrilex (Nicotine Polacrilex 2 Mg Gum) 2 mg BUCCAL Q2H PRN PRN Reason: Nicotine Cravings Quetiapine Fumarate (Quetiapine Fumarate 300 Mg Tablet) 600 mg PO BEDTIME ED Last Admin: 01/04/22 21:16 Dose: 600 mg Trazodone HCl (Trazodone Hcl 50 Mg Tablet) 50 mg PO BEDTIME PRN PRN Reason: Insomnia Last Admin: 01/01/22 20:51 Dose: 50 mg Vitamin D (Cholecalciferol (Vitamin D3) 25 Mcg Tablet) 25 mcg PO DAILY ED Last Admin: 01/05/22 09:22 Dose: 25 mcg Allergies Allergies Allergy/AdvReac Type Severity Reaction Status Date / Time No Known Allergies Allergy Verified 12/19/21 16:24 Assessment & Plan Assessment & Plan (1) Bipolar 1 disorder: Status: Acute Code(s): F31.9 - Bipolar disorder, unspecified Plan Wade is a 71 y.o. male who carries a dx of bipolar I disorder. He is [place] speaking. He presented to [facility] on 12/19/21 upon son?s request due to manic presentation x 1 week i.e. not sleeping, up all night, hyperactive, bizarre behaviors (flooded the bathroom, rearranging things in the home, talking to his family as if 30 years have passed, drawing on the [place]), and disinhibition. He has been med adherent. Unclear precipitating factor. Hx of multiple psych inpatient admissions and long hx of bipolar symptomatology. 12/20: obtain MOCA from OT once perla has resolved. decreased lexapro to 15 mg HS due to relative contraindication for bipolar spectrum disorder. Obtain further collateral info. 12/21: pt Rxed tegretol 200/400 outpt, which he apparently has not been taking. watch cells counts, Na, and LFTs. some renal impairment as well. 12/22 stop lexapro. continue other medications 12/23 continue tx. 12/24: continue current mgmt. contact collateral for opinion of nearness to baseline. remains impulsive with poor boundaries, apparently having touched male peer's abd and asked him if he is . 12/25: yesterday pt made inappropriate comments to SW regarding her physical person. no touching in the past 24H. calm and cooperative. declined MoCA with OT. 12/26: stable, hypersexual approach to females continues. med-compliant. threatened to punch male staff who was on 1:1 with him for remaining within 1 meter of him. check labs friday. 12/27: inappropriate comments to female staff re her body, exposed himself to roommate and female RN last night. single room with 1:1 when outside of room, otherwise continue current mgmt. check tegretol level and associated labs tomorrow. 12/28: labs trending improved from admission labs, tegretol level 7+. increase tegretol to 400 BID. inappropriate remarks to females regarding the attractiveness of their bodies continue. 12/29 Continue current treatment plan 12/30 Continue with treatment plan 12/31: continue current mgmt. son sharonda provided collateral info to MD. sherri reid proposals and comments continue. 01/01: change OBS to CO. otherwise continue current mgmt. no sexualized talk/behavior in the past day. 01/02: continue CO with plan to move to Q5 min checks tomorrow if current trajectory holds. otherwise continue current mgmt. no sexualized talk/behavior in the past day (now 2 day streak). 01/03: remains abstinent from sexualized talk or approach behaviors. changed to Q5 min checks. otherwise current mgmt continued. 01/04: more subdued, no sexualized behaviors. daily incremental improvement. discussed discharge next friday if trajectory holds. 01/05: remains more subdued, no sexualized behaviors. daily incremental improvement. discussed discharge next friday if trajectory holds. I spent ___15___ minutes with the patient and/or on the patient floor today, greater than?50% of which was spent counseling/coordinating care. Reason for contiued inpatient stay Substantial Risk for: harm to others and med/psych decompensation
[2022-01-05 21:06] VITALS: BP 128/59; PULSE 81; RESP 16; TEMP 36.3; O2SAT 96
[2022-01-05] MEDS: Atorvastatin Calcium 10 MG TABLET PO (21:13)
[2022-01-05] MEDS: Metoprolol Succinate ER 100 MG TAB.ER.24H 200 MG PO (21:13)
[2022-01-05] MEDS: Gabapentin 300 MG CAPSULE PO (21:13)
[2022-01-05] MEDS: QUEtiapine Fumarate 300 MG TABLET 600 MG PO (21:13)
[2022-01-06 09:30] VITALS: BP 124/72; PULSE 64; RESP 16; TEMP 36.6; O2SAT 99
[2022-01-06] MEDS: hydroCHLOROthiazide 25 MG TABLET PO (09:33)
[2022-01-06] MEDS: carBAMazepine ER 200 MG TAB.ER.12H 400 MG PO ×2 (09:33→21:09)
[2022-01-06] MEDS: Aspirin Enteric Coated 81 MG TABLET.DR PO (09:33)
[2022-01-06] MEDS: amLODIPine Besylate 10 MG TABLET PO (09:33)
[2022-01-06] MEDS: metFORMIN HCl 1,000 MG TABLET 1000 MG PO (09:33)
[2022-01-06] MEDS: Cholecalciferol (Vitamin D3) 25 MCG TABLET PO (09:33)
[2022-01-06] MEDS: Levothyroxine Sodium 50 MCG TABLET PO (09:33)
[2022-01-06] MEDS: lisinopriL 40 MG TABLET PO (09:34)
[2022-01-06] MEDS: glipiZIDE 5 MG TABLET PO (09:34)
[2022-01-06] MEDS: Fenofibrate 160 MG TABLET PO (09:34)
[2022-01-06 18:00] VITALS: BP 141/77; PULSE 86; RESP 16; TEMP 36.4; O2SAT 96
--- NOTE | 2022-01-06 18:18 | P.PNPSI_ITS ---
Subjective Subjective Date of Service: 01/06/22 Reason For Visit: perla Interim History: calm, cooperative. mood OK. no requests or complaints. has had contact with family over the weekend. planning to discharge friday. per staff, POC 134. mood good. but appears depressed. sleeping, eating. Mental Status Exam Mental Status Exam Narrative: Alert. He is overweight/ obese, adequately dressed and groomed. good eye contact, attentive. No Tics or Tremors. No abnormal involuntary movements. calm, cooperative. Non-pressured speech, spontaneous with regular rate and rhythm, no rmal volume and prosody. No prolonged speech latency or dysarthria. affect is normo-intense, constricted, non-labile. mood OK. no SI/SIB/HI/AVH expressed. Thoughts are linear and logical. cognitive impairment is suspected but has not been diagnosed; pt does not recall his concerning behaviors of earlier in the stay. Insight/ Judgment poor. Diagnostics Vital Signs (24Hr): Vital Signs - 24 hr 01/05/22 21:06 01/06/22 09:30 Temperature 97.4 F 97.9 F Pulse Rate 81 64 Respiratory Rate 16 16 Blood Pressure 128/59 L 124/72 Pulse Oximetry 96 99 Oxygen Delivery Method Room Air Room Air BMI result Body Mass Index 40.9 Labs Results: 01/04/22 08:45 01/04/22 08:45 Labs: Laboratory Results - last 48 hr 01/04/22 01/05/22 21:12 09:15 POC Glucose 160 H 134 H Imaging Radiology Impressions: ITS Impressions Foot X-Ray 12/21/21 13:55 IMPRESSION: No fracture seen. Medications Medications Current Medications Acetaminophen (Acetaminophen 325 Mg Tablet) 650 mg PO Q6H PRN PRN Reason: Headache/Pain Mild Scale (1-3) Al Hydroxide/Mg Hydroxide (Magnesium Hydrox/Alum Hydrox 30 Ml Oral.Susp) 30 ml PO Q6H PRN PRN Reason: Heartburn/Nausea Last Admin: 12/24/21 17:54 Dose: 30 ml Amlodipine Besylate (Amlodipine Besylate 10 Mg Tablet) 10 mg PO DAILY [facility]; Protocol Last Admin: 01/06/22 09:33 Dose: 10 mg Aspirin (Aspirin Enteric Coated 81 Mg Tablet.) 81 mg PO DAILY [facility] Last Admin: 01/06/22 09:33 Dose: 81 mg Atorvastatin Calcium (Atorvastatin Calcium 10 Mg Tablet) 10 mg PO BEDTIME [facility] Last Admin: 01/05/22 21:13 Dose: 10 mg Carbamazepine (Carbamazepine Er 200 Mg Tab.Er.12h) 400 mg PO BID [facility] Last Admin: 01/06/22 09:33 Dose: 400 mg Fenofibrate (Fenofibrate 160 Mg Tablet) 160 mg PO DAILY [facility] Last Admin: 01/06/22 09:34 Dose: 160 mg Gabapentin (Gabapentin 300 Mg Capsule) 300 mg PO BEDTIME [facility] Last Admin: 01/05/22 21:13 Dose: 300 mg Glipizide (Glipizide 5 Mg Tablet) 5 mg PO DAILY [facility] Last Admin: 01/06/22 09:34 Dose: 5 mg Hydrochlorothiazide (Hydrochlorothiazide 25 Mg Tablet) 25 mg PO DAILY [facility]; Protocol Last Admin: 01/06/22 09:33 Dose: 25 mg Hydroxyzine HCl (Hydroxyzine Hcl 25 Mg Tablet) 25 mg PO Q6H PRN PRN Reason: Anxiety Last Admin: 12/22/21 21:56 Dose: 25 mg Levothyroxine Sodium (Levothyroxine Sodium 50 Mcg Tablet) 50 mcg PO DAILY@0630 [facility] Last Admin: 01/06/22 09:33 Dose: 50 mcg Lisinopril (Lisinopril 40 Mg Tablet) 40 mg PO DAILY [facility]; Protocol Last Admin: 01/06/22 09:34 Dose: 40 mg Magnesium Hydroxide (Milk Of Magnesia 30 Ml Oral.Susp) 30 ml PO DAILY PRN PRN Reason: Constipation Metformin HCl (Metformin Hcl 1,000 Mg Tablet) 1,000 mg PO DAILY [facility] Last Admin: 01/06/22 09:33 Dose: 1,000 mg Metoprolol Succinate (Metoprolol Succinate Er 100 Mg Tab.Er.24h) 200 mg PO BEDTIME [facility]; Protocol Last Admin: 01/05/22 21:13 Dose: 200 mg Multi-Ingred Cream/Lotion/Oil/Oint (Mineral Oil/Petrolatum,White 106 Gm Tube) 1 appl TOPICAL BID [facility] Last Admin: 01/06/22 10:44 Dose: Not Given Nicotine Polacrilex (Nicotine Polacrilex 2 Mg Gum) 2 mg BUCCAL Q2H PRN PRN Reason: Nicotine Cravings Quetiapine Fumarate (Quetiapine Fumarate 300 Mg Tablet) 600 mg PO BEDTIME [facility] Last Admin: 01/05/22 21:13 Dose: 600 mg Trazodone HCl (Trazodone Hcl 50 Mg Tablet) 50 mg PO BEDTIME PRN PRN Reason: Insomnia Last Admin: 01/01/22 20:51 Dose: 50 mg Vitamin D (Cholecalciferol (Vitamin D3) 25 Mcg Tablet) 25 mcg PO DAILY ED Last Admin: 01/06/22 09:33 Dose: 25 mcg Allergies Allergies Allergy/AdvReac Type Severity Reaction Status Date / Time No Known Allergies Allergy Verified 12/19/21 16:24 Assessment & Plan Assessment & Plan (1) Bipolar 1 disorder: Status: Acute Code(s): F31.9 - Bipolar disorder, unspecified Plan Wade is a 71 y.o. male who carries a dx of bipolar I disorder. He is [place] speaking. He presented to [facility] ED on 12/19/21 upon son?s request due to manic presentation x 1 week i.e. not sleeping, up all night, hyperactive, bizarre behaviors (flooded the bathroom, rearranging things in the home, talking to his family as if 30 years have passed, drawing on the [place]), and disinhibition. He has been med adherent. Unclear precipitating factor. Hx of multiple psych inpatient admissions and long hx of bipolar symptomatology. 12/20: obtain MOCA from OT once perla has resolved. decreased lexapro to 15 mg HS due to relative contraindication for bipolar spectrum disorder. Obtain further collateral info. 12/21: pt Rxed tegretol 200/400 outpt, which he apparently has not been taking. watch cells counts, Na, and LFTs. some renal impairment as well. 12/22 stop lexapro. continue other medications 12/23 continue tx. 12/24: continue current mgmt. contact collateral for opinion of nearness to baseline. remains impulsive with poor boundaries, apparently having touched male peer's abd and asked him if he is . 12/25: yesterday pt made inappropriate comments to SW regarding her physical person. no touching in the past 24H. calm and cooperative. declined MoCA with OT. 12/26: stable, hypersexual approach to females continues. med-compliant. threatened to punch male staff who was on 1:1 with him for remaining within 1 meter of him. check labs friday. 12/27: inappropriate comments to female staff re her body, exposed himself to roommate and female RN last night. single room with 1:1 when outside of room, otherwise continue current mgmt. check tegretol level and associated labs tomorrow. 12/28: labs trending improved from admission labs, tegretol level 7+. increase tegretol to 400 BID. inappropriate remarks to females regarding the attractiveness of their bodies continue. 12/29 Continue current treatment plan 12/30 Continue with treatment plan 12/31: continue current mgmt. son sharonda provided collateral info to . salacious proposals and comments continue. 01/01: change OBS to CO. otherwise continue current mgmt. no sexualized talk/behavior in the past day. 01/02: continue CO with plan to move to Q5 min checks tomorrow if current trajectory holds. otherwise continue current mgmt. no sexualized talk/behavior in the past day (now 2 day streak). 01/03: remains abstinent from sexualized talk or approach behaviors. changed to Q5 min checks. otherwise current mgmt continued. 01/04: more subdued, no sexualized behaviors. daily incremental improvement. discussed discharge next friday if trajectory holds. 01/05: remains more subdued, no sexualized behaviors. daily incremental improvement. discussed discharge next friday if trajectory holds. 01/06: remains abstinent from sexualized comments/behaviors. planning for friday discharge. no longer angry/irritable. I spent __15____ minutes with the patient and/or on the patient floor today, greater than?50% of which was spent counseling/coordinating care. Reason for contiued inpatient stay Substantial Risk for: inability to function and med/psych decompensation
[2022-01-06] MEDS: Gabapentin 300 MG CAPSULE PO (21:08)
[2022-01-06] MEDS: QUEtiapine Fumarate 300 MG TABLET 600 MG PO (21:09)
[2022-01-06] MEDS: Metoprolol Succinate ER 100 MG TAB.ER.24H 200 MG PO (21:09)
[2022-01-06] MEDS: Atorvastatin Calcium 10 MG TABLET PO (21:09)
[2022-01-06 21:31] LABS: Glucose, Whole Blood 240 mg/dL (60-115)
[2022-01-07] MEDS: traZODone HCL 50 MG TABLET PO (01:02)
[2022-01-07] MEDS: hydrOXYzine HCL 25 MG TABLET PO (01:02)
[2022-01-07 08:35] VITALS: BP 117/63; PULSE 63; TEMP 36.6; O2SAT 99
[2022-01-07] MEDS: hydroCHLOROthiazide 25 MG TABLET PO (08:36)
[2022-01-07] MEDS: Aspirin Enteric Coated 81 MG TABLET.DR PO (08:36)
[2022-01-07] MEDS: amLODIPine Besylate 10 MG TABLET PO (08:36)
[2022-01-07] MEDS: lisinopriL 40 MG TABLET PO (08:36)
[2022-01-07] MEDS: Levothyroxine Sodium 50 MCG TABLET PO (08:37)
[2022-01-07] MEDS: carBAMazepine ER 200 MG TAB.ER.12H 400 MG PO ×2 (08:37→20:57)
[2022-01-07] MEDS: Fenofibrate 160 MG TABLET PO (08:38)
[2022-01-07] MEDS: Cholecalciferol (Vitamin D3) 25 MCG TABLET PO (08:38)
[2022-01-07] MEDS: glipiZIDE 5 MG TABLET PO (08:38)
[2022-01-07] MEDS: metFORMIN HCl 1,000 MG TABLET 1000 MG PO (08:38)
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
[2022-01-07] MEDS: Gabapentin 300 MG CAPSULE PO (20:57)
[2022-01-07] MEDS: QUEtiapine Fumarate 300 MG TABLET 600 MG PO (20:57)
[2022-01-07] MEDS: Metoprolol Succinate ER 100 MG TAB.ER.24H 200 MG PO (20:57)
[2022-01-07] MEDS: Atorvastatin Calcium 10 MG TABLET PO (20:57)
[2022-01-07 21:00] VITALS: BP 128/65; PULSE 79; RESP 18; TEMP 36.6; O2SAT 96
[2022-01-08] MEDS: traZODone HCL 50 MG TABLET PO (00:21)
[2022-01-08 08:00] VITALS: BP 120/85; PULSE 64; RESP 18; TEMP 36.5; O2SAT 99
[2022-01-08 08:37] LABS: Glucose, Whole Blood 147 mg/dL (60-115)
[2022-01-08] MEDS: metFORMIN HCl 1,000 MG TABLET 1000 MG PO (08:42)
[2022-01-08] MEDS: lisinopriL 40 MG TABLET PO (08:43)
[2022-01-08] MEDS: glipiZIDE 5 MG TABLET PO (08:43)
[2022-01-08] MEDS: Aspirin Enteric Coated 81 MG TABLET.DR PO (08:43)
[2022-01-08] MEDS: Fenofibrate 160 MG TABLET PO (08:44)
[2022-01-08] MEDS: carBAMazepine ER 200 MG TAB.ER.12H 400 MG PO (08:44)
[2022-01-08] MEDS: hydroCHLOROthiazide 25 MG TABLET PO (08:44)
[2022-01-08] MEDS: amLODIPine Besylate 10 MG TABLET PO (08:45)
[2022-01-08] MEDS: Cholecalciferol (Vitamin D3) 25 MCG TABLET PO (08:45)
[2022-01-08] MEDS: Levothyroxine Sodium 50 MCG TABLET PO (08:46)
--- NOTE | 2022-01-08 11:38 | PM.PSYDC ---
DS: Providers Provider Date of Service: 01/08/22 Date of admission: 12/20/21 14:16 Primary care physician: Unknown Physician DS: Diagnosis Discharge Diagnosis (1) Bipolar 1 disorder: Status: Acute DS: Medications Discharge Medications Home Medications: Home Medications Medication Instructions Recorded Confirmed aspirin 81 mg capsule,delayed 81 mg PO DAILY 12/19/21 12/19/21 release Previous Rx's Medication Instructions Recorded Vitamin D3 1,000 units PO QAM supplement 30 01/08/22 days #30 caps amlodipine 10 mg tablet 10 mg PO DAILY 30 days #30 tabs 01/08/22 aspirin 81 mg tablet,delayed 81 mg PO DAILY 30 days #30 tabs 01/08/22 release carbamazepine 200 mg 400 mg PO BID 30 days #120 tabs 01/08/22 tablet,extended release,12 hr fenofibrate 50 mg capsule 200 mg PO DAILY 30 days #120 caps 01/08/22 gabapentin 300 mg capsule 300 mg PO BEDTIME 30 days #30 caps 01/08/22 glipizide 5 mg tablet 5 mg PO DAILY 30 days #30 tabs 01/08/22 hydrochlorothiazide 25 mg tablet 25 mg PO DAILY 30 days #30 tabs 01/08/22 levothyroxine 50 mcg capsule 50 mcg PO QAM 30 days #30 caps 01/08/22 lisinopril 40 mg tablet 40 mg PO QAM 30 days #30 tabs 01/08/22 metformin 1,000 mg tablet 1,000 mg PO QAM 30 days #30 tabs 01/08/22 metoprolol succinate 200 mg 200 mg PO QPM 30 days #30 ea 01/08/22 capsule sprinkle, ext. release 24 hr quetiapine 300 mg tablet 600 mg PO QPM 30 days #60 tabs 01/08/22 salmon oil-omega-3 fatty acids 1,000 cap PO QPM 30 days #30 caps 01/08/22 simvastatin 20 mg tablet 20 mg PO BEDTIME 30 days #30 tabs 01/08/22 trazodone 50 mg tablet 50 mg PO BEDTIME PRN Insomnia 30 01/08/22 days #30 tabs Data Data Completed and Pending Completed studies during hospitalization [Text1]: 01/01/22 01/02/22 01/02/22 20:50 08:35 21:28 WBC RBC Hgb Hct MCV MCH MCHC RDW Plt Count MPV Immature Gran % (Auto) Neut % (Auto) Lymph % (Auto) [place] % (Auto) Eos % (Auto) Baso % (Auto) Lymph # (Auto) [place] # (Auto) Eos # (Auto) Baso # (Auto) Abs Immat Gran (auto) Absolute Neuts (auto) Absolute Nucleated RBC Nucleated RBC % (auto) Sodium Potassium Chloride Carbon Dioxide Anion Gap BUN Creatinine Estim Creat Clear Calc Estimated GFR POC Glucose 180 H 119 H 163 H Random Glucose Calcium Total Bilirubin Direct Bilirubin AST ALT Alkaline Phosphatase Total Protein Albumin [facility] 01/03/22 01/03/22 01/04/22 09:19 20:44 08:45 WBC 4.4 L RBC 4.17 L Hgb 13.6 L Hct 39.4 L MCV 94.5 MCH 32.6 MCHC 34.5 RDW 12.3 Plt Count 186 MPV 10.5 Immature Gran % (Auto) 0.2 Neut % (Auto) 33.5 L Lymph % (Auto) 50.5 H [place] % (Auto) 10.4 Eos % (Auto) 4.7 H Baso % (Auto) 0.7 Lymph # (Auto) 2.2 [place] # (Auto) 0.5 Eos # (Auto) 0.2 Baso # (Auto) 0.0 Abs Immat Gran (auto) 0.01 Absolute Neuts (auto) 1.5 L Absolute Nucleated RBC 0.000 Nucleated RBC % (auto) 0.0 Sodium Potassium Chloride Carbon Dioxide Anion Gap BUN Creatinine Estim Creat Clear Calc Estimated GFR POC Glucose 126 H 145 H Random Glucose Calcium Total Bilirubin Direct Bilirubin AST ALT Alkaline Phosphatase Total Protein Albumin [facility] 01/04/22 01/04/22 01/04/22 08:45 08:45 08:48 WBC RBC Hgb Hct MCV MCH MCHC RDW Plt Count MPV Immature Gran % (Auto) Neut % (Auto) Lymph % (Auto) [place] % (Auto) Eos % (Auto) Baso % (Auto) Lymph # (Auto) [place] # (Auto) Eos # (Auto) Baso # (Auto) Abs Immat Gran (auto) Absolute Neuts (auto) Absolute Nucleated RBC Nucleated RBC % (auto) Sodium 142 Potassium 4.6 Chloride 104 Carbon Dioxide 28 Anion Gap 15 BUN 28 H Creatinine 1.35 Estim Creat Clear Calc 63.6 Estimated GFR 52 POC Glucose 109 Random Glucose 135 H Calcium 9.2 Total Bilirubin 0.6 Direct Bilirubin 0.2 AST 32 ALT 42 H Alkaline Phosphatase 29 L Total Protein 7.0 Albumin 4.1 Carbamazepine 7.2 01/04/22 01/05/22 01/06/22 21:12 09:15 21:12 WBC RBC Hgb Hct MCV MCH MCHC RDW Plt Count MPV Immature Gran % (Auto) Neut % (Auto) Lymph % (Auto) [place] % (Auto) Eos % (Auto) Baso % (Auto) Lymph # (Auto) [place] # (Auto) Eos # (Auto) Baso # (Auto) Abs Immat Gran (auto) Absolute Neuts (auto) Absolute Nucleated RBC Nucleated RBC % (auto) Sodium Potassium Chloride Carbon Dioxide Anion Gap BUN Creatinine Estim Creat Clear Calc Estimated GFR POC Glucose 160 H 134 H 240 H Random Glucose Calcium Total Bilirubin Direct Bilirubin AST ALT Alkaline Phosphatase Total Protein Albumin Carbamazepine 01/08/22 08:33 WBC RBC Hgb Hct MCV MCH MCHC RDW Plt Count MPV Immature Gran % (Auto) Neut % (Auto) Lymph % (Auto) [place] % (Auto) Eos % (Auto) Baso % (Auto) Lymph # (Auto) [place] # (Auto) Eos # (Auto) Baso # (Auto) Abs Immat Gran (auto) Absolute Neuts (auto) Absolute Nucleated RBC Nucleated RBC % (auto) Sodium Potassium Chloride Carbon Dioxide Anion Gap BUN Creatinine Estim Creat Clear Calc Estimated GFR POC Glucose 147 H Random Glucose Calcium Total Bilirubin Direct Bilirubin AST ALT Alkaline Phosphatase Total Protein Albumin Carbamazepine Imaging Diagnostic Imaging Impressions Foot X-Ray 12/21/21 13:55 IMPRESSION: No fracture seen. DS: Summary Time Spent with Patient Time attestation: Total time spent providing and/or coordinating discharge services: Discharge Plan Discharge Anticipated Discharge Date/Time: 01/08/22 13:00 Patient Disposition: Home, Self-Care Discharge Diagnosis: Bipolar I Disorder, MRE Cordelia Referrals: Dr. Hernandez (psychiatrist) [Other] - 01/24/22 12:00 pm (Telehealth appointment) Yanick Feldman (therapist) [Other] - 01/10/22 10:00 am (Telehealth appointment) [facility] [Physician] - 1 Week Discharge Medications: New carbamazepine 200 mg Tablet Extended Release 12 Hr 400 mg PO BID 30 Days Qty: 120 0RF gabapentin 300 mg Capsule 300 mg PO BEDTIME 30 Days Qty: 30 0RF trazodone 50 mg Tablet 50 mg PO BEDTIME PRN (Reason: Insomnia) 30 Days Qty: 30 0RF hydrochlorothiazide 25 mg Tablet 25 mg PO DAILY 30 Days Qty: 30 0RF Protocol: Hold for SBP< HOLD for SBP < : 90 glipizide 5 mg Tablet 5 mg PO DAILY 30 Days Qty: 30 0RF aspirin 81 mg Tablet,Delayed Release (Dr/Ec) 81 mg PO DAILY 30 Days Qty: 30 0RF [place] [employer]-[place]-3 Fatty Acids 1,000 cap PO QPM 30 Days Qty: 30 0RF Continued aspirin 81 mg Capsule,Delayed Release(Dr/Ec) 81 mg PO DAILY quetiapine 300 mg Tablet 600 mg PO QPM 30 Days Qty: 60 0RF amlodipine 10 mg Tablet 10 mg PO DAILY 30 Days Qty: 30 0RF simvastatin 20 mg Tablet 20 mg PO BEDTIME 30 Days Qty: 30 0RF metformin 1,000 mg Tablet 1,000 mg PO QAM 30 Days Qty: 30 0RF lisinopril 40 mg Tablet 40 mg PO QAM 30 Days Qty: 30 0RF fenofibrate 50 mg Capsule 200 mg PO DAILY 30 Days Qty: 120 0RF levothyroxine 50 mcg Capsule 50 mcg PO QAM 30 Days Qty: 30 0RF metoprolol succinate 200 mg Capsule,Sprinkle,Er 24hr 200 mg PO QPM 30 Days Qty: 30 0RF Vitamin D3 1,000 units capsule 1,000 units PO QAM 30 Days Qty: 30 0RF Discontinued citalopram 40 mg Tablet 40 mg PO DAILY gabapentin 300 mg Tablet 300 mg PO BEDTIME glimepiride 2 mg Tablet 2 mg PO QAM Rx Instructions: administer with breakfast hydrochlorothiazide 12.5 mg Tablet 12.5 mg PO QAM metformin 500 mg Tablet 500 mg PO QPM [place] [employer]-1000 1,000-200 mg Capsule 1,000 cap PO QPM Discharge Orders: Discharge Order (Routine); Ordered 01/08/22 Ordered By: Levy Olson Diet: Diabetic diet Activity on Discharge: As tolerated Stand Alone Forms: Patient Portal Discharge page, Community Support Care Plan Goals: remain safe and stable in the outpatient treatment setting Health Concerns: elevated liver enzymes obesity Diabetes Mellitus HTN Hyperlipidemia anemia Plan of Treatment: take medications as prescribed, attend appointments as scheduled Assessment: not at imminent risk of harm to self or others Discharge Date/Time: 01/08/22 13:20
[2022-01-08 12:03] LABS: MANUAL DIFF FLAG NO
[2022-01-08 12:05] LABS: Basophils Absolute Auto 0.1 X10*3/uL (0.0-0.2); Basophils Percent Auto 0.8 % (0-2); Eosinophils Absolute Auto 0.3 X10*3/uL (0.0-0.4); Eosinophils Percent Auto 4.5 % (0-4); Hematocrit 42.7 % (42.0-52.0); Hemoglobin 14.6 g/dl (14.0-18.0); Imm Gran Abs Auto 0.02 X10*3/uL (0.00-0.03); Imm Gran Pct Auto 0.3 % (0.0-0.4); Lymphocytes Absolute Auto 2.8 X10*3/uL (1.2-4.9); Lymphocytes Percent Auto 45.2 % (20-40); Mean Corpuscular HGB Conc 34.2 g/dl (31.0-36.0); Mean Corpuscular Hemoglobin 32.2 pg (27.0-33.0); Mean Corpuscular Volume 94.3 fL (80.0-98.0); Mean Platelet Volume 10.5 fL (9.4-12.4); Monocytes Absolute Auto 0.6 X10*3/uL (0.1-1.2); Monocytes Percent Auto 9.4 % (2-11); Neutrophils Absolute Auto 2.5 x10*3/uL (2.0-8.3); Neutrophils Percent Auto 39.8 % (45-73); Platelet Count 214 X10*3/uL (160-400); Red Blood Count 4.53 X10*6/uL (4.60-5.80); Red Cell Distribution Width 12.4 % (11.0-16.0); White Blood Count 6.3 X10*3/uL (4.8-10.8)
--- NOTE | 2022-01-08 13:25 | PC.NURSE ---
Pt is ready and aware of discharge. Denies SI/HI/VH/AH .Denies physical complaints at this time. Discharge instructions and meds reviewed with Wade and his son, they both verbalized understanding of meds and appointments.
[2022-01-08 14:20] LABS: Alanine Aminotransferase 50 U/L (0-40); Albumin Level 4.6 g/dL (3.5-5.0); Alkaline Phosphatase 34 U/L (39-117); Anion Gap 13 (12-20); Aspartate Amino Transferase 40 U/L (5-37); Bilirubin Direct 0.2 mg/dL (0.0-0.5); Bilirubin Total 0.3 mg/dL (0.0-1.0); Blood Urea Nitrogen 23 mg/dL (9-16); Calcium 9.7 mg/dL (8.4-10.2); Carbon Dioxide 28 mmol/L (22-29); Chloride 103 mmol/L (96-108); Creatinine Clr Calc Pharmacy 65.5; Estimated Glomerular Filt Rate 54; Glucose Random 156 mg/dL (60-115); Potassium 4.2 mmol/L (3.3-5.1); Sodium 140 mmol/L (135-145); Total Protein 7.7 g/dL (6.5-8.0)
[2022-01-08 14:38] LABS: Carbamazepine Tegretol 8.2 mcg/mL (5.0-12.0)
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
== END 2022-01-08 13:20 | disposition home or self-care (01) | DRG 885 ==
LOC: HO.ED 12-20 09:58 → HO.PADLT16 12-20 14:23
PROVIDERS: Admitting Provider Psychiatry & Neurology Psychiatry; Emergency Provider Emergency Medicine Emergency Medical Services; Visit Provider Psychiatry & Neurology Psychiatry
DX: F31.10 Bipolar disorder, current episode manic without psychotic features, unspecified (principal); Z20.822 Contact with and (suspected) exposure to COVID-19; Z79.82 Long term (current) use of aspirin; Z79.84 Long term (current) use of oral hypoglycemic drugs; Z79.890 Hormone replacement therapy; Z79.899 Other long term (current) drug therapy
CPT/HCPCS: 36415; 73630; 80048; 80053; 80061; 80076; 80156; 80307; 82607; 82947; 83036; 84439; 84443; 85025; 87635; 90792; 93005; 99285